=== PATIENT | male | born 1980 | race Caucasian/White ===

== ENCOUNTER 2021-05-25 01:24 | Emergency (ER) | payer OTHER, SELFPAY ==
--- OUTSIDE RECORDS SUMMARY | 2021-05-25 01:27 | XMS REPORT | Continuity of Care Document ---
:1980 Author Organization [facility] t Address [address] [place] [address] Care Team Providers Name Role Phone PCP, DOES NOT HAVE A Primary Care Physician Unavailable Prateek MEZA L Attending Clinician Mandy DIAZ S Attending Clinician Jewels ONTIVEROS Attending Clinician Unavailable Beni LOPEZ Attending Clinician Unavailable MOREIRA Attending Clinician Unavailable MOREIRA Admitting Clinician Unavailable Payers Payer Name Policy Type Policy Number Effective Date Expiration Date S kimi [facility] - [id number] 2019 00:00:00 OUT OF STATE Problems Condition Condition Condition Status Onset Resolution Last Treating Co mments Source Name Details Category Date Date Treatment Clinician Date No known No known Disease Unive rs active active ity of problems problems [facility] Allergies, Adverse Reactions, Alerts Allergy Allergy Status Severity Reaction(s) Onset Inactive Treating Comm ents Source Name Type Date Date Clinician KETOROLA DRUG Active Anxiety Univers C INGREDI 6-30 ity of TROMETHA 00:00: [place] MINE 00 Medical Branch Ketorola Propensi Active Anxiety 0 Unive rs c ty to 6-30 ity of Trometha adverse 00:00: [place] mine reaction Medical s Branch Social History Social Habit Start Date Stop Date Quantity Comments Source History of Chews Tobacco University of tobacco use [place] [facility] [place] History SDGA University o f Alcohol Frequency [place] [facility] History SDGA University o f Alcohol Std [place] [facility] Drinks Branch History SDGA University o f Alcohol Binge [place] [facility] [place] Exposure to Not sure University of SARS-CoV-2 [place] [facility] (event) Branch Tobacco use and 2021-01-09 2021-01-09 Current user Univers ity of exposure 00:00:00 00:00:00 [facility] Alcohol intake 2021-01-09 2021-01-09 Current drinker of Un iversity of 00:00:00 00:00:00 alcohol (finding) [facility] edical [place] Alcohol Comment 2021-01-09 2021-01-09 Occasionally Univers ity of 00:00:00 00:00:00 [facility] Sex Assigned At [birth year] Universit y of 00:00:00 00:00:00 [facility] Smoking Status Start Date Stop Date Source Current every day smoker 2021-01-09 00:00:00 Uni versity of [facility] Medications Ordered Filled Start Stop Current Ordering Indication Dosage Frequency Signature Comments Components Source Medication Medication Date Date Medication? Clinician (SIG) Name Name lisinopril Yes 5mg Take 5 mg Un wilver 2.5 mg 7-30 by mouth ity of tablet 10:23: daily. [place] [address] [facility] methylPREDN Yes [id number] 84mg Take 21 Univers ISolone 7-30 tablets by ity of (MEDROL, 00:00: mouth [place] ELLA,) 4 mg 00 SEE-INSTRU Med ical tablets CTIONS. Branch follow package directions omeprazole Yes 40mg Take 40 mg U nivers 40 mg 7-17 by mouth ity of capsule 00:00: daily. [place] [address] [facility] amLODIPine Yes 1{tbl} Take 1 Uni vers 5 mg tablet 7-17 tablet by ity of 00:00: mouth [place] 00 daily. Medical Branch ondansetron Yes [id number] 4mg Take 1 Univers (ZOFRAN 8-31 tablet by ity of ODT) 4 mg 00:00: mouth [place] disintegrat 00 every 8 Medic al ing tablet (eight) Branch hours as needed for Nausea and Vomiting (N/V). acetaminoph Yes [id number] 1{tbl} Take 1 Univers en-codeine 6-09 [id number] tablet by it y of (TYLENOL-CO 00:00: mouth [place] DEINE #3) 00 every 6 Medical 300-30 mg (six) Branch tablet hours as needed for Pain (scale 7-10). ibuprofen Yes [id number] 800mg Take 1 Univers 800 mg 11-19 [id number] tablet by ity of tablet 00:00: mouth 00 every 8 Medical (eight) Branch hours as needed for Pain (scale 4-6). traMADOL 50 Yes 50mg Take 1 Univ ers mg tablet 6-24 tablet by ity o f 00:00: mouth 00 every 6 Medical (six) Branch hours as needed (pain). Immunizations Ordered Filled Immunization Date Status Comments [facility] e Immunization Name Name TDAP (ADACEL) 2019-11-20 Completed University of VACCINE 00:00:00 [facility] Vital Signs Vital Name Observation Time Observation Value Comments Source Systolic blood 2021-01-09 15:20:00 113 mm[Hg] Univer sity [facility] Diastolic blood 2021-01-09 15:20:00 73 [facility]Hg[facility] 2021-01-09 15:20:00 78 /min [facility] Procedures This patient has no known procedures. Encounters Start End Encounter Admission Attending Care Care Encounter Source Date/Time Date/Time Type Type Clinicians Facility Department ID 2021-04-14 Emergency [facility] [id number] Univers 01:24:14 [facility] 2021-01-09 2021-01-[address] [facility] [id number] Univers 10:16:46 10:52:49 Visit Silvino Ontiveros [id number] [facility] [id number] Brad as SPECIALTI [id number] Hi dical ES 198 Branch [place] 2021-01-09 2021-01-09 Outpatient R MANDY [facility] [id number] Univers 10:15:00 10:52:49 SILVINO lee [facility] 2020-11-22 2020-11-[address] [facility] ERT [id number] Univers 22:49:00 22:49:00 SEDRICK [facility] 2020-11-04 2020-11-[address] [facility] ERT [id number] Univers 22:01:00 [facility]:47[facility] 2020-02-11 2020-02-11 [facility] [id number] Univers 00:51:00 00:51:00 SEGUNDO [facility] 2019-11-20 2019-11-20 Emergency X MOREIRA, [facility] ERT [id number] Univers 19:36:41 [facility]:05[facility] This patient has no known results.
[2021-05-25 01:44] LABS: Urine Blood Trace-intact (Negative); Urine Glucose Negative (Negative); Urine Protein Negative (Negative); Urine pH 5.5 (5.0-7.0)
[2021-05-25] MEDS ORDERED: ONDANSETRON 4 MG/2 ML VIAL ONE (01:48)
[2021-05-25] MEDS ORDERED: NA CHLORIDE 0.9% 1,000 ML ONE ×3 (01:48→04:53)
[2021-05-25] MEDS ORDERED: FAMOTIDINE 20 MG/2 ML VIAL IV ONE (01:48)
[2021-05-25 01:56] LABS: Absolute Lymphocytes (CBC) 4.2 K/uL (0.7-4.9); Basophils % 0.4 % (0-1.3); Hematocrit 44.3 % (39.6-49.0); Lymphocytes % 42.4 % (15.3-44.8); RBC Red Blood Cell Count 4.97 M/uL (4.33-5.43)
[2021-05-25 01:59] LABS: Protime INR 1.01
[2021-05-25 02:04] LABS: Barbiturates NEGATIVE (NEGATIVE); Benzodiazepines NEGATIVE (NEGATIVE); Cocaine NEGATIVE (NEGATIVE); METHAMPHETAM NEGATIVE (NEGATIVE); Methadone NEGATIVE (NEGATIVE); Opiates NEGATIVE (NEGATIVE); Phencyclidine NEGATIVE (NEGATIVE); THC Cannibis NEGATIVE (NEGATIVE)
[2021-05-25 02:11] LABS: ALT/SGPT 54 U/L (12-78); AST/SGOT 22 U/L (15-37); Albumin 4.1 g/dL (3.4-5.0); Alkaline Phosphatase 90 U/L (45-117); BUN Blood Urea Nitrogen 9 mg/dL (7-18); Bicarbonate 24 mmol/L (21-32); Bilirubin Direct < 0.1 mg/dL (0-0.2); Bilirubin Total 0.2 mg/dL (0.2-1.0); Glucose Level 110 mg/dL (74-106); Potassium 3.4 mmol/L (3.5-5.1); Protein, Total 7.8 g/dL (6.4-8.2); Sodium Level 147 mmol/L (136-145)
[2021-05-25] MEDS ORDERED: KCL 20 MEQ/100 mL IVPB 100 ML IV ONE (04:53)
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
--- NOTE | 2021-05-25 05:08 | EDPHYS ---
Physician Documentation [facility] Name: Sergo Bliss Sr Age: 40 yrs Sex: Male : 1980 Arrival Date: 05/25/2021 Time: 01:26 Bed 8 Private MD: ED Physician Jack Miranda HPI: 05/25 01:50 This 40 yrs old Male presents to ER via Unassigned with complaints of Alcohol cp Intoxication. 01:50 The patient presents to the emergency department alcohol intoxication. Context: EMS cp reports patient has been consuming alcohol all evening. Associated signs and symptoms: Pertinent positives: decreased level of consciousness, Pertinent negatives: auditory hallucinations, visual hallucinations, suicidal ideations. Historical: - Allergies: 01:56 Toradol; lp1 - Home Meds: 01:56 amlodipine 5 mg tab 1 tab once daily [Active]; omeprazole 40 mg Oral cpDR 1 cap 2 times lp1 per day [Active]; - PMHx: 01:56 Hypertension; GERD; lp1 - PSHx: 01:56 Unable to Obtain; lp1 - Immunization history:: Adult Immunizations up to date. - Social history:: Smoking status: Patient reports the use of cigarette tobacco products, smokes one-half pack cigarettes per day. ROS: 01:55 Constitutional: Negative for fever. cp 01:55 Eyes: Negative for injury, pain, redness, and discharge. cp 01:55 Cardiovascular: Negative for chest pain. 01:55 Respiratory: Negative for wheezing. 01:55 Abdomen/GI: Positive for nausea and vomiting, Negative for diarrhea, constipation. 01:55 Neuro: Positive for altered mental status, Negative for seizure activity. 01:55 All other systems are negative. Exam: 01:56 ECG was reviewed by the Attending Physician. cp 02:00 Head/Face: Normocephalic, atraumatic. cp 02:00 Constitutional: The patient appears non-diaphoretic, well developed, well nourished. 02:00 Eyes: Pupils: equal, round, and reactive to light and accomodation, Conjunctiva: normal, no exudate, no injection, Lids and lashes: appear normal, bilaterally. 02:00 ENT: External ear(s): are unremarkable, Nose: is normal, Mouth: Lips: moist, Oral mucosa: moist, Posterior pharynx: Airway: no evidence of obstruction, patent. 02:00 Neck: C-spine: vertebral tenderness, is not appreciated, crepitus, is not appreciated, ROM/movement: is normal, is supple, no meningismus, no nuchal rigidity. 02:00 Chest/axilla: Inspection: normal, Palpation: is normal, no crepitus, no tenderness. 02:00 Cardiovascular: Rate: tachycardic, Rhythm: regular. 02:00 Respiratory: the patient does not display signs of respiratory distress, Respirations: cp normal, no use of accessory muscles, no retractions, Breath sounds: are clear throughout, no decreased breath sounds, no stridor, no wheezing. 02:00 Abdomen/GI: Inspection: abdomen appears normal, Palpation: abdomen is soft and non-tender, in all quadrants. 02:00 Musculoskeletal/extremity: Exam is negative for decreased range of motion, deformity, injury. 02:00 Neuro: Mentation: somnolent, Motor: moves all fours, strength is normal. Vital Signs: 01:30 BP 138 / 95; Pulse 120; Resp 20; Temp 98.1(TE); Pulse Ox 98% on R/A; lp1 02:30 BP 128 / 97; Pulse 98; Resp 18; Pulse Ox 97% on R/A; lp1 03:49 BP 108 / 61; Pulse 87; Resp 16; Pulse Ox 97% on R/A; lp1 04:45 BP 95 / 50; Pulse 95; Resp 17; Pulse Ox 96% on R/A; lp1 05:43 BP 104 / 46; Pulse 82; Resp 16; Pulse Ox 97% on R/A; lp1 07:00 BP 107 / 78; Pulse 76; Resp 16; Pulse Ox 97% on R/A; Pain 0/10; ll3 MDM: 01:26 Patient medically screened. [facility] 02:00 Differential diagnosis: alcohol intoxication, intracranial bleed, drug overdose. 03:00 Data reviewed: vital signs, nurses notes, lab test result(s), EKG. 03:00 Test interpretation: by ED physician or midlevel provider: ECG. 05/25 01:27 Order name: Acetaminophen 05/25 01:27 Order name: Basic Metabolic Panel 05/25 01:27 Order name: CBC with Diff 05/25 01:27 Order name: ETOH Level 05/25 01:27 Order name: Hepatic Function cp 05/25 01:27 Order name: PT-INR; Complete Time: 02:19 cp 05/25 01:27 Order name: Ptt, Activated; Complete Time: 02:19 cp 05/25 01:27 Order name: Salicylate; Complete Time: 02:19 05/25 02:20 Interpretation: Reviewed. 05/25 01:27 Order name: Urine Drug Screen; Complete Time: 02:19 cp 05/25 01:27 Order name: Acetaminophen Level; Complete Time: 02:19 EDMS 05/25 02:19 Interpretation: Reviewed. 05/25 01:27 Order name: Basic Metabolic Panel; Complete Time: 02:19 EDMS 05/25 02:20 Interpretation: Normal except: NA 147; K 3.4; CL 113; GLUC 110; GFR 78. 05/25 01:27 Order name: CBC with Automated Diff; Complete Time: 02:19 EDMS 05/25 01:27 Order name: Alcohol Serum/Plasma; Complete Time: 02:19 EDMS 05/25 02:20 Interpretation: Abnormal: ETOH 291. cp 05/25 01:27 Order name: Liver (Hepatic) Function; Complete Time: 02:19 EDMS 05/25 02:20 Interpretation: Normal except: GLOB 3.7. 05/25 01:27 Order name: EKG; Complete Time: 01:27 cp 05/25 01:27 Order name: EKG - Nurse/Tech; Complete Time: 01:46 05/25 01:27 Order name: IV Saline Lock; Complete Time: 01:46 05/25 01:27 Order name: Labs collected and sent; Complete Time: 01:46 05/25 01:27 Order name: Suicide Screening ([place]); Complete Time: 01:46 05/25 01:27 Order name: Urine Dipstick-Ancillary (obtain specimen); Complete Time: 01:46 05/25 01:44 Order name: Urine Dipstick-Ancillary; Complete Time: 02:19 EDWA 05/25 03:11 Order name: CT Head C Spine cp EC:56 Rate is 108 beats/min. Rhythm is regular. MD interval is normal. QRS interval is cp prolonged at 110 msec. QT interval is normal. T waves are Inverted in lead aVR. Interpreted by me. Reviewed by me. Administered Medications: 01:50 Drug: NS 0.9% 1000 ml Route: IV; Rate: 1 bolus; Site: right antecubital; lp1 03:14 Follow up: IV Status: Completed infusion; IV Intake: 1000ml lp1 01:51 Drug: Zofran (Ondansetron) 4 mg Route: IVP; Site: right antecubital; lp1 03:14 Follow up: Response: Nausea is decreased lp1 01:51 Drug: Pepcid (famotidine) 20 mg Route: IVP; Site: right antecubital; lp1 03:14 Follow up: Response: No adverse reaction lp1 03:19 Drug: NS 0.9% 1000 ml Route: IV; Rate: 1 bolus; Site: right antecubital; lp1 04:59 Follow up: IV Status: Completed infusion; IV Intake: 1000ml lp1 03:53 Drug: Zofran (Ondansetron) 4 mg Route: IVP; Site: right antecubital; lp1 04:55 Drug: Potassium Chloride 20 mEq Route: IV; Rate: per protocol; Site: right antecubital; lp1 06:51 Follow up: IV Status: Completed infusion; IV Intake: 100ml lp1 04:55 Drug: NS 0.9% 1000 ml Route: IV; Rate: 1 bolus; Site: right antecubital; lp1 Disposition: 11:07 Co-signature as Attending Physician, Jack Miranda MD I agree with the assessment and vel plan of care. Disposition Summary: 05/25/21 05:08 Discharge Ordered Location: Home vel Problem: new vel Symptoms: have improved vel Condition: Stable vel Diagnosis - Alcohol use, unspecified with intoxication vel - Hypokalemia vel Followup: cp - With: Private Physician - When: 1 - 2 days - Reason: Recheck today's complaints Discharge Instructions: - Potassium Content of Foods vel - Hypokalemia vel - Discharge Summary Sheet cp - Alcohol Intoxication cp Forms: - Medication Reconciliation Form vel - Thank You Letter vel - Antibiotic Education vel - Prescription Opioid Use vel Prescriptions: - Pepcid 20 mg Oral Tablet - take 1 tablet by ORAL route every 12 hours for 10 days; 20 tablet; Refills: 0, vel Product Selection Permitted - Zofran 4 mg Oral Tablet - take 1 tablet by ORAL route every 12 hours As needed; 20 tablet; Refills: 0, vel Product Selection Permitted Signatures: Dispatcher [employer] Jack Nolan MD MD cha Pena, Laura, RN RN lp1 Misha Richardson, ATMOSPHERIC PHYSICIST-C ATMOSPHERIC PHYSICIST-Cla1 Jack Wong PA PA cp
[2021-05-25 08:48] VITALS: TEMP 98.1
[2021-05-25 08:55] VITALS: O2SAT 97
[2021-05-25 08:57] VITALS: BP 107/78
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
== END 2021-05-25 08:42 | disposition home or self-care (01) ==
LOC: ER 01:24
DX: F10.929 Alcohol use, unspecified with intoxication, unspecified (principal); E87.6 Hypokalemia; I10 Essential (primary) hypertension; F17.210 Nicotine dependence, cigarettes, uncomplicated; Z88.5 Allergy status to narcotic agent
CPT/HCPCS: 36415; 70450; 72125; 80048; 80076; 80307; 80320; 80329; 81003; 85025; 85610; 85730; 93005; 96361; 96365; 96366; 96375; 99284; J2405; J3480; J7030

== ENCOUNTER 2021-10-19 02:39 | Emergency (ER) | payer BC ==
--- OUTSIDE RECORDS SUMMARY | 2021-10-19 02:42 | XMS REPORT | Continuity of Care Document ---
:1980 Author Organization [facility] t Address [address] [place] [address] Care Team Providers Name Role Phone PCP, DOES NOT HAVE A Primary Care Physician Unavailable ROB Attending Clinician Unavailable Prateek MEZA, L Attending Clinician Mandy DIAZ S Attending Clinician Jewels ONTIVEROS Attending Clinician Unavailable Beni LOPEZ Attending Clinician Unavailable HARISH Attending Clinician Unavailable MOREIRA Admitting Clinician Unavailable Payers Payer Name Policy Type Policy Number Effective Date Expiration Date S kimi [id number] 2019 00:00:00 OUT OF STATE Problems Condition Condition Condition Status Onset Resolution Last Treating Co mments Source Name Details Category Date Date Treatment Clinician Date No known No known Disease NPI:1 83 active active [id number] problems problems Allergies, Adverse Reactions, Alerts Allergy Allergy Status Severity Reaction(s) Onset Inactive Treating Comm ents Source Name Type Date Date Clinician Ketorola Propensi Active Anxiety NPI:1 83 c ty to 12-10 [id number] Trometha adverse 00:00: mine reaction 00 s KETOROLA DRUG Active Anxiety NPI:183 C INGREDI 12-10 [id number] TROMETHA 00:00: MINE 00 Social History Social Habit Start Date Stop Date Quantity Comments Source History of Chews Tobacco NPI:[id number] tobacco use History SDOH NPI:[id number] Alcohol Frequency History SDOH NPI:[id number] 81 Alcohol Std Drinks History SDOH NPI:[id number] 81 Alcohol Binge Exposure to Not sure NPI:[id number] 1 SARS-CoV-2 (event) Tobacco use and 2021-01-09 2021-01-09 Current user NPI:959 [id number] exposure 00:00:00 00:00:00 Alcohol intake 2021-01-09 2021-01-09 Current drinker of [employer] I:[id number] 00:00:00 00:00:00 alcohol (finding) Alcohol Comment 2021-01-09 2021-01-09 Occasionally NPI:915 [id number] 00:00:00 00:00:00 Sex [birth year] At [birth year] NPI:[id number] 00:00:00 00:00:00 Smoking Status Start Date Stop Date Source Tobacco smoking consumption unknown Current every day smoker 2021-01-09 00:00:00 NPI :[id number] Medications Ordered Filled Start Stop Current Ordering Indication Dosage Frequency Signature Comments Components Source Medication Medication Date Date Medication? Clinician (SIG) Name Name lisinopril Yes 5mg Take 5 mg [employer] I:183 2.5 mg 7-30 by mouth [id number] tablet 10:23: daily. 21 methylPREDN Yes [id number] 84mg Take 21 NPI:183 ISolone 7-30 tablets by [id number] (MEDROL, 00:00: mouth ELLA,) 4 mg 00 SEE-INSTRU tablets CTIONS. follow package directions omeprazole Yes 40mg Take 40 mg N PI:183 40 mg 7-17 by mouth [id number] capsule 00:00: daily. 00 amLODIPine Yes 1{tbl} Take 1 NPI :183 5 mg tablet 7-17 tablet by [id number] 00:00: mouth 00 daily. ondansetron Yes [id number] 4mg Take 1 NPI:183 (ZOFRAN 8-31 tablet by [id number] ODT) 4 mg 00:00: mouth disintegrat 00 every 8 ing tablet (eight) hours as needed for Nausea and Vomiting (N/V). acetaminoph 2019-0 Yes [id number] 1{tbl} Take 1 NPI:183 en-codeine 6-09 [id number] tablet by [id number] (TYLENOL-CO 00:00: mouth DEINE #3) 00 every 6 300-30 mg (six) tablet hours as needed for Pain (scale 7-10). ibuprofen Yes [id number] 800mg Take 1 NPI:183 800 mg 11-19 [id number] tablet by [id number] 1 tablet 00:00: mouth 00 every 8 (eight) hours as needed for Pain (scale 4-6). traMADOL 50 Yes 50mg Take 1 NPI: 183 mg tablet 6-24 [place] [id number] 00:00: mouth 00 every 6 (six) hours as needed (pain). Immunizations Ordered Immunization Filled Immunization Date Status Commen ts Source Name Name TDAP (ADACEL) 2019-11-20 Completed NPI:[id number] VACCINE 00:00:00 Vital Signs Vital Name Observation Time Observation Value Comments Source Systolic blood pressure 2021-01-09 15:20:00 113 mm[Hg] Diastolic blood 2021-01-09 15:20:00 73 mm[Hg] NPI:1 [id number] pressure Heart rate 2021-01-09 15:20:00 78 /min NPI:[id number] Procedures This patient has no known procedures. Encounters Start End Encounter Admission Attending Care Care Encounter Source Date/Time Date/Time Type Type Clinicians Facility Department ID 2021-07-06 Outpatient ROB [facility] [id number] NPI:152 13:49:19 CARRIE [id number] 2021-04-14 Emergency [facility] [id number] NPI:183 01:24:14 [id number] 6832-02-11 2021-07-24 Telephone VARINDER Nuñez 6400 [id number] NPI:152 00:00:00 00:00:00 Carrie ARI [id number] 2021-01-09 2021-01-09 Office Rosas Chandra [facility] [id number] NPI:183 10:16:46 10:52:49 Visit Silvino Ontiveros [facility] [id number] SURGICAL [id number] [facility] [id number] ES [address] [place] 2021-01-09 2021-01-09 Outpatient R MANDY [facility] [id number] NPI:183 10:15:00 10:52:49 SILVINO [id number] 2020-11-22 2020-11-22 Emergency X JOHN [facility] ERT [id number] NPI:183 22:49:00 22:49:00 SEDRICK [id number] 1 2020-11-04 2020-11-04 Emergency X [facility] ERT [id number] NPI:183 22:01:00 23:47:00 [id number] 2020-02-11 2020-02-11 Emergency [facility] ERT [id number] NPI:183 00:51:00 00:51:00 SEGUNDO [id number] 1 2019-11-20 2019-11-20 Emergency X HARISH [facility] ERT [id number] NPI:183 19:36:41 22:05:00 SEGUNDO [id number] 1 Results This patient has no known results.
[2021-10-19 02:58] LABS: Urine Blood Negative (Negative); Urine Glucose Negative (Negative); Urine Protein Negative (Negative); Urine Specific Gravity <=1.005 (1.005-1.030)
[2021-10-19 03:17] LABS: Absolute Lymphocytes (CBC) 3.3 K/uL (0.7-4.9); Hematocrit 42.4 % (39.6-49.0); Lymphocytes % 46.7 % (15.3-44.8); MPV 8.3 fL (7.6-11.3); RBC Red Blood Cell Count 4.83 M/uL (4.33-5.43)
[2021-10-19 03:18] LABS: Protime INR 1.02
[2021-10-19 03:20] LABS: Barbiturates NEGATIVE (NEGATIVE); Benzodiazepines NEGATIVE (NEGATIVE); Cocaine NEGATIVE (NEGATIVE); METHAMPHETAM NEGATIVE (NEGATIVE); Methadone NEGATIVE (NEGATIVE); Opiates NEGATIVE (NEGATIVE); Phencyclidine NEGATIVE (NEGATIVE); THC Cannibis NEGATIVE (NEGATIVE)
[2021-10-19 03:42] LABS: ALT/SGPT 68 U/L (12-78); AST/SGOT 26 U/L (15-37); Albumin 3.9 g/dL (3.4-5.0); Alkaline Phosphatase 83 U/L (45-117); BUN Blood Urea Nitrogen 11 mg/dL (7-18); Bicarbonate 23 mmol/L (21-32); Bilirubin Total 0.3 mg/dL (0.2-1.0); Glucose Level 103 mg/dL (74-106); Potassium 3.2 mmol/L (3.5-5.1); Protein, Total 7.4 g/dL (6.4-8.2); Sodium Level 142 mmol/L (136-145)
[2021-10-19] MEDS ORDERED: NA CHLORIDE 0.9% 1,000 ML ONE ×2 (03:44→06:31)
[2021-10-19 03:45] LABS: Bilirubin Direct < 0.1 mg/dL (0-0.2)
[2021-10-19 04:04] LABS: Troponin High Sensitivity 7.9 pg/mL (<58.9)
[2021-10-19 04:44] LABS: Magnesium 2.1 mg/dL (1.8-2.4)
[2021-10-19] MEDS ORDERED: PROMETHAZINE INJ 25 MG/ML AMP ONE (05:19)
[2021-10-19] MEDS ORDERED: FAMOTIDINE 20 MG/2 ML VIAL IV ONE (05:19)
[2021-10-19] MEDS ORDERED: MULTIVITAMINS 10 ML VIAL (INJ) IV ONE (06:31)
[2021-10-19] MEDS ORDERED: THIAMINE 200 MG/2 ML INJ ONE (06:31)
[2021-10-19] MEDS ORDERED: FOLIC ACID 5 MG/ML VIAL ONE (06:32)
--- NOTE | 2021-10-19 06:57 | ER ---
Nurse's Notes [facility] Name: Sergo Bliss Sr Age: 41 yrs Sex: Male : 1980 Arrival Date: 10/19/2021 Time: 02:41 Bed 5 Private MD: Diagnosis: Palpitations;Alcohol use, unspecified with intoxication Presentation: 10/19 02:41 Chief complaint: EMS states: family called EMS for seizure like activity, on arrival pt as6 said he had been drinking and when he drinks she will shake, hx of afib. Chief complaint: Patient states: "I am having chest pain". Coronavirus screen: At this time, the client does not indicate any symptoms associated with coronavirus-19. Ebola Screen: No symptoms or risks identified at this time. Initial Sepsis Screen: Does the patient meet any 2 criteria? No. Patient's initial sepsis screen is negative. Does the patient have a suspected source of infection? No. Patient's initial sepsis screen is negative. Risk Assessment: Do you want to hurt yourself or someone else? Patient reports no desire to harm self or others. Onset of symptoms was October 19, 2021. 02:41 Method Of Arrival: EMS: [facility] as6 02:41 Acuity: LAMAR 2 as6 02:50 Care prior to arrival: Medication(s) given: ASA, 81 mg, x 4, Nitroglycerin, 0.4 mg SL as6 IV initiated. 20 GA, in the left forearm. Historical: - Allergies: 02:47 Toradol; as6 - Home Meds: 02:47 amlodipine 5 mg tab 1 tab once daily [Active]; lisinopril 5 mg Oral tab 1 tab once as6 daily [Active]; omeprazole 40 mg Oral cpDR 1 cap 2 times per day [Active]; - PMHx: 02:47 GERD; Hypertension; Atrial fibrillation; as6 - PSHx: 02:47 Cholecystectomy; right hand; as6 - Immunization history:: Adult Immunizations not up to date. - Social history:: Smoking status: Patient reports the use of cigarette tobacco products, smokes one pack cigarettes per day. Patient uses alcohol. Screenin:49 Abuse screen: Denies threats or abuse. Denies injuries from another. Nutritional as6 screening: No deficits noted. Tuberculosis screening: No symptoms or risk factors identified. Fall Risk None identified. Assessment: 03:04 General: Appears in no apparent distress. Behavior is calm, cooperative. General: as6 Smells of alcohol. Pain: Complains of pain in chest Quality of pain is described as pressure, sharp. Neuro: Level of Consciousness is awake, alert, obeys commands, Oriented to person, place, time, situation. Cardiovascular: Rhythm is sinus tachycardia. Respiratory: Respiratory effort is even, unlabored, Respiratory pattern is regular, symmetrical. 03:56 Reassessment: Patient appears in no apparent distress at this time. as6 05:20 General: pt vomited on CT table, upon arrival back to room pt vomiting, provider as6 notified . 06:34 Reassessment: Patient appears in no apparent distress at this time. Patient states as6 feeling better. 07:16 Reassessment: Received report from ZHANE Soto. Pt up for discharge and can be discharged jl7 once fluids are done infusing. Approximately 700 mL left to infuse. 09:00 Reassessment: PT AOx4, AMBULATING WITH STEADY GAIT. bp 09:38 Reassessment: PT D/C HOME AMBULATORY, DX WITH ETOH INTOXICATION. bp Vital Signs: 02:41 BP 131 / 64; Pulse 120 MON; Resp 13 S; Temp 97.9(O); Pulse Ox 98% on R/A; Weight 99.79 as6 kg (R); Height 5 ft. 10 in. (177.80 cm) (R); Pain 7/10; 03:55 BP 106 / 63; Pulse 103; Resp 17 S; Pulse Ox 94% on R/A; as6 05:00 BP 101 / 49; Pulse 91; Resp 15 S; Pulse Ox 94% on R/A; as6 05:41 BP 152 / 97; Pulse 86; Resp 16 S; Pulse Ox 99% on R/A; as6 06:33 BP 125 / 86; Pulse 82; Resp 14 S; Pulse Ox 96% on R/A; as6 07:30 BP 131 / 85; Pulse 79; Resp 17; Pulse Ox 99% ; bp 09:38 BP 120 / 82; Pulse 74; Resp 16; Temp 97.5; Pulse Ox 99% ; bp 02:41 Body Mass Index 31.57 (99.79 kg, 177.80 cm) as6 ED Course: 02:41 Patient arrived in ED. as6 02:47 Triage completed. as6 02:48 Arm band placed on. EKG completed in triage. Results shown to MD. as6 02:49 Charles Anglin, RN is Primary Nurse. as6 02:49 Placed in gown. Bed in low position. Call light in reach. Side rails up X2. Client as6 placed on continuous cardiac and pulse oximetry monitoring. NIBP monitoring applied. Warm blanket given. 02:56 Urine Drug Screen Sent. mw2 03:02 Chad Gutierrez MD is Attending Physician. 7 03:04 Maintain EMS IV. Dressing intact. Good blood return noted. Site clean \\T\\ dry. Gauge \\T\\ as 6 site: 20g LFA. 05:04 Chest Single View XRAY In Process Unspecified. EDMS 05:18 CT Chest For PE Angio In Process Unspecified. EDMS 07:30 No provider procedures requiring assistance completed. IV discontinued, intact, bp bleeding controlled, No redness/swelling at site. Pressure dressing applied. 07:44 Primary Nurse role handed off by Charles Anglin, ZHANE bd 09:38 Sal Sweeney, ZHANE is Primary Nurse. bp Administered Medications: 03:46 Drug: NS 0.9% 1000 ml Route: IV; Rate: 1000 ml; Site: left forearm; as6 06:33 Follow up: Response: No adverse reaction; IV Status: Completed infusion; IV Intake: as6 1000ml 05:22 Drug: Phenergan (promethazine) 12.5 mg Route: IVP; Site: left forearm; as6 06:33 Follow up: Response: No adverse reaction as6 05:22 Drug: Pepcid (famotidine) 20 mg Route: IVP; Site: left forearm; as6 06:33 Follow up: Response: No adverse reaction as6 06:32 Drug: Banana Bag - (NS 0.9% 1000 ml, foLIC Acid 1 mg, Thiamine 100 mg, Multivitamin 1 as6 amp) Route: IV; Rate: calculated rate; Site: left forearm; 09:40 Follow up: IV Status: Completed infusion; IV Intake: 1000ml bp Intake: 06:33 IV: 1000ml; Total: 1000ml. as6 09:40 IV: 1000ml; Total: 2000ml. bp Outcome: 06:57 Discharge ordered by MD. mh7 07:30 Discharged to home ambulatory. bp 07:30 Condition: stable 07:30 Discharge instructions given to patient, Instructed on discharge instructions, follow up and referral plans. Demonstrated understanding of instructions, follow-up care. 09:40 Patient left the ED. bp Signatures: Dispatcher [employer] EDMS Christelle Parker Jahala, RN RN jl7 Sal Sweeney RN RN bp Samuel Clarke 2 Chad Gutierrez MD MD mh7 Charles Anglin RN RN as6
--- NOTE | 2021-10-19 06:57 | EDPHYS ---
Physician Documentation [facility] Name: Sergo Bliss Sr Age: 41 yrs Sex: Male : 1980 Arrival Date: 10/19/2021 Time: 02:41 Bed 5 Private MD: ED Physician Chad Gutierrez HPI: 10/19 02:55 This 41 yrs old Male presents to ER via EMS with complaints of Alcohol Intoxication. 7 02:55 The patient presents to the emergency department Alcohol use. Context: Method: the 7 patient has a confirmed or suspected ingestion, of alcohol, Time: today, Extent: moderate ingestion, approximately 12 cups/bottles of beer, the OD/poisoning occurred at at home, and was witnessed by family, Psychiatric history: none, Previous OD/poisoning history: none. Associated signs and symptoms: Pertinent positives: palpitations, Pertinent negatives: anxiety, apnea, auditory hallucinations, burning of skin, decreased level of consciousness, depression, diaphoresis, diarrhea, dizziness, incontinence, loss of consciousness, nausea. Severity of symptoms: At their worst the symptoms were moderate today, in the emergency department the symptoms have improved moderately. Historical: - Allergies: 02:47 Toradol; as6 - Home Meds: 02:47 amlodipine 5 mg tab 1 tab once daily [Active]; lisinopril 5 mg Oral tab 1 tab once as6 daily [Active]; omeprazole 40 mg Oral cpDR 1 cap 2 times per day [Active]; - PMHx: 02:47 GERD; Hypertension; Atrial fibrillation; as6 - PSHx: 02:47 Cholecystectomy; right hand; as6 - Immunization history:: Adult Immunizations not up to date. - Social history:: Smoking status: Patient reports the use of cigarette tobacco products, smokes one pack cigarettes per day. Patient uses alcohol. ROS: 02:55 Constitutional: Negative for fever, chills, and weight loss, Eyes: Negative for injury, mh7 pain, redness, and discharge, ENT: Negative for injury, pain, and discharge, Neck: Negative for injury, pain, and swelling, Respiratory: Negative for shortness of breath, cough, wheezing, and pleuritic chest pain. 02:55 Abdomen/GI: Negative for abdominal pain, nausea, vomiting, diarrhea, and constipation, Back: Negative for injury and pain, : Negative for injury, bleeding, discharge, and swelling, MS/Extremity: Negative for injury and deformity, Skin: Negative for injury, rash, and discoloration, Neuro: Negative for headache, weakness, numbness, tingling, and seizure, Psych: Negative for depression, anxiety, suicide ideation, homicidal ideation, and hallucinations, Allergy/Immunology: Negative for hives, rash, and allergies, Endocrine: Negative for neck swelling, polydipsia, polyuria, polyphagia, and marked weight changes, Hematologic/Lymphatic: Negative for swollen nodes, abnormal bleeding, and unusual bruising. 02:55 Cardiovascular: Negative for chest pain, edema, orthopnea, paroxysmal nocturnal dyspnea. Exam: 02:55 Head/Face: Normocephalic, atraumatic. Eyes: Pupils equal round and reactive to light, mh7 extra-ocular motions intact. Lids and lashes normal. Conjunctiva and sclera are non-icteric and not injected. Cornea within normal limits. Periorbital areas with no swelling, redness, or edema. ENT: Nares patent. No nasal discharge, no septal abnormalities noted. Tympanic membranes are normal and external auditory canals are clear. Oropharynx with no redness, swelling, or masses, exudates, or evidence of obstruction, uvula midline. Mucous membranes moist. Neck: Trachea midline, no thyromegaly or masses palpated, and no cervical lymphadenopathy. Supple, full range of motion without nuchal rigidity, or vertebral point tenderness. No Meningismus. Chest/axilla: Normal chest wall appearance and motion. Nontender with no deformity. No lesions are appreciated. 02:55 Respiratory: Lungs have equal breath sounds bilaterally, clear to auscultation and percussion. No rales, rhonchi or wheezes noted. No increased work of breathing, no retractions or nasal flaring. Abdomen/GI: Soft, non-tender, with normal bowel sounds. No distension or tympany. No guarding or rebound. No evidence of tenderness throughout. Back: No spinal tenderness. No costovertebral tenderness. Full range of motion. Skin: Warm, dry with normal turgor. Normal color with no rashes, no lesions, and no evidence of cellulitis. MS/ Extremity: Pulses equal, no cyanosis. Neurovascular intact. Full, normal range of motion. 02:55 Psych: Awake, alert, with orientation to person, place and time. Behavior, mood, and affect are within normal limits. 02:55 Constitutional: The patient appears in no acute distress, alert, awake, smells of alcohol, ETOH. 02:55 Cardiovascular: Rate: tachycardic, Rhythm: regular, Pulses: no pulse deficits are appreciated, Heart sounds: normal, normal S1and S2, Edema: is not appreciated, JVD: is not appreciated. 02:55 Neuro: Orientation: is normal, Mentation: is normal, Memory: is normal, Cranial nerves: grossly normal, Cerebellar function: is grossly normal, Motor: is normal, Sensation: is normal, Gait: not tested. seizure activity, is not displayed by the patient, Abnormal movements: there are no abnormal movements. Vital Signs: 02:41 BP 131 / 64; Pulse 120 MON; Resp 13 S; Temp 97.9(O); Pulse Ox 98% on R/A; Weight 99.79 as6 kg (R); Height 5 ft. 10 in. (177.80 cm) (R); Pain 7/10; 03:55 BP 106 / 63; Pulse 103; Resp 17 S; Pulse Ox 94% on R/A; as6 05:00 BP 101 / 49; Pulse 91; Resp 15 S; Pulse Ox 94% on R/A; as6 05:41 BP 152 / 97; Pulse 86; Resp 16 S; Pulse Ox 99% on R/A; as6 06:33 BP 125 / 86; Pulse 82; Resp 14 S; Pulse Ox 96% on R/A; as6 07:30 BP 131 / 85; Pulse 79; Resp 17; Pulse Ox 99% ; bp 09:38 BP 120 / 82; Pulse 74; Resp 16; Temp 97.5; Pulse Ox 99% ; bp 02:41 Body Mass Index 31.57 (99.79 kg, 177.80 cm) as6 MDM: 06:55 Differential diagnosis: Ingestion/exposure to alcohol polypharmacy, over medication, mh7 hypoglycemia. Data reviewed: vital signs, nurses notes, lab test result(s), cardiac enzymes, CBC, drug level(s), alcohol, electrolytes, EKG, radiologic studies, CT scan. Data interpreted: Pulse oximetry: on room air is 96 %. Interpretation: normal. Counseling: I had a detailed discussion with the patient and/or guardian regarding: the historical points, exam findings, and any diagnostic results supporting the discharge/admit diagnosis, lab results, radiology results, the need for outpatient follow up, to return to the emergency department if symptoms worsen or persist or if there are any questions or concerns that arise at home. Response to treatment: the patient's symptoms have resolved after treatment, the patient's blood pressure is in an acceptable range, mental status has returned to baseline, the patient no longer shows bradycardia, the patient is not short of breath, the patient is not tachycardic, the patient's pain is gone, the patient's temperature has normalized. 06:57 Patient medically screened. 10/19 02:53 Order name: Acetaminophen; Complete Time: 04:54 10/19 02:53 Order name: Basic Metabolic Panel; Complete Time: 04:54 10/19 02:53 Order name: CBC with Diff; Complete Time: 03:22 10/19 02:53 Order name: ETOH Level; Complete Time: 04:10/19 02:53 Order name: Hepatic Function; Complete Time: 04:54 10/19 02:53 Order name: PT-INR; Complete Time: 04:10/19 02:53 Order name: Ptt, Activated; Complete Time: 04:10/19 02:53 Order name: Salicylate; Complete Time: 04:10/19 02:53 Order name: Urine Drug Screen; Complete Time: 03:20 10/19 02:59 Order name: Urine Dipstick-Ancillary; Complete Time: 03:20 EDAL 10/19 03:20 Order name: Troponin High Sensitivity; Complete Time: 04:10/19 03:20 Order name: PROBNP; Complete Time: 04:10/19 02:53 Order name: EKG; Complete Time: 02:54 10/19 02:53 Order name: EKG - Nurse/Tech; Complete Time: 02:53 10/19 02:53 Order name: IV Saline Lock; Complete Time: 02:53 10/19 02:53 Order name: Labs collected and sent; Complete Time: 03:04 10/19 02:53 Order name: Suicide Screening ([place]); Complete Time: 02:53 10/19 02:53 Order name: Urine Dipstick-Ancillary (obtain specimen); Complete Time: 02:56 as6 10/19 03:45 Order name: Thyroid Stimulating Hormone; Complete Time: 04:54 EDMS 10/19 03:45 Order name: D-Dimer; Complete Time: 04:31 EDMS 10/19 04:31 Order name: Chest Single View XRAY [facility] 10/19 04:33 Order name: CT Chest For PE Angio [facility] 10/19 04:41 Order name: Magnesium; Complete Time: 04:54 EDMS Administered Medications: 03:46 Drug: NS 0.9% 1000 ml Route: IV; Rate: 1000 ml; Site: left forearm; as6 06:33 Follow up: Response: No adverse reaction; IV Status: Completed infusion; IV Intake: as6 1000ml 05:22 Drug: Phenergan (promethazine) 12.5 mg Route: IVP; Site: left forearm; as6 06:33 Follow up: Response: No adverse reaction as6 05:22 Drug: Pepcid (famotidine) 20 mg Route: IVP; Site: left forearm; as6 06:33 Follow up: Response: No adverse reaction as6 06:32 Drug: Banana Bag - (NS 0.9% 1000 ml, foLIC Acid 1 mg, Thiamine 100 mg, Multivitamin 1 as6 amp) Route: IV; Rate: calculated rate; Site: left forearm; 09:40 Follow up: IV Status: Completed infusion; IV Intake: 1000ml bp Disposition Summary: 10/19/21 06:57 Discharge Ordered Location: Home [facility] Problem: an acute exacerbation [facility] Symptoms: have improved [facility] Condition: Stable [facility] Diagnosis - Palpitations 7 - Alcohol use, unspecified with intoxication [facility] Followup: 7 - With: Private Physician - When: 1 - 2 days - Reason: Worsening of condition, Recheck today's complaints, Continuance of care, Re-evaluation by your physician Discharge Instructions: - Discharge Summary Sheet [facility] - Alcohol Intoxication, Xakg-[id number]-[id number] 7 - Palpitations, Oszc-zw-Bdci [facility] Forms: - Medication Reconciliation Form [facility] - Thank You Letter 7 - Antibiotic Education 7 - Prescription Opioid Use [facility] Signatures: Dispatcher [employer] Chad Aldrich MD MD mh7 Charles Anglin RN RN as6 Sal Sweeney RN bp Corrections: (The following items were deleted from the chart) 03:44 03:23 THYROID STIMULAT HORMONE+C.LAB.BRZ ordered. EDMS EDMS 03:45 03:23 D-DIMER+COAG.LAB.BRZ ordered. EDMS EDMS 04:41 04:33 MAGNESIUM+C.LAB.BRZ ordered. EDMS EDMS
--- NOTE | 2021-10-19 08:55 | EKG ---
Test Date: 2021-10-19 Test Time: 02:42:17 Pipe Coremaker: LEYDI MEASUREMENT RESULTS: Intervals: Rate: 126 RI: 156 QRSD: 108 QT: 312 QTc: 451 [place]: P: 61 RI: 156 QRS: 78 T: 43 INTERPRETIVE STATEMENTS: Sinus tachycardia Possible Lateral infarct, age undetermined Abnormal ECG Compared to ECG 05/25/2021 01:46:21 Myocardial infarct finding now present Incomplete right bundle-branch block no longer present Electronically Signed On 10-19-21 08:54:21 CDT by Viktor Zamora
[2021-10-19 10:06] VITALS: O2SAT 99
[2021-10-19 10:07] VITALS: BP 120/82; TEMP 97.5
--- NOTE | 2021-10-19 14:16 | RAD REPORT ---
EXAM DESCRIPTION: RAD - Chest Single View - 10/19/2021 5:02 am CLINICAL HISTORY: 1 years Male, PALPITATIONS COMPARISON: None FINDINGS: No focal lung consolidation. No pleural effusion. No pneumothorax. Cardiac and mediastinal silhouette is unremarkable. No acute osseous abnormality. Soft tissues are unremarkable. IMPRESSION: No acute findings. No focal lung consolidation. Electronically signed by: Francisco Abad DO 10/19/2021 5:12 AM CDT Due to temporary technical issues with the PACS/Fluency reporting system, reports are being signed by the in house radiologist without review as a courtesy to ensure prompt reporting. The interpreting r adiologist is fully responsible for the content of the report.
--- NOTE | 2021-10-19 14:18 | RAD REPORT ---
EXAM DESCRIPTION: CT - Chest For Pe Angio - 10/19/2021 6:45 am CLINICAL HISTORY: 41 years, Male, palpitations COMPARISON: None. TECHNIQUE: Axial images through the chest were performed after the administration of intravenous con trast using a pulmonary embolus protocol. MIPS were performed. This exam was performed according to our departmental dose-optimization program which includes use of Automated Exposure Control, adjustm ent of the mA and/or kV according to patient size and/or use of iterative reconstruction technique. FINDINGS: No pulmonary embolus is identified. Thoracic aorta is unremarkable. Cardiac chambers are mildly increased in size.. No coronary calcifications. No pericardial effusion. No pleural effusion. Diffuse groundglass appearance throughout the lungs. No focal areas of consolidation. No pneumothorax. Patent central airway. Soft tissues are unremarkable. No acute osseous findings. No acute abnormality within the visualized upper abdomen. Liver is only partially visualized but appe ars enlarged with diffuse fatty infiltration. IMPRESSION: Negative for pulmonary embolism. Electronically signed by: Francisco Abad DO 10/19/2021 6:06 AM CDT Due to temporary technical issues with the PACS/Fluency reporting system, reports are being signed by the in house radiologist without review as a courtesy to ensure prompt reporting. The interpreting r adiologist is fully responsible for the content of the report.
== END 2021-10-19 09:40 | disposition home or self-care (01) ==
LOC: ER 02:39
DX: R00.2 Palpitations (principal); F10.929 Alcohol use, unspecified with intoxication, unspecified; I10 Essential (primary) hypertension; I48.91 Unspecified atrial fibrillation; F17.210 Nicotine dependence, cigarettes, uncomplicated; Z88.5 Allergy status to narcotic agent
CPT/HCPCS: 93005; 85025; 80048; 36415; 80320; 83735; 80329 ×2; 85610; 85379; 80076; 85730; 84443; 81003; 84484; 83880; 80307; 71275; 71045; Q9967; J2550; J3411; J7030 ×2; J3490; 96361; 96365; 96366; 96375; 99284

== ENCOUNTER 2023-01-08 03:20 | Emergency (ER) | payer SELFPAY ==
--- OUTSIDE RECORDS SUMMARY | 2023-01-08 03:25 | XMS REPORT | Continuity of Care Document ---
:1980 Author Organization [facility] t Address [address] [facility] [address] [facility] [address] [place] [address] Care Team Providers Name Role Phone RICKY STILES JR Primary Care Physician Unavailable Gopal Lopes Attending Clinician Unavailable CARRIE RIVAS Attending Clinician Unavailable HOLA GOODSON Attending Clinician Unavailable Hola Goodsno NP Attending Clinician OSEAS MICHELLE Attending Clinician Unavailable Oseas Michelle MD Attending Clinician Doctor Unassigned, [place] Attending Clinician Unavailable Rosas Chandra MD Attending Clinician Silvino Zuluaga Attending Clinician SILVINO GALVAN Attending Clinician Unavailable Dyan Lopez DO Attending Clinician DYAN LOPEZ Attending Clinician Unavailable Chelo Schmitz Attending Clinician Segundo Shaffer Attending Clinician SEGUNDO MOREIRA Attending Clinician Unavailable Gopal Lopes Admitting Clinician Unavailable HOLA GOODSON Admitting Clinician Unavailable OSEAS MICHELLE Admitting Clinician Unavailable SEGUNDO MOREIRA Admitting Clinician Unavailable Payers Payer Name Policy Type Policy Number Effective Date Expiration Date S kimi [employer] [place] - [id number] 2019 00:00:00 OUT OF STATE Problems Condition Condition Condition Status Onset Resolution Last Treating Co mments Source Name Details Category Date Date Treatment Clinician Date No known No known Disease Unive rs active active ity of problems problems [facility] Allergies, Adverse Reactions, Alerts Allergy Allergy Status Severity Reaction(s) Onset Inactive Treating Comm ents Source Name Type Date Date Clinician ketorola DA Active U UNKNOWN [facility] [place] 00:00: Health 00 are [place] Ketorola Propensi Active Anxiety Unive rs c ty to 6-30 ity of Trometha adverse 00:00: [place] mine reaction 00 Medical s Branch KETOROLA DRUG Active Anxiety Univers C INGREDI 6-30 ity of TROMETHA 00:00: [place] MINE 00 Medical Branch Social History Social Habit Start Date Stop Date Quantity Comments Source History of Chews Tobacco University of tobacco use [place] [facility] [place] History SDOH University o f [facility] [place] History SDOH University o f Alcohol Std [place] [facility] Drinks Branch History SDLA University o f Alcohol Binge [place] [facility] al Branch Exposure to 2022-10-04 2022-10-14 Not sure University of SARS-CoV-2 00:00:00 20:10:00 [facility] (event) Branch Alcohol intake 2022-03-27 2022-03-27 Current drinker of Un iversity of 00:00:00 00:00:00 alcohol (finding) [facility] [place] Tobacco use and 2021-01-09 2021-01-09 User of smokeless Un iversity of exposure 00:00:00 00:00:00 tobacco [facility] Alcohol Comment 2021-01-09 2021-01-09 Occasionally Univers ity of 00:00:00 00:00:00 [facility] Sex Assigned At [birth year] [facility] 00:00:00 00:00:00 Smoking Status Start Date Stop Date Source Tobacco [facility] Smokes tobacco daily 2021-01-09 00:00:00 Univers ity of [facility] Medications Ordered Filled Start Stop Current Ordering Indication Dosage Frequency Signature Comments Components Source Medication Medication Date Date Medication? Clinician (SIG) Name Name dexamethaso No 10mg 10 mg, Uni vers ne 10-15 Intramuscu ity of (DECADRON 02:45: 03:25 lar, ONCE, [place] PHOSPHATE) 00 :00 1 dose, On Med ical injection [facility] 10/14/22 Bran ch 10 mg at 2145, Routine HYDROcodone 2022- No 1{tbl} 1 tablet, Univers -acetaminop 10-15 Oral, ity of hen (NORCO) 02:30: 03:19 ONCE, 1 [place] 10-325 mg 00 :00 dose, On Medica l tablet 1 [facility] 10/14/22 Branc h tablet at 2130, Routine naproxen No 500mg 500 mg, Univ ers (NAPROSYN) 10-15 Oral, ity of tablet 500 02:30: 03:20 ONCE, 1 [place] mg 00 :00 dose, On Medical [facility] 10/14/22 Branch at 2130, Routine lisinopril No 5mg Take 5 mg U nivers 2.5 mg 10-14-04 by mouth ity of tablet 21:57: 00:00 daily. [place] 27 :00 Medical Branch aspirin 2021-06 Yes 324mg 324 mg, Univer s chewable 0-15 Oral, ity of tablet 324 14:00: DAILY, [place] mg 00 First dose Medical on Sat Branch 03/27/22 at 0900, Until Discontinu ed, Routine FENTanyl PF 2021-06 No 50ug 50 mcg, Un wilver (SUBLIMAZE 0-15 10-15 Slow IV ity o f (PF)) 09:30: 08:39 Push, [place] injection 00 :00 ONCE, 1 Medical 50 mcg dose, On Branch 03/27/22 at 0430, Routine ondansetron 2021-06 No 4mg 4 mg, Slow Univers (ZOFRAN 0-15 10-15 IV Push, ity of (PF)) 08:30: 08:37 ONCE, 1 [place] injection 4 00 :00 dose, On Medi seb mg Sat Branch 03/27/22 at 0330, ISMAEL traMADoL Yes 4647 50mg Take 1 Univers (ULTRAM) 50 9-26 tablet by ity of mg tablet 00:00: mouth [place] 00 every 6 Medical (six) Branch hours as needed for Pain (scale 7-10). Indication s: acute pain traMADoL 2020-0 Yes 4647 50mg Take 1 Univers (ULTRAM) 50 9-26 tablet by ity of mg tablet 00:00: mouth [place] 00 every 6 Medical (six) Branch hours as needed for Pain (scale 7-10). Indication s: acute pain traMADoL 2022- No 4647 50mg Take 1 Univer s (ULTRAM) 50 9-26 05-04 tablet by it y of mg tablet 00:00: 00:00 mouth [place] 00 :00 every 6 Medical (six) Branch hours as needed for Pain (scale 7-10). Indication s: acute pain lisinopril 0 Yes 5mg Take 5 mg Un wilver 2.5 mg 7-30 by mouth ity of tablet 10:23: daily. [address] lisinopril 2020-0 Yes 5mg Take 5 mg Un wilver 2.5 mg 7-30 by mouth ity of tablet 10:23: daily. [address] lisinopril 2020-0 Yes 5mg Take 5 mg Un wilver 2.5 mg 7-30 by mouth ity of tablet 10:23: daily. [address] methylPREDN 2020-0 Yes [id number] 84mg Take 21 Univers ISolone 7-30 tablets by ity of (MEDROL, 00:00: mouth [place] ELLA,) 4 mg 00 SEE-INSTRU Med ical tablets CTIONS. Branch follow package directions methylPREDN 1-0 Yes [id number] 84mg Take 21 Univers ISolone 7-30 tablets by ity of (MEDROL, 00:00: mouth [place] ELLA,) 4 mg 00 SEE-INSTRU Med ical tablets CTIONS. Branch follow package directions methylPREDN 2021-0 Yes [id number] 84mg Take 21 Univers ISolone 7-30 tablets by ity of (MEDROL, 00:00: mouth [place] ELLA,) 4 mg 00 SEE-INSTRU Med ical tablets CTIONS. Branch follow package directions methylPREDN 1-0 3- No [id number] 84mg Take 21 Univers ISolone 7-30 05-04 tablets by ity o f (MEDROL, 00:00: 00:00 mouth [place] ELLA,) 4 mg 00 :00 SEE-INSTRU Med ical tablets CTIONS. Branch follow package directions omeprazole 0 Yes 40mg Take 40 mg U nivers 40 mg 7-17 by mouth ity of capsule 00:00: daily. Medical Branch amLODIPine 2020-0 Yes 1{tbl} Take 1 Uni vers 5 mg tablet 7-17 tablet by ity of 00:00: mouth [place] 00 daily. Medical Branch omeprazole 2020-0 Yes 40mg Take 40 mg U nivers 40 mg 7-17 by mouth ity of capsule 00:00: daily. Medical Branch amLODIPine 0 Yes 1{tbl} Take 1 Uni vers 5 mg tablet 7-17 tablet by ity of 00:00: mouth [place] 00 daily. Medical Branch omeprazole 0 Yes 40mg Take 40 mg U nivers 40 mg 7-17 by mouth ity of capsule 00:00: daily. Medical Branch amLODIPine 0 Yes 1{tbl} Take 1 Uni vers 5 mg tablet 7-17 tablet by ity of 00:00: mouth [place] 00 daily. Medical Branch omeprazole 0 2022- No 40mg Take 40 mg Univers 40 mg 7-17 05-04 by mouth ity of capsule 00:00: 00:00 daily. [place] 00 :00 Medical Branch amLODIPine 2020-0 3- No 1{tbl} Take 1 Un wilver 5 mg tablet 7-17 05-04 tablet by it y of 00:00: 00:00 mouth [place] 00 :00 daily. Medical Branch ondansetron 2019-0 Yes [id number] 4mg Take 1 Univers (ZOFRAN 8-31 tablet by ity of ODT) 4 mg 00:00: mouth [place] disintegrat 00 every 8 Medic al ing tablet (eight) Branch hours as needed for Nausea and Vomiting (N/V). ondansetron 2020-0 Yes [id number] 4mg Take 1 Univers (ZOFRAN 8-31 tablet by ity of ODT) 4 mg 00:00: mouth [place] disintegrat 00 every 8 Medic al ing tablet (eight) Branch hours as needed for Nausea and Vomiting (N/V). ondansetron 2020-0 Yes [id number] 4mg Take 1 Univers (ZOFRAN 8-31 tablet by ity of ODT) 4 mg 00:00: mouth [place] disintegrat 00 every 8 Medic al ing tablet (eight) Branch hours as needed for Nausea and Vomiting (N/V). ondansetron 2019-0 3- No [id number] 4mg Take 1 Univers (ZOFRAN 8-31 05-04 tablet by ity of ODT) 4 mg 00:00: 00:00 mouth [place] disintegrat 00 :00 every 8 Medic al ing tablet (eight) Branch hours as needed for Nausea and Vomiting (N/V). acetaminoph 2020-0 Yes [id number] 1{tbl} Take 1 Univers en-codeine 6- [id number] tablet by it y of (TYLENOL-CO 00:00: mouth [place] DEINE #3) 00 every 6 Medical 300-30 mg (six) Branch tablet hours as needed for Pain (scale 7-10). ibuprofen 2020-0 Yes [id number] 800mg Take 1 Univers 800 mg 6- 927979 tablet by ity of tablet 00:00: mouth [place] 00 every 8 Medical (eight) Branch hours as needed for Pain (scale 4-6). acetaminoph 2020-0 Yes [id number] 1{tbl} Take 1 Univers en-codeine 6- [id number] tablet by it y of (TYLENOL-CO 00:00: mouth [place] DEINE #3) 00 every 6 Medical 300-30 mg (six) Branch tablet hours as needed for Pain (scale 7-10). ibuprofen 2020-0 Yes [id number] 800mg Take 1 Univers 800 mg 6- 224920 tablet by ity of tablet 00:00: mouth [place] 00 every 8 Medical (eight) Branch hours as needed for Pain (scale 4-6). acetaminoph 2020-0 Yes [id number] 1{tbl} Take 1 Univers en-codeine 6-09 [id number] tablet by it y of (TYLENOL-CO 00:00: mouth [place] DEINE #3) 00 every 6 Medical 300-30 mg (six) Branch tablet hours as needed for Pain (scale 7-10). ibuprofen 2020-0 Yes [id number] 800mg Take 1 Univers 800 mg 6-09 [id number] tablet by ity of tablet 00:00: mouth [place] 00 every 8 Medical (eight) Branch hours as needed for Pain (scale 4-6). acetaminoph 2022- No [id number] 1{tbl} Take 1 Univers en-codeine 11-19 [id number] tablet by i ty of (TYLENOL-CO 00:00: 00:00 [place] DEINE #3) 00 :00 every 6 Medical 300-30 mg (six) Branch tablet hours as needed for Pain (scale 7-10). ibuprofen 2022- No [id number] 800mg Take 1 Univers 800 mg 11-19 [id number] tablet by ity o f tablet 00:00: 00:00 mouth [place] 00 :00 every 8 Medical (eight) Branch hours as needed for Pain (scale 4-6). traMADOL 50 Yes 50mg Take 1 Univ ers mg tablet 6-24 tablet by ity o f 00:00: mouth [place] 00 every 6 Medical (six) Branch hours as needed (pain). traMADOL 50 Yes 50mg Take 1 Univ ers mg tablet 6-24 tablet by ity o f 00:00: mouth [place] 00 every 6 Medical (six) Branch hours as needed (pain). traMADOL 50 Yes 50mg Take 1 Univ ers mg tablet 6-24 tablet by ity o f 00:00: mouth [place] 00 every 6 Medical (six) Branch hours as needed (pain). traMADOL 50 2022- No 50mg Take 1 Uni vers mg tablet 12-04 tablet by ity of 00:00: 00:00 mouth [place] 00 :00 every 6 Medical (six) Branch hours as needed (pain). Immunizations Ordered Filled Immunization Date Status Comments [facility] e Immunization Name Name TDAP (ADACEL) 2019-11-20 Completed University of VACCINE 00:00:00 [facility] TDAP (ADACEL) 2019-11-20 Completed University of VACCINE 00:00:00 [facility] TDAP (ADACEL) 2019-11-20 Completed University of VACCINE 00:00:00 [facility] TDAP (ADACEL) 2019-11-20 Completed [place] of VACCINE 00:00:00 [facility] Vital Signs Vital Name Observation Time Observation Value Comments Source Systolic blood 2022-10-15 03:49:57 144 mm[Hg] Univer sity of pressure [place] [facility] Diastolic blood 2022-10-15 03:49:57 78 mm[Hg] Unive rsity of pressure [place] [facility] Heart rate 2022-10-15 01:05:00 71 /min Universi ty of [place] [facility] Body temperature 2022-10-15 01:05:00 37.28 Digna Univ ersity of [place] [facility] Respiratory rate 2022-10-15 01:05:00 15 /min Univ ersity of [place] [facility] Body height 2022-10-15 01:05:00 177.8 cm Universi ty of [place] [facility] Body weight 2022-10-15 01:05:00 93.895 kg Universi ty of [place] [facility] BMI 2022-10-15 01:05:00 29.70 kg/m2 Universi ty of [place] [facility] Oxygen saturation in 2022-10-15 01:05:00 95 /min University of Arterial blood by [facility] Pulse oximetry Branch Heart rate 2022-03-27 11:30:00 69 /min Universi ty of [place] [facility] Respiratory rate 2022-03-27 11:30:00 13 /min Univ ersity of [place] [facility] Oxygen saturation in 2022-03-27 11:30:00 94 /min University of Arterial blood by [facility] Pulse oximetry Branch Systolic blood 2022-03-27 11:00:00 95 mm[Hg] Univer sity of pressure [place] [facility] Diastolic blood 2022-03-27 11:00:00 57 mm[Hg] Unive rsity of pressure [place] [facility] Body temperature 2022-03-27 08:17:00 35.83 Digna Univ ersity of [place] [facility] Body height 2022-03-27 08:17:00 177.8 cm Universi ty of [place] [facility] Body weight 2022-03-27 08:17:00 93.895 kg Universi ty [facility] [place] [facility] BMI 2022-03-27 08:17:00 29.70 kg/m2 Universi ty [facility] [place] [facility] Systolic blood 2021-01-09 15:20:00 113 mm[Hg] Univer sity of pressure [place] [facility] Diastolic blood 2021-01-09 15:20:00 73 mm[Hg] Unive rsity of pressure [place] [facility] Heart rate 2021-01-09 15:20:00 78 /min Universi ty of [place] [facility] Procedures Procedure Date / Time Performed Performing Clinician [facility] e XR HEEL 2+ VW RIGHT 2022-10-15 02:05:44 Hola Goodson [facility] CONSENT/REFUSAL FOR 2022-10-15 01:05:31 [facility] Name [facility] TREATMENT EKG-12 LEAD 2022-03-27 11:35:36 Oseas Michelle [facility] LIPASE 2022-03-27 09:57:00 Oseas Michelle [facility] TROPONIN I 2022-03-27 09:57:00 Oseas Micehlle [facility] XR CHEST 1 VW 2022-03-27 08:58:00 Oseas Michelle [facility] TROPONIN I 2022-03-27 08:25:00 Oseas Michelle [facility] COMP. METABOLIC PANEL 2022-03-27 08:25:00 Oseas Michelle [facility] ([id number]) [facility] CBC WITH DIFF 2022-03-27 08:25:00 Oseas Michelle [facility] URINALYSIS 2022-03-27 08:25:00 Oseas Michelle [facility] CONSENT/REFUSAL FOR 2022-03-27 07:58:19 Doctor Unassigned, [facility] AND Name [facility] TREATMENT Encounters Start End Encounter Admission Attending Care Care Encounter Source Date/Time Date/Time Type Type Clinicians Facility Department ID 2022-10-18 Outpatient [facility] [id number] [place] 15:54:41 [id number] [facility] 2022-01-09 Inpatient EM Marianne, [facility] [id number] [facility] 05:53:00 [id number] [facility] 2021-07-06 Outpatient ROB [facility] [id number] [place] 13:49:19 [facility] 2021-04-14 Emergency [facility] [id number] Univers [facility] 2022-10-14 2022-10-14 Emergency X HAMZAH NJGARCÍA ERT [id number] Univers 20:15:00 22:51:00 HOLA ity of [facility] 2022-10-14 2022-10-14 Emergency [facility] [id number] Univers 20:15:00 22:51:00 Hola CARD 350.1.13.10 ity of [facility] 4.2.7.2.686 [facility] [id number] [place] [address] Branch 2022-03-27 2022-03-27 Emergency X [facility] ERT [id number] Univers 03:04:00 06:50:00 OSEAS ity [facility] 2022-03-27 2022-03-27 Emergency [facility] [id number] Univers 03:04:00 06:50:00 [facility] KYAW 350.1.13.10 ity of HORTENSE 4.2.7.2.686 [facility] [id number] [place] [address] [place] 2022-03-27 2022-03-27 Orders Doctor EVANGELISTA [id number] Univers 00:00:00 00:00:00 Only Unassigned, THERESA 350.1.13.10 ity of [place] [facility] 4.2.7.2.686 [facility] [id number] [place] [address] Branch 2022-01-10 2022-01-11 Inpatient EM Gopal Lopes [facility] [id number] [facility] 11:39:00 14:41:00 [id number] [facility] 2022-01-10 2022-01-11 Inpatient EM Gopal Lopes [facility] [id number] [facility] 11:39:00 14:41:00 89 [facility] 2021-07-24 2021-07-24 Telephone VARINDER Rivas 6400 [id number] [place] 00:00:00 00:00:[address] 350.1.13.58 [facility] 9.2.7.2.686 [id number] 1 2021-03-08 2021-03-08 Emergency [facility] [id number] Univers 01:09:00 03:04:00 Oseas [place] 350.1.13.10 ity of [place] 4.2.7.2.686 [facility] [id number] [address] 2021-01-09 2021-01-09 [facility] [id number] Univers 10:29:25 23:59:00 Encounter Rosas [place] [facility] 350.1.13.10 ity of Surgical 4.2.7.2.686 [place] as Specialti [id number] Nh dical es 809 [facility] 2021-01-09 2021-01-09 Office Rosas Chandra [facility] 1.2.840. [id number] Univers 10:16:46 10:52:49 Visit Silvino Galvan [facility] 350.1.13.10 ity of SURGICAL 4.2.7.2.686 [place] as SPECIALTI [id number] Nh dical ES 198 [facility] 2021-01-09 2021-01-09 Outpatient [facility] [id number] Univers 10:15:00 10:52:49 SILVINO ity [facility] 2020-11-22 2020-11-23 Emergency [facility] [id number] Univers 22:49:00 06:18:00 Dyan Card 350.1.13.10 ity of [place] 4.2.7.2.686 [facility] [id number] [address] 2020-11-22 2020-11-22 [facility] [id number] Univers 22:49:00 22:49:00 DYAN ity [facility] 2020-11-18 2020-11-18 Emergency [facility] [id number] Univers 18:09:00 18:21:00 Chelo Card 350.1.13.10 i ty of [place] 4.2.7.2.686 [facility] [id number] [address] 2020-11-04 2020-11-04 Emergency X [facility] ERT [id number] Univers 22:01:00 23:47:00 [facility] 2020-11-04 2020-11-04 Emergency [facility] [id number] Univers 22:01:00 23:47:00 [place] 350.1.13.10 i ty of [place] 4.2.7.2.686 [facility] [id number] [address] 2020-02-11 2020-02-11 Emergency [facility], [facility] [id number] Univers 00:51:00 02:35:00 Segundo [place] 350.1.13.10 i ty of [place] 4.2.7.2.686 [facility] [id number] [address] 2020-02-11 2020-02-11 Emergency X [facility] ERT [id number] Univers 00:51:00 00:51:00 [facility] 2019-11-20 2019-11-20 Emergency X [facility], [facility] ERT [id number] Univers 19:36:41 22:05:00 [facility] Results Test Description Test Time Test Comments Results Result Comments Source LIPASE 2022-03-27 11:27:19 Test Item Value Reference Range Interpretation Comme nts LIPASE (test code = 5711400011) 36 U/L 0-220 Lab Interpretation (test code = 48611-4) [id number] 11:06:12 Test Item Value Reference Interpretation Comments Range TROPONIN I (test 0.003 ng/mL See_Comment [Automated code = 0534981096) message] The system which generated this result transmitted reference range : <=0.034. The reference range was not used to interpret this result as normal/abnormal . GUY (test code = Reference (Normal) GUY) Range (defined by the 99th percentile reference limit): <= 0.034 ng/mL Note: Cardiac troponin begins to rise 3-4 hours after the onset of ischemia. Repeat in 4-6 hours if the sample was drawn within 3-4 hours of the onset of the symptom and found normal. Diagnosis of myocardial injury is made with acute changes in cTn concentrations with at least one serial sample above the 99th percentile upper reference limit (URL), taken together with the patient's clinical presentation. Biotin has been reported to cause a negative bias, interpret results relative to patient's use of biotin. Lab Interpretation Normal (test code = 09087-2) [facility] [id number] 09:12:39 Test Item Value Reference Interpretation Comments Range TROPONIN I (test 0.005 ng/mL See_Comment [Automated code = 1113745564) message] The system which generated this result transmitted reference range : <=0.034. The reference range was not used to interpret this result as normal/abnormal . GUY (test code = Reference (Normal) GUY) Range (defined by the 99th percentile reference limit): <= 0.034 ng/mL Note: Cardiac troponin begins to rise 3-4 hours after the onset of ischemia. Repeat in 4-6 hours if the sample was drawn within 3-4 hours of the onset of the symptom and found normal. Diagnosis of myocardial injury is made with acute changes in cTn concentrations with at least one serial sample above the 99th percentile upper reference limit (URL), taken together with the patient's clinical presentation. Biotin has been reported to cause a negative bias, interpret results relative to patient's use of biotin. Lab Interpretation Normal (test code = 65513-4) [facility] METABOLIC PANEL ([id number])2022-03-27 09:01:17 Test Item Value Reference Range Interpretation Comments NA (test code = 147 mmol/L 135-145 H 7960218025) K (test code = 3.9 mmol/L 3.5-5 8002886269) CL (test code = 107 mmol/L 98-108 2087382316) CO2 TOTAL (test code = 24 mmol/L 23-31 8144085586) AGAP (test code = 2-16 3185952381) BUN (test code = 7 mg/dL 7-23 7077896357) GLUCOSE (test code = 105 mg/dL 70-110 1956582197) CREATININE (test code = 0.92 mg/dL 0.6-1.25 7189461158) TOTAL BILI (test code = 0.6 mg/dL 0.1-1.4 8340369620) CALCIUM (test code = 10.4 mg/dL 8.6-10.6 1945088100) T PROTEIN (test code = 8.1 g/dL 6.3-8.2 0922946508) ALBUMIN (test code = 5.1 g/dL 3.5-5 H 1651439600) ALK PHOS (test code = 74 U/L 34-122 0889910906) ALTv (test code = 50 U/L 5-50 1742-6) AST(SGOT) (test code = 33 U/L 13-40 0214755002) eGFR (test code = mL/min/1.73m2 7052017983) GUY (test code = GUY) Association of Glomerular Filtration Rate (GFR) and Staging of Kidney Disease* + --+ --+ ------+| GFR (mL/min/1.73 m2) ?| With Kidney Damage ?| ?Without Kidney Damage+ --------+ --------+ +| ?>90 ?| ?Stage one ?| ? Normal ?+ ---+ ---+ -------+| ?60-89 ?| ?Stage two ?| ? Decreased GFR ? + --+ --+ ------+| ?30-59 ?| ?Stage three ?| ? Stage three ? + --+ --+ ------+| ?15-29 ?| ?Stage four ? | ? Stage four ?+ ---+ ---+ -------+| ?<15 (or dialysis) ? ?| ?Stage five ? | ? Stage five ?+ ---+ ---+ -------+ *Each stage assumes the associated GFR level has been in effect for at least three months. ?Stages 1 to 5, with or without kidney disease, indicate chronic kidney disease. Notes: Determination of stages one and two (with eGFR >59mL/min/1.73 m2) requires estimation of kidney damage for at least three months as defined by structural or functional abnormalities of the kidney, manifested by either:Pathological abnormalities or Markers of kidney damage (including abnormalities in the composition of the blood or urine or abnormalities in imaging tests). Lab Interpretation Abnormal (test code = 29231-1) [facility] WITH [id number] 08:50:16 Test Item Value Reference Range Interpretation Comments WBC (test code = See_Comment [Automated 6690-2) message] The sy stem which generated this result transmitted reference range : 4.20 - 10.70 10*3/?L. The reference range was not used to interpret this result as normal/abnormal . RBC (test code = See_Comment [Automated 789-8) message] The sy stem which generated this result transmitted reference range : 4.26 - 5.52 10*6/?L. The reference range was not used to interpret this result as normal/abnormal . HGB (test code = 16.2 g/dL 12.2-16.4 718-7) HCT (test code = 45.8 % 38.4-49.3 4544-3) MCV (test code = 86.9 fL 81.7-95.6 787-2) MCH (test code = 30.7 pg 26.1-32.7 785-6) MCHC (test code = 35.4 g/dL 31.2-35 H 786-4) RDW-SD (test code = 39.8 fL 38.5-51.6 05385-9) RDW-CV (test code = 12.6 % 12.1-15.4 788-0) PLT (test code = See_Comment [Automated 777-3) message] The sy stem which generated this result transmitted reference range : 150 - 328 10*3/ ?L. The reference r shaheed was not used to interpret this result as normal/abnormal . MPV (test code = 10.0 fL 9.8-13 58963-9) NRBC/100 WBC (test See_Comment [Automat ed code = 1007448389) message] The system which generated this result transmitted reference range : 0.0 - 10.0 /100 WBCs. The refer ence range was not u sed to interpret th is result as normal/abnormal . NRBC x10^3 (test code See_Comment [Auto mated = 1488700961) message] The s ystem which generated this result transmitted reference range : 10*3/?L. The reference range was not used to interpret this result as normal/abnormal . GRAN MAT (NEUT) % 53.1 % (test code = 770-8) IMM GRAN % (test code 0.40 % = 6201907341) LYMPH % (test code = 40.0 % 736-9) MONO % (test code = 5.0 % 5905-5) EOS % (test code = 1.0 % 713-8) BASO % (test code = 0.5 % 706-2) GRAN MAT x10^3(ANC) 4.06 10*3/uL 1.99-6.95 (test code = 7826534493) IMM GRAN x10^3 (test 0.03 10*3/uL 0-0.06 code = 5758700615) LYMPH x10^3 (test code 3.06 10*3/uL 1.09-3.23 = 731-0) MONO x10^3 (test code 0.38 10*3/uL 0.36-1.02 = 742-7) EOS x10^3 (test code = 0.08 10*3/uL 0.06-0.53 711-2) BASO x10^3 (test code 0.04 10*3/uL 0.01-0.09 = 704-7) Lab Interpretation Abnormal (test code = 52462-3) [facility] METABOLIC [id number] 09:02:00 Test Item Value Reference Range Interpretation Comments SODIUM (test code 144 mmol/L 135-145 N = NA) POTASSIUM (test 4.0 mmol/L 3.5-5.1 N code = K) CHLORIDE (test 110 mmol/L 98-107 H code = CL) CARBON DIOXIDE 30 mmol/L 21-32 N (test code = CO2) ANION GAP (test 8.0 2.0-16.0 N code = GAP) GLUCOSE (test code 123 mg/dL 65-99 H = GLU) BLOOD UREA 11 mg/dL 4-23 N NITROGEN (test code = BUN) GLOMERULAR >=60 max The estimated FILTRATION RATE estimate ml/min glomerula r (test code = GFR) filtration rate is computed usingpatient ra ce, age (>18), sex, and serum creatinin e. If anyof the neede d data elements a re missing the Laboratory urbano ot compute an estimation of t he glomerular filtration rate . CREATININE (test 1.1 mg/dL 0.6-1.5 N code = CREAT) BUN/CREATININE 10.0 12.0-20.0 L RATIO (test code = BUN/CREA) CALCIUM (test code 8.5 mg/dL 8.5-10.1 N = CA) CBC W/AUTO [id number] 08:37:00 Test Item Value Reference Range Interpretation Comments WHITE BLOOD CELL (test code = 4.3 10 3/uL 4.5-11.0 L WBC) RED BLOOD CELL (test code = 4.00 10 6/uL 4.30-5.90 L RBC) HEMOGLOBIN (test code = HGB) 12.1 g/dL 14.0-18.0 L HEMATOCRIT (test code = HCT) 36.1 % 40.0-55.0 L MEAN CELL VOLUME (test code = 90 fL 81-102 N MCV) MEAN CELL HGB (test code = 30.3 pg 26.0-34.0 N MCH) MEAN CELL HGB CONCENTRATION 33.5 g/dL 31.0-37.0 N (test code = MCHC) RED CELL DISTRIBUTION WIDTH 12.4 % 11.6-14.4 N (test code = RDW) PLATELET COUNT (test code = 191 10 3/uL 150-400 N PLT) MEAN PLATELET VOLUME (test 10.1 fL 9.0-12.6 N code = MPV) NEUTROPHIL % (test code = NT%) 53.6 % 33.0-76.0 N IMMATURE GRANULOCYTE % (test 0.2 % 0.0-1.0 N code = IG%) LYMPHOCYTE % (test code = LY%) 33.0 % 14.0-56.4 N MONOCYTE % (test code = MO%) 10.7 % 0.0-12.9 N EOSINOPHIL % (test code = EO%) 2.3 % 0.0-7.0 N BASOPHIL % (test code = BA%) 0.2 % 0-2.0 N NUCLEATED RBC % (test code = 0.0 % 0-0.2 N NRBC%) NEUTROPHIL # (test code = NT#) 2.30 10 3/uL 1.5-7.0 N IMMATURE GRANULOCYTE # (test 0.010 x10 3/uL 0.000-0.100 N code = IG#) LYMPHOCYTE # (test code = LY#) 1.42 10 3/uL 1.50-4.00 L MONOCYTE # (test code = MO#) 0.46 10 3/uL 0.20-0.80 N EOSINOPHIL # (test code = EO#) 0.10 10 3/uL 0.0-0.5 N BASOPHIL # (test code = BA#) 0.01 10 3/uL 0.0-0.1 N NUCLEATED RBC # (test code = 0.000 10 3/uL 0.000-0.012 N NRBC#) BASIC METABOLIC [id number] 07:29:00 Test Item Value Reference Range Interpretation Comments SODIUM (test code 139 mmol/L 135-145 N = NA) POTASSIUM (test 3.7 mmol/L 3.5-5.1 N code = K) CHLORIDE (test 106 mmol/L 98-107 N code = CL) CARBON DIOXIDE 27 mmol/L 21-32 N (test code = CO2) ANION GAP (test 9.7 2.0-16.0 N code = GAP) GLUCOSE (test code 81 mg/dL 65-99 N = GLU) BLOOD UREA 10 mg/dL 4-23 N NITROGEN (test code = BUN) GLOMERULAR >=60 max The estimated FILTRATION RATE estimate ml/min glomerula r (test code = GFR) filtration rate is computed usingpatient ra ce, age (>18), sex, and serum creatinin e. If anyof the neede d data elements a re missing the Laboratory urbano ot compute an estimation of t he glomerular filtration rate . CREATININE (test 1.0 mg/dL 0.6-1.5 N code = CREAT) BUN/CREATININE 10.0 12.0-20.0 L RATIO (test code = BUN/CREA) CALCIUM (test code 8.7 mg/dL 8.5-10.1 N = CA) [id number] 07:29:00 Test Item Value Reference Range Interpretation Comments PHOSPHOROUS (test code = PHOS) 3.5 mg/dL 2.5-4.9 N [id number] 07:29:00 Test Item Value Reference Range Interpretation Comments MAGNESIUM (test code = MAG) 2.1 mg/dL 1.8-2.4 N CBC W/AUTO [id number] 07:10:00 Test Item Value Reference Range Interpretation Comments WHITE BLOOD CELL (test code = 4.3 10 3/uL 4.5-11.0 L WBC) RED BLOOD CELL (test code = 4.19 10 6/uL 4.30-5.90 L RBC) HEMOGLOBIN (test code = HGB) 12.7 g/dL 14.0-18.0 L HEMATOCRIT (test code = HCT) 37.6 % 40.0-55.0 L MEAN CELL VOLUME (test code = 90 fL 81-102 N MCV) MEAN CELL HGB (test code = 30.3 pg 26.0-34.0 N MCH) MEAN CELL HGB CONCENTRATION 33.8 g/dL 31.0-37.0 N (test code = MCHC) RED CELL DISTRIBUTION WIDTH 12.6 % 11.6-14.4 N (test code = RDW) PLATELET COUNT (test code = 163 10 3/uL 150-400 N PLT) MEAN PLATELET VOLUME (test 9.9 fL 9.0-12.6 N code = MPV) NEUTROPHIL % (test code = NT%) 55.7 % 33.0-76.0 N IMMATURE GRANULOCYTE % (test 0.2 % 0.0-1.0 N code = IG%) LYMPHOCYTE % (test code = LY%) 29.3 % 14.0-56.4 N MONOCYTE % (test code = MO%) 11.7 % 0.0-12.9 N EOSINOPHIL % (test code = EO%) 2.6 % 0.0-7.0 N BASOPHIL % (test code = BA%) 0.5 % 0-2.0 N NUCLEATED RBC % (test code = 0.0 % 0-0.2 N NRBC%) NEUTROPHIL # (test code = NT#) 2.38 10 3/uL 1.5-7.0 N IMMATURE GRANULOCYTE # (test 0.010 x10 3/uL 0.000-0.100 N code = IG#) LYMPHOCYTE # (test code = LY#) 1.25 10 3/uL 1.50-4.00 L MONOCYTE # (test code = MO#) 0.50 10 3/uL 0.20-0.80 N EOSINOPHIL # (test code = EO#) 0.11 10 3/uL 0.0-0.5 N BASOPHIL # (test code = BA#) 0.02 10 3/uL 0.0-0.1 N NUCLEATED RBC # (test code = 0.000 10 3/uL 0.000-0.012 N NRBC#) - CT ABD PELVIS [id number] 20:21:00 [facility] : 1980 Sex: MPatient Name: MAURICIO FALL Unit No: [id number] EXAMS: CPT CODE: [id number] CT ABD PELVIS W/CONT 87875 EXAM: - CT ABD PELVIS W/CONT HISTORY: Abdominal pain. TECHNIQUE: Axial tomograms through the abdomen andpelvis were obtained after intravenous contrast. Coronal and sagittal reformatted images are provided. This exam was performed according to our departmental dose-optimization program, which includes automated exposure control, adjustment of the mA and/or kV according to patient size and/or use of iterative reconstruction technique. COMPARISON: None available time of interpretation. FINDINGS: The visualized lung bases are clear. There is fatty infiltration of the liver. Status post cholecystectomy. The spleen, pancreas, adrenal glands and kidneys demonstrate no significant abnormalities. The bowel is not distended. The appendix is not identified. There is thickening of the wall and inflammation of the proximal colon extending from the cecum to the mid transverse colon. There is no pneumatosis in the wall. There is no adenopathy or free fluid. There is no free air or fluid collection. Degenerative changes are present in spine. IMPRESSION: Proximal colitis. at 2020 Reported and signed by: Eduardo Candelaria MD CC: Self Referred; Gopal Lopes MD; Deborah HERMAN Technologist: Gerber Mon CTDI: DLP: 799.3 Trscr Dt/Tm: 01/09/2022 (20 21) by:[email or web address] Electronic Signature Date/Time: 01/09/2022 (2020)Orig Print D/T: S: 01/09/2022 (2023) [facility] TIFFANIAlma Delia Deboarh Jimenez [address] : 1980 Age: 41 Sex: [place] [address] Loc: NC.5201 1 Exam Date: 01/09/2022 Status: ADM IN PH: FAX: PAGE 1 Signed Report- US ABDOMEN [id number] 12:26:00 [facility] 1980 Sex: MPatient Name: MAURICIO FALL Unit No: [id number] EXAMS: CPT CODE: [id number] ABDOMEN LTD 78912 GALLBLADDER/LIVER ULTRASOUND TECHNIQUE: Ultrasound of the right upper quadrant was performed. Location code: B2 CLINICAL HISTORY: Right upper quadrant pain. COMPARISON: Not currently available. FINDINGS: Liver is normal in size.Liver echotexture is moderately increased. No discrete liver mass found. Portal vein diameter normal. Normal hepatopetal flow. Gallbladder is surgically absent. Visualized portions of the intra- and extrahepatic biliary tree are of normal caliber with common duct measuring 0.7 cm. No definite choledocholithiasis. Pancreas is partially obscured by bowel gas. Right kidney appears normal in size and echotexture without masses or hydronephrosis. It measures 12.3 x 5.9 x 6.3 cm. IMPRESSION: 1. No acute findings. 2. Moderate hepatic steatosis 3. Surgically absent gallbladder. at 1226 Reported and signed by: Jerod Olguin MD CC: Self Referred; Gopal Lopes MD; Deborah HERMAN Technologist: Kandice Tran Probe: Trscr Dt/Tm:01/09/2022 (1226) by:[email or web address] Electronic Signature Date/Time: 01/09/2022 (1226)Orig Print D/T: S: 01/09/2022 (1229) Name: MAURICIO FALL [facility] [place] Phys: Deborah Brothers [address] : 1980 Age: 41 Sex: [place] [address] Loc: NC.5201 1 Exam Date: 01/09/2022 Status: ADM IN PH: FAX: PAGE 1 Signed ReportLIPID PROFILE (CORONARY RISK)2022-01-09 10:55:00 Test Item Value Reference Range Interpretation Comments TRIGLYCERIDES (test code = TRIG) 110 mg/dL 0-149 N CHOLESTEROL (test code = CHOL) 128 mg/dL 0-200 N CHOLESTEROL/HDL RATIO (test code = 4 1-6 N CHOLHDL) HDL CHOLESTEROL (test code = HDL) 30 mg/dL 40-60 L LIPOPROTEIN LDL (test code = LDLC) 82 mg/dL 0-100 N LIVER FUNCTION [id number] 10:55:00 Test Item Value Reference Range Interpretation Comments TOTAL PROTEIN 6.4 g/dL 6.4-8.2 N (test code = PROT) ALBUMIN (test code 3.1 g/dL 3.4-5.0 L = ALB) GLOBULIN (test 3.3 g/dL 2.3-3.5 N code = GLOB) BILIRUBIN TOTAL 0.4 mg/dL 0.2-1.2 N Use of this assay is not (test code = BILT) recommend ed for patients undergoingtreat ment with Eltrombopag due to the potential for falselyelevated results. BILIRUBIN DIRECT 0.1 mg/dL 0.0-0.3 N (test code = BILD) BILIRUBIN INDIRECT 0.3 mg/dL 0.0-0.8 N (test code = BILIND) SGOT/AST (test 22 U/L 15-37 N code = AST) SGPT/ALT (test 43 U/L 6-50 N code = ALT) ALKALINE 65 U/L 45-117 N PHOSPHATASE (test code = ALKP) [id number] 10:55:00 Test Item Value Reference Range Interpretation Comments PHOSPHOROUS (test code = PHOS) 3.0 mg/dL 2.5-4.9 N [id number] 10:55:00 Test Item Value Reference Range Interpretation Comments LIPASE (test code = LIP) 28 U/L 73-393 L [id number] 10:55:00 Test Item Value Reference Range Interpretation Comments MAGNESIUM (test code = MAG) 1.9 mg/dL 1.8-2.4 N HGBA1C - GLYCOSYLATED [id number] 10:55:00 Test Item Value Reference Range Interpretation Comments GLYCOSYLATED HEMOGLOBIN (HA1C) (test 5.4 % 4.5-5.9 N code = GLYHGB) BASIC METABOLIC [id number] 10:55:00 Test Item Value Reference Range Interpretation Comments SODIUM (test code 139 mmol/L 135-145 N = NA) POTASSIUM (test 3.5 mmol/L 3.5-5.1 N code = K) CHLORIDE (test 106 mmol/L 98-107 N code = CL) CARBON DIOXIDE 26 mmol/L 21-32 N (test code = CO2) ANION GAP (test 10.5 2.0-16.0 N code = GAP) GLUCOSE (test code 90 mg/dL 65-99 N = GLU) BLOOD UREA 11 mg/dL 4-23 N NITROGEN (test code = BUN) GLOMERULAR >=60 max The estimated FILTRATION RATE estimate ml/min glomerula r (test code = GFR) filtration rate is computed usingpatient ra ce, age (>18), sex, and serum creatinin e. If anyof the neede d data elements a re missing the Laboratory urbano ot compute an estimation of t he glomerular filtration rate . CREATININE (test 1.0 mg/dL 0.6-1.5 N code = CREAT) BUN/CREATININE 11.0 12.0-20.0 L RATIO (test code = BUN/CREA) CALCIUM (test code 8.6 mg/dL 8.5-10.1 N = CA) LACTIC [id number] 10:20:00 Test Item Value Reference Range Interpretation Comments LACTIC ACID (test code = LACT) 0.6 mmol/L 0.4-2.0 N CBC W/AUTO [id number] 09:44:00 Test Item Value Reference Range Interpretation Comments WHITE BLOOD CELL (test code = 5.4 10 3/uL 4.5-11.0 N WBC) RED BLOOD CELL (test code = 4.10 10 6/uL 4.30-5.90 L RBC) HEMOGLOBIN (test code = HGB) 12.5 g/dL 14.0-18.0 L HEMATOCRIT (test code = HCT) 37.0 % 40.0-55.0 L MEAN CELL VOLUME (test code = 90 fL 81-102 N MCV) MEAN CELL HGB (test code = 30.5 pg 26.0-34.0 N MCH) MEAN CELL HGB CONCENTRATION 33.8 g/dL 31.0-37.0 N (test code = MCHC) RED CELL DISTRIBUTION WIDTH 12.5 % 11.6-14.4 N (test code = RDW) PLATELET COUNT (test code = 154 10 3/uL 150-400 N PLT) MEAN PLATELET VOLUME (test 9.9 fL 9.0-12.6 N code = MPV) NEUTROPHIL % (test code = NT%) 61.0 % 33.0-76.0 N IMMATURE GRANULOCYTE % (test 0.6 % 0.0-1.0 N code = IG%) LYMPHOCYTE % (test code = LY%) 27.1 % 14.0-56.4 N MONOCYTE % (test code = MO%) 10.0 % 0.0-12.9 N EOSINOPHIL % (test code = EO%) 1.1 % 0.0-7.0 N BASOPHIL % (test code = BA%) 0.2 % 0-2.0 N NUCLEATED RBC % (test code = 0.0 % 0-0.2 N NRBC%) NEUTROPHIL # (test code = NT#) 3.28 10 3/uL 1.5-7.0 N IMMATURE GRANULOCYTE # (test 0.030 x10 3/uL 0.000-0.100 N code = IG#) LYMPHOCYTE # (test code = LY#) 1.46 10 3/uL 1.50-4.00 L MONOCYTE # (test code = MO#) 0.54 10 3/uL 0.20-0.80 N EOSINOPHIL # (test code = EO#) 0.06 10 3/uL 0.0-0.5 N BASOPHIL # (test code = BA#) 0.01 10 3/uL 0.0-0.1 N NUCLEATED RBC # (test code = 0.000 10 3/uL 0.000-0.012 N NRBC#) COVID 19 INHOUSE [id number] 07:18:00 Test Item Value Reference Range Interpretation Comments COVID 19 INHOUSE NEGATIVE Negative Negative re sults do not AG (test code = preclude 201 9-nCoV infection [id number]) andshould not b e used as the sole basis for treatment or otherpatient ma nagement decisions. Nega tive results must becombined with clinical observ ations, patient history , andepidemiologi seb information. Notes Date/Time Note Provider Source 2022-01-11 09:48:00-00:00 [facility] ([facility]) Med Order Sheet REPORT #: [id number] REPORT STATUS: Signed DATE: 01/11/22 TIME: 947 PATIENT: MAURICIO FALL UNIT #: [id number] ROOM #: NC.5201 BED: 1 : 80 AGE: 41 SEX: M ATTEND: Gopal Lopes MD ADM AUTHOR: Deborah Retana ATTENTION *EDITS and/or ADDENDA must be made in Patient Ke eper for this note. * * Edits and ammendments created in [facility] are not visible * * in Patient Keeper or the legal medical record ([facility]). * Discharge Medication Reconciliation DISCHARGE MEDICATION LIST amLODIPine Tab (Norvasc Tab) Dose: 5 MG PO DAILY - TAKE 1 TABLET BY MOUTH EVERY DAY; #30 - SIG O btained From DrFirst TAKE 1 TABLET BY MOUTH EVERY DAY; #30 - SIG Obta ined From DrFirst TAKE 1 TABLET BY MOUTH EVERY DAY; #30 - SIG Obta ined From DrFirst omeprazole capsule,delayed release Dose: 40 MG PO BID Dicyclomine Cap (Bentyl Cap) Dose: 10MG PO TID PRN abdominal cramps/pain, Di sp: 20 capsule, Refills: 0 New: Ondansetron ODT Tab (Zofran ODT Tab) Dose: 4 MG PO Q6H PRN nausea/vomiting, Disp: 20 tablet, Refills: 0 Hosp: Ciprofloxacin Tab (Cipro Tab) Dose: 500 MG PO Q12H for colitis, Disp: 16 tabl et, Refills: 0 Hosp: metroNIDAZOLE Tab (Flagyl Tab) Dose: 500 MG PO Q8H for colitis, Disp: 24 table t, Refills: 0 STOPPED HOSPITAL MEDICATIONS Dc'd: Acetaminophen Tab (Tylenol Tab) 650MG PO Q 4H PRN pain 1-3/temp > 100.5/headacheDc'd: Acetaminophen/Codeine #3 Tab (Tylenol #3 Tab) 1TAB PO Q4H PRN pain scale 4-6Dc'd: guaiFENesin Oral Liq uid (Robitussin Sugar-Free Oral Liq) 200MG PO Q4H PRN coughDc'd: hydrALAZIN E Inj (Apresoline Inj) 10MG IV Q6H PRN sbp>160Dc'd: Melatonin Tab 3MG PO BED TIME PRN insomniaDc'd: morphine Inj (morphine Inj) 2MG IV Q4H PRN pain scale 7-10Dc'd: Piperacillin/Tazo Inj (Zosyn Inj) 3.375GM IV Q8H in NS (Sodium Chloride 0.9%) 100ML Dc'd: Polyethylene Glycol Powder (Miralax Powder ) 1PKT PO DAILY PRN constipation at 0948 ATTENTION *EDITS and/or ADDENDA must be made in [facility] for this note. * * Edits and ammendments created in [employer] are not visible * * in Patient Keeper or the legal medical record ([facility]). * [facility] #: [id number] END OF REPORT 2022-01-11 09:48:00-00:00 [facility] ([facility]) Hospitalist D/C Summary REPORT #: [id number] REPORT STATUS: Signed DATE: 01/11/22 TIME: 947 PATIENT: MAURICIO FALL UNIT #: [id number] ROOM #: NC.5201 BED: 1 : 80 AGE: 41 SEX: M ATTEND: Gopal Lopes MD [facility] AUTHOR: Deborah Retana ATTENTION *EDITS and/or ADDENDA must be made in Patient [facility] for this note. * * Edits and ammendments created in [facility] are not visible * * in Patient Keeper or the legal medical record ([facility]). * -- PROBLEMS/PROCEDURES -- ADMISSION DATE: 01/10/22 ADMITTING DIAGNOSES: - Abdominal pain - Colitis - Colon polyps - Diarrhea - Typhlitis DISCHARGE DATE: 01/11/22 DISCHARGE DIAGNOSES: - Abdominal pain - Colitis - Colon polyps - Diarrhea - Typhlitis -- HOSPITAL COURSE -- HOSPITAL COURSE: HISTORY OF PRESENT ILLNESS: 41 y/o M with PMHx of HTN, GERD, SVT, COVID-19, and precancerous colon polyps presented as a direct transfer from [facility] ER with c/o diffuse abd pain (greatest in RUQ) x 4 days. Josh cribes the pain as crampy, burning, and sharp with no aggravating factors a nd temporarily mildly alleviated by IV Morphine. Reports associated na usea, vomiting x 6 episodes (last emesis last night), and diarrhea (last epi sode yesterday AM). Denies fever, chills, CP, palpitations, SOB, hematochez ia, melena, hematemesis, urinary symptoms, or any other complaints. At [facility] ER, CT Abd/Pelvis w/o contrast showed "Loops of bowel w/o wall thickening or obstruction. Thickening of wall of cecum w/ inflamma tory and edematous changes adjacent to cecum. Small lymph nodes also identified. Findings c/w typhli tis. No free air, free fluid, or fluid collection." Labs essentially u nremarkable. Admitted for further eval and mgmt with GI and General Surgery consultatio ns placed by ER. HOSPITAL COURSE: Pt was admitted for reasons below. Abdominal pain 2/2 colitis - improving Nausea, vomiting, diarrhea - resolved - CT A/P w/o contrast at OSH showed findings c/w typhlitis - CT A/P w/ contrast showed findings c/w colitis involving proximal colon extending from cecum to mid transverse colon. - US RUQ neg for acute findings - Tolerating soft diet - DC MIVF - Continue Zosyn --> Transition to Cipro + Flagy l upon DC to complete 10-day course of abx total - Continue Bentyl, PRN analgesics/antiemetics - No acute intervention per General Surgery - Advised outpt f/u with his GI in 1-2 w ks to schedule colonoscopy as he lives in [facility] GERD - Continue PPI HTN - Continue home Amlodipine DVT PPx: SCD GI PPx: PPI CODE STATUS: Full Dispo: Home There were no acute events overnight. Pt was see n and examined on day of discharge. States he's feeli ng better. Abd pain significantly improved compared to initial presentation and currently ra ankit it as 2/10 in severity. Denies any further N/V/D or other complaints. Tolerating so ft diet. AFVSS. Pt stable for discharge home today. Cleare d by GI and General Surgery. Advised outpt f/u with PCP and his primary GI as noted above. eRx sent for PO abx, Bentyl PRN, and Zofran PRN. Pt expressed understanding and agree d to treatment plan. Answered all questions. Strict ED return precautions give n. -- DISCHARGE MEDICATIONS -- ALLERGIES: ketorolac (Unknown - Allergy) DISCHARGE MEDICATIONS: Please refer to Discharge Medication list for a complete list of discharge medications amLODIPine Tab (Norvasc Tab) 5 MG PO DAILY (TAKE 1 TABLET BY MOUTH EVERY DAY; #30 - SIG Obtained From...) Ciprofloxacin Tab (Cipro Tab) 500 MG PO Q12H for colitis, Disp: 16 tablet, Refills: 0 Dicyclomine Cap (Bentyl Cap) 10MG PO TID PRN abd ominal cramps/pain, Disp: 20 capsule, Refills: 0 metroNIDAZOLE Tab (Flagyl Tab) 500 MG PO Q8H for colitis, Disp: 24 tablet, Refills: 0 omeprazole capsule,delayed release 40 MG PO BID Ondansetron ODT Tab (Zofran ODT Tab) 4 MG PO Q6H PRN nausea/vomiting, Disp: 20 tablet, Refills: 0 -- DISCHARGE INSTRUCTIONS -- PK DISCHARGE ORDERS: DC Order - No eCQM 2019. Details: Details: Order number: [id number] Category: PKDC - PK Discharge Orders Order status: Transmitted Details: Discharge order: Yes Discharge to: Home/Self Care Diet: Cardiac Activity: As Tolerated PCP: Your PCP PCP follow up timeframe: In 1-2 weeks Additional instructions: 1. Complete antibiotics until finished. 2. Follow-up outpatient with your gastroenterol ogist in 1 to 2 weeks to schedule a colonoscopy. Additional Discharge Routines: PCP Follow-Up Ordered by: Deborah Retana Jan 11, 2022 9:48a m Entered by: Deborah Retana Service date: Jan 11, 2022 9:46am Discharge w/Instructions:PKD - PK Discharge Ord ers In 1-2 weeks; Your PCP; PCP Follow-Up ADDTIONAL DISCHARGE INSTRUCTIONS: Emergency Instructions: The patient was instruct ed to present to the nearest Emergency Department or call 911 should their sy mptoms return or worsen.; -- OBJECTIVE -- VITALS (01/10 20:23 - 01/11 20:23): Temperature C: 36.7 (36.7 - 37.0) Temperature source: Oral Pulse Rate 59 (55 - 65) Respiratory rate: 18 (18 - 21) BP: 134/74 (103/65 - 134/74) I/Os (01/10 07:00 - 01/11 07:00): Net -300 Intake 300 Output 600 -EXAM- OTHER: General: Well developed, well nourished, in no apparent distress. Head: Normocephalic, atraumatic. Eyes: PERRL, EOM intact, conjunctiva and sclera clear. Ears: grossly normal hearing. Nose: No deformity, no discharge, no inflammation, no lesions. Mouth: Oropharynx without deformities or lesions, normal mucosa.. Neck: Supple. Chest: Grossly normal appearance. Lungs: Clear bilaterally with normal respiratory effort. Heart: Regular rate and rhythm. Abdomen: Soft, non-tender. Musculoskeletal: No deformity, joint ROM grossly normal. Extremities: No clubbing, no cyanosis, no edema. Neurological: No focal deficits, cranial nerves II-XII grossly intact, normal sensation. Pulses: Pulses normal in all extremities. Skin: Warm, dry. Psychiatric: Alert and oriented to time, person, place. Normal mood and affect, intact j udgment and insight. -- DATA -- LABS BASIC METABOLIC PANEL (01/11/22 07:38) SODIUM 144 POTASSIUM 4.0 CHLORIDE 110H H CARBON DIOXIDE 30 ANION GAP 8.0 GLUCOSE 123H H BLOOD UREA NITROGEN 11 GLOMERULAR FILTRATION RATE >=60 max estimate CREATININE 1.1 BUN/CREATININE RATIO 10.0 L CALCIUM 8.5 CBC W/AUTO DIFF (01/11/22 07:38) WHITE BLOOD CELL 4.3L L RED BLOOD CELL 4.00 L HEMOGLOBIN 12.1L L HEMATOCRIT 36.1L L MEAN CELL VOLUME 90 MEAN CELL HGB 30.3 MEAN CELL HGB CONCENTRATION 33.5 RED CELL DISTRIBUTION WIDTH 12.4 PLATELET COUNT 191 MEAN PLATELET VOLUME 10.1 NEUTROPHIL % 53.6 IMMATURE GRANULOCYTE % 0.2 LYMPHOCYTE % 33.0 MONOCYTE % 10.7 EOSINOPHIL % 2.3 BASOPHIL % 0.2 NUCLEATED RBC % 0.0 NEUTROPHIL # 2.30 IMMATURE GRANULOCYTE # 0.010 LYMPHOCYTE # 1.42 L MONOCYTE # 0.46 EOSINOPHIL # 0.10 BASOPHIL # 0.01 NUCLEATED RBC # 0.000 -- QUALITY -- -MEDICATIONS- - Unable to obtain an accurate home med ication list at this time. [facility] where [facility] is of [facility] essence. To delay treatment would jeopardize the pat ient's health status on the day of the encounter. -VTE PROPHYLAXIS -GENERAL- Yes TYPE OF VTE mechanical compression device -- ATTESTATION -- TIME SPENT ON PATIENT CARE: - Discharge planning 45 minutes - > 50% of time spent on Counseling/Care Coordi [place] CARE ACTIVITIES / CARE COORDINATION: - I have reviewed the history and repeated the [place] elements - I have seen and examined this patient - I have reviewed the progress in the clinical course since the last examination - I have discussed the thomas ent's condition with other members of the care team Signed in PatientKeeper by Deborah Retana on 07/04 at 20:31 Cosigned by TRAVIS RAMACHANDRAN MD on 01/12/22 at 07:10 at 0710 Electronically Signed by Travis Ramachandran MD on 01/12 at 0710 ATTENTION *EDITS and/or ADDENDA must be made in Patient Ke eper for this note. * * Edits and ammendments created in [employer] are not visible * * in Patient Keeper or the legal medical record (HPF). * [facility] #: [id number] END OF REPORT 2022-01-11 09:06:00-00:00 [facility] ([facility]) Gastroenterology Prog. Note REPORT #: [id number] REPORT STATUS: Signed DATE: 01/11/22 TIME: 905 PATIENT: MAURICIO FALL UNIT #: [id number] ROOM #: [id number] BED: 1 : 80 AGE: 41 SEX: M ATTEND: Gopal Lopes MD ADM AUTHOR: Mateo Martin MD ATTENTION *EDITS and/or ADDENDA must be made in Patient Ke eper for this note. * * Edits and ammendments created in [employer] are not visible * * in Patient Keeper or the legal medical record (HPF). * -- ASSESSMENT AND PLAN -- PROBLEMS: 1: Abdominal pain A/P: Better. He can be discharged home with a to michelle of 10days on antibiotics. 2: Colon polyps A/P: Will need out patient colonoscopy to [facility]. [place] He says that he has a GI doctor that he follows regularly. Upon discharge, he will see him in a week or 2 for scheduling a colonoscopy. 3: Diarrhea A/P: Some diarrhea today. Stool testing pending. 4: Colitis A/P: On IV contrast CT shows colitis in the right colon. With a short duration of illness, this is most likely infectious etiol ogy., -- SUBJECTIVE -- HPI: patient is doing better. No abdominal pain. -- OBJECTIVE -- VITALS (01/10 09:07 - 01/11 09:07): Temperature C: 36.7 (36.7 - 37.1) Temperature source: Oral Pulse Rate 55 (55 - 75) Respiratory rate: 18 (17 - 21) BP: 117/66 (103/65 - 128/70) I/Os (01/10 07:00 - 01/11 07:00): Net -300 Intake 300 Output 600 -EXAM- OTHER: General: Well developed, well nourished, in no apparent distress. Head: Normocephalic, atraumatic. Eyes: PERRL, EOM intact, conjunctiva and sclera clear. Ears: grossly normal hearing. Nose: No deformity, no discharge, no inflammation, no lesions. Mouth: Oropharynx without deformities or lesions, normal mucosa.. Neck: Supple. Chest: Grossly normal appearance. Lungs: Clear bilaterally with normal respiratory effort. Heart: Regular rate and rhythm. Abdomen: Soft, diffuse abd TTP (greatest in RLQ). Carnett`s sign. Musculoskeletal: No deformity, joint ROM grossly normal. Extremities: No clubbing, no cyanosis, no edema. Neurological: No focal deficits, cranial nerves II-XII grossly intact, normal sensation. Pulses: Pulses normal in all extremities. Skin: Warm, dry. Psychiatric: Alert and oriented to time, person, place. Normal mood and affect, intact j udgment and insight. -- DATA -- MEDICATIONS MELATONIN 3 MG PO BEDTIME PRN CODEINE PHOSPHATE/APAP 1 TAB PO Q4H PRN morphine SULFATE 2 MG IV Q4H PRN guaiFENesin 200 MG PO Q4H PRN ONDANSETRON HCL/PF 4 MG IV Q4H PRN amLODIPine BESYLATE 5 MG PO DAILY ACETAMINOPHEN 650 MG PO Q4H PRN PANTOPRAZOLE 40 MG PO DAILY DICYCLOMINE HCL 10 MG PO TID SODIUM CHLORIDE 0.9% 1000 ML IV .Q10H PIPERAC/TAZOBACTAM with/in SODIUM CHLORIDE 100 m L BAG 3.375 GM IV Q8H hydrALAZINE HCL 10 MG IV Q6H PRN polyethylene glycoL 3350 1 PKT PO DAILY PRN LABS BASIC METABOLIC PANEL (01/11/22 07:38) SODIUM 144 POTASSIUM 4.0 CHLORIDE 110H H CARBON DIOXIDE 30 ANION GAP 8.0 GLUCOSE 123H H BLOOD UREA NITROGEN 11 GLOMERULAR FILTRATION RATE >=60 max estimate CREATININE 1.1 BUN/CREATININE RATIO 10.0 L CALCIUM 8.5 CBC W/AUTO DIFF (01/11/22 07:38) WHITE BLOOD CELL 4.3L L RED BLOOD CELL 4.00 L HEMOGLOBIN 12.1L L HEMATOCRIT 36.1L L MEAN CELL VOLUME 90 MEAN CELL HGB 30.3 MEAN CELL HGB CONCENTRATION 33.5 RED CELL DISTRIBUTION WIDTH 12.4 PLATELET COUNT 191 MEAN PLATELET VOLUME 10.1 NEUTROPHIL % 53.6 IMMATURE GRANULOCYTE % 0.2 LYMPHOCYTE % 33.0 MONOCYTE % 10.7 EOSINOPHIL % 2.3 BASOPHIL % 0.2 NUCLEATED RBC % 0.0 NEUTROPHIL # 2.30 IMMATURE GRANULOCYTE # 0.010 LYMPHOCYTE # 1.42 L MONOCYTE # 0.46 EOSINOPHIL # 0.10 BASOPHIL # 0.01 NUCLEATED RBC # 0.000 Signed in PatientKeeper by Mateo Martin MD on at 09:11 Electronically Signed by Mateo Martin MD on 07/04 at 0911 ATTENTION *EDITS and/or ADDENDA must be made in Patient Ke eper for this note. * * Edits and ammendments created in [facility] are not visible * * in Patient Keeper or the legal medical record ([facility]). * RPT #: [id number] END OF REPORT 2022-01-10 13:00:00-00:00 [facility] ([facility]) Hospitalist Progress Note REPORT #: [id number] REPORT STATUS: Signed DATE: 01/10/22 TIME: 1300 PATIENT: MAURICIO FALL UNIT #: [id number] ROOM #: [id number] BED: 1 : 80 AGE: 41 SEX: M ATTEND: Gopal Lopes MD ADM AUTHOR: Deborah Retana ATTENTION *EDITS and/or ADDENDA must be made in Patient Ke eper for this note. * * Edits and ammendments created in [employer] are not visible * * in Patient Keeper or the legal medical record (HPF). * -- CO-SIGNATURE -- COMMENTS: Reviewed the note ,agreed with the plan Signed in PatientKeeper by KATIE PERDUE MD on 01/11/22 at 06:54 -- ASSESSMENT AND PLAN -- GENERAL ASSESSMENT: Abdominal pain 2/2 colitis - improving Nausea and vomiting - resolved - CT A/P w/o contrast at OSH showed findings c/w typhlitis - CT A/P w/ contrast showed findings c/w colitis involving proximal colon extending from cecum to mid transverse colon. - US RUQ neg for acute findings - Advance to FLD and ADAT - Continue MIVF: NS at 100 cc/h - Continue Zosyn - Continue Bentyl, PRN analgesics/antiemetics - No acute intervention per General Surgery - Advised outpt f/u with his GI for colo noscopy as he lives in [facility] Diarrhea - resolved - f/u stool studies if able - Monitor for improvement GERD - Continue PPI HTN - Continue home Amlodipine - PRN IV Hydralazine CONSULTANTS: GI General Surgery ADDITIONAL COMMENTS: DVT PPx: SCD GI PPx: PPI CODE STATUS: Full Plan: d/w pt, RN Dispo: Home pending tolerating advanced diet, cl inical improvement and clearance by consultants. Possible DC tmrw. -- SUBJECTIVE -- PATIENT NARRATIVE: No acute events overnight. Pt seen and examined resting in bed this AM. In NAD. States he's feeling better. Abd pain improving w/o need for PRN analgesics. Denies any further N/V/D or other complaints. Tolerating CLD. AFVSS, on room air. -- OBJECTIVE -- VITALS (01/09 15:01 - 01/10 15:01): Temperature C: 37.0 (36.7 - 37.1) Temperature source: Oral Pulse Rate 62 (59 - 73) Respiratory rate: 18 (18 - 20) BP: 128/70 (113/57 - 133/72) -EXAM- OTHER: General: Well developed, well nourished, in no apparent distress. Head: Normocephalic, atraumatic. Eyes: PERRL, EOM intact, conjunctiva and sclera clear. Ears: grossly normal hearing. Nose: No deformity, no discharge, no inflammation, no lesions. Mouth: Oropharynx without deformities or lesions, normal mucosa.. Neck: Supple. Chest: Grossly normal appearance. Lungs: Clear bilaterally with normal respiratory effort. Heart: Regular rate and rhythm. Abdomen: Soft, diffuse abd TTP (greatest in RUQ). Musculoskeletal: No deformity, joint ROM grossly normal. Extremities: No clubbing, no cyanosis, no edema. Neurological: No focal deficits, cranial nerves II-XII grossly intact, normal sensation. Pulses: Pulses normal in all extremities. Skin: Warm, dry. Psychiatric: Alert and oriented to time, person, place. Normal mood and affect, intact j udgment and insight. -- DATA -- MEDICATIONS MELATONIN 3 MG PO BEDTIME PRN CODEINE PHOSPHATE/APAP 1 TAB PO Q4H PRN morphine SULFATE 2 MG IV Q4H PRN guaiFENesin 200 MG PO Q4H PRN ONDANSETRON HCL/PF 4 MG IV Q4H PRN amLODIPine BESYLATE 5 MG PO DAILY ACETAMINOPHEN 650 MG PO Q4H PRN PANTOPRAZOLE 40 MG PO DAILY DICYCLOMINE HCL 10 MG PO TID SODIUM CHLORIDE 0.9% 1000 ML IV .Q10H PIPERAC/TAZOBACTAM with/in SODIUM CHLORIDE 100 m L BAG 3.375 GM IV Q8H hydrALAZINE HCL 10 MG IV Q6H PRN polyethylene glycoL 3350 1 PKT PO DAILY PRN LABS CBC W/AUTO DIFF (01/10/22 05:55) WHITE BLOOD CELL 4.3L L RED BLOOD CELL 4.19 L HEMOGLOBIN 12.7L L HEMATOCRIT 37.6L L MEAN CELL VOLUME 90 MEAN CELL HGB 30.3 MEAN CELL HGB CONCENTRATION 33.8 RED CELL DISTRIBUTION WIDTH 12.6 PLATELET COUNT 163 MEAN PLATELET VOLUME 9.9 NEUTROPHIL % 55.7 IMMATURE GRANULOCYTE % 0.2 LYMPHOCYTE % 29.3 MONOCYTE % 11.7 EOSINOPHIL % 2.6 BASOPHIL % 0.5 NUCLEATED RBC % 0.0 NEUTROPHIL # 2.38 IMMATURE GRANULOCYTE # 0.010 LYMPHOCYTE # 1.25 L MONOCYTE # 0.50 EOSINOPHIL # 0.11 BASOPHIL # 0.02 NUCLEATED RBC # 0.000 BASIC METABOLIC PANEL (01/10/22 05:55) SODIUM 139 POTASSIUM 3.7 CHLORIDE 106 CARBON DIOXIDE 27 ANION GAP 9.7 GLUCOSE 81 BLOOD UREA NITROGEN 10 GLOMERULAR FILTRATION RATE >=60 max estimate CREATININE 1.0 BUN/CREATININE RATIO 10.0 L CALCIUM 8.7 MAG (01/10/22 05:55) MAGNESIUM 2.1 PHOS (01/10/22 05:55) PHOSPHOROUS 3.5 -- QUALITY -- -MEDICATIONS- - Unable to obtain an accurate home med ication list at this time. The patient is in an urgent or emergent medical situ ation where time is of the essence. To delay treatment would jeopardize the pat ient's health status on the day of the encounter. -VTE PROPHYLAXIS -GENERAL- Yes TYPE OF VTE mechanical compression device -- ATTESTATION -- TIME SPENT ON PATIENT CARE: - Direct 35 minutes - > 50% of time spent on Counseling/Care Coordi [facility] CARE ACTIVITIES / CARE COORDINATION: - I have reviewed the history and repeated the moncada elements - I have seen and examined this patient - I have reviewed the progress in the clinical course since the last examination - I have discussed the thomas ent's condition with other members of the care team Signed in PatientKeeper by Deborah Retana on at 15:14 Cosigned by KATIE PERDUE MD on 01/11/22 at 06 :54 at 0654 Electronically Signed by Katie Perdue MD on 0 01/11/22 at 0654 ATTENTION *EDITS and/or ADDENDA must be made in Patient [facility] for this note. * * Edits and ammendments created in [employer] are not visible * * in Patient Keeper or the legal medical record ([facility]). * RPT #: [id number] END OF REPORT 2022-01-10 12:39:00-00:00 [facility] ([facility]) Gastroenterology Prog. Note REPORT #: [id number] REPORT STATUS: Signed DATE: 01/10/22 TIME: 1239 PATIENT: MAURICIO FALL UNIT #: [id number] ROOM #: [id number] BED: 1 : 80 AGE: 41 SEX: M ATTEND: Gopal Lopes MD ADM AUTHOR: Mateo Martin MD ATTENTION *EDITS and/or ADDENDA must be made in Patient [facility] for this note. * * Edits and ammendments created in [employer] are not visible * * in Patient Keeper or the legal medical record (HPF). * -- ASSESSMENT AND PLAN -- PROBLEMS: 1: Abdominal pain A/P: Better. 2: Colon polyps A/P: Will need out patient colonoscopy to [facility]. [place] He says that he has a GI doctor that he follows regularly. Upon discharge, he will see him in a week or 2 for scheduling a colonoscopy. 3: Diarrhea A/P: Some diarrhea today. Stool testing pending. 4: Colitis A/P: On IV contrast CT shows colitis in the right colon. With a short duration of illness, this is most likely infectious etiol ogjeff., -- SUBJECTIVE -- HPI: Patient`s pain is better. No other GI issues. Im proving in diarrhea also. -REVIEW OF SYSTEMS- GENERAL: Negative for fever, malaise, fatigue. EYES: Negative for blurry vision. No diplopia. EARS/NOSE/THROAT: Negative for sore throat. No o talgia. No rhinorrhea. BREAST: Negative for change in shape, swelling, masses, nipple discharge, pain, skin changes. RESPIRATORY: Negative for dyspnea or wheeze. No cough. CARDIOVASCULAR: Negative for chest pain or palpi tations. No extremity swelling. GASTROINTESTINAL: Positive for abdominal pain an d N/V/D. GENITOURINARY: Negative for dysuria, frequency, or urgency. No gross hematuria. MUSCULOSKELETAL: Negative for joint stiffness, p ain, or arthralgias. SKIN: Negative for rashes. No pruritus. NEUROLOGICAL: Negative for headache. No vertigo. Denies paresthesias. PSYCHIATRIC: Negative for specific complaints. -- OBJECTIVE -- VITALS (01/09 12:39 - 01/10 12:39): Temperature C: 37.0 (36.7 - 37.1) Temperature source: Oral Pulse Rate 62 (59 - 73) Respiratory rate: 18 (18 - 20) BP: 128/70 (113/57 - 133/72) -EXAM- OTHER: General: Well developed, well nourished, in no apparent distress. Head: Normocephalic, atraumatic. Eyes: PERRL, EOM intact, conjunctiva and sclera clear. Ears: grossly normal hearing. Nose: No deformity, no discharge, no inflammation, no lesions. Mouth: Oropharynx without deformities or lesions, normal mucosa.. Neck: Supple. Chest: Grossly normal appearance. Lungs: Clear bilaterally with normal respiratory effort. Heart: Regular rate and rhythm. Abdomen: Soft, diffuse abd TTP (greatest in RLQ). Carnett`s sign. Musculoskeletal: No deformity, joint ROM grossly normal. Extremities: No clubbing, no cyanosis, no edema. Neurological: No focal deficits, cranial nerves II-XII grossly intact, normal sensation. Pulses: Pulses normal in all extremities. Skin: Warm, dry. Psychiatric: Alert and oriented to time, person, place. Normal mood and affect, intact j udgment and insight. -- DATA -- MEDICATIONS MELATONIN 3 MG PO BEDTIME PRN CODEINE PHOSPHATE/APAP 1 TAB PO Q4H PRN morphine SULFATE 2 MG IV Q4H PRN guaiFENesin 200 MG PO Q4H PRN ONDANSETRON HCL/PF 4 MG IV Q4H PRN amLODIPine BESYLATE 5 MG PO DAILY ACETAMINOPHEN 650 MG PO Q4H PRN PANTOPRAZOLE 40 MG PO DAILY DICYCLOMINE HCL 10 MG PO TID SODIUM CHLORIDE 0.9% 1000 ML IV .Q10H PIPERAC/TAZOBACTAM with/in SODIUM CHLORIDE 100 m L BAG 3.375 GM IV Q8H hydrALAZINE HCL 10 MG IV Q6H PRN polyethylene glycoL 3350 1 PKT PO DAILY PRN LABS CBC W/AUTO DIFF (01/10/22 05:55) WHITE BLOOD CELL 4.3L L RED BLOOD CELL 4.19 L HEMOGLOBIN 12.7L L HEMATOCRIT 37.6L L MEAN CELL VOLUME 90 MEAN CELL HGB 30.3 MEAN CELL HGB CONCENTRATION 33.8 RED CELL DISTRIBUTION WIDTH 12.6 PLATELET COUNT 163 MEAN PLATELET VOLUME 9.9 NEUTROPHIL % 55.7 IMMATURE GRANULOCYTE % 0.2 LYMPHOCYTE % 29.3 MONOCYTE % 11.7 EOSINOPHIL % 2.6 BASOPHIL % 0.5 NUCLEATED RBC % 0.0 NEUTROPHIL # 2.38 IMMATURE GRANULOCYTE # 0.010 LYMPHOCYTE # 1.25 L MONOCYTE # 0.50 EOSINOPHIL # 0.11 BASOPHIL # 0.02 NUCLEATED RBC # 0.000 BASIC METABOLIC PANEL (01/10/22 05:55) SODIUM 139 POTASSIUM 3.7 CHLORIDE 106 CARBON DIOXIDE 27 ANION GAP 9.7 GLUCOSE 81 BLOOD UREA NITROGEN 10 GLOMERULAR FILTRATION RATE >=60 max estimate CREATININE 1.0 BUN/CREATININE RATIO 10.0 L CALCIUM 8.7 MAG (01/10/22 05:55) MAGNESIUM 2.1 PHOS (01/10/22 05:55) PHOSPHOROUS 3.5 Signed in PatientKeeper by Mateo Martin MD on at 12:42 Electronically Signed by Mateo Martin MD on 12/13 07/04 at 1242 ATTENTION *EDITS and/or ADDENDA must be made in Patient Ke eper for this note. * * Edits and ammendments created in [employer] are not visible * * in Patient Keeper or the legal medical record (HPF). * RPT #: [id number] END OF REPORT 2022-01-10 11:31:00-00:00 [facility] ([facility]) Progress Note REPORT #: [id number] REPORT STATUS: Signed DATE: 01/10/22 TIME: 1131 PATIENT: MAURICIO FALL UNIT #: [id number] ROOM #: [id number].[id number] BED: 1 : 80 AGE: 41 SEX: M ATTEND: Gopal Lopes MD ADM AUTHOR: Vishal De La Garza MD ATTENTION *EDITS and/or ADDENDA must be made in Patient Cayden wallace for this note. * * Edits and ammendments created in [employer] are not visible * * in Patient Keeper or the legal medical record ([facility]). * -- ASSESSMENT AND PLAN -- PROBLEMS: 1: Colitis A/P: Reviewed contrasted CT scan from yesterday that shows right colon up to transverse colon colitis. No perforation or absc ess- Per outside CT scan that was noncontrasted -Diet as per GI -No immediate surgical intervention -We will continue to follow -- SUBJECTIVE -- CHIEF COMPLAINT: Abdominal pain HPI: Patient complains of moderate, sharp right upper quadrant abdominal pain that has improved since yesterday. Pain improves with rest. Pain worsens with movement. No nausea or vomiting. -REVIEW OF SYSTEMS- GENERAL: Negative for fever, malaise, fatigue. EYES: Negative for blurry vision. No diplopia. RESPIRATORY: Negative for dyspnea or wheeze. No cough. CARDIOVASCULAR: Negative for chest pain or palpi tations. No extremity swelling. GASTROINTESTINAL: Refer to HPI GENITOURINARY: Negative for dysuria, frequency, or urgency. No gross hematuria. MUSCULOSKELETAL: Negative for joint stiffness, p ain, or arthralgias. SKIN: Negative for rashes. No pruritus. NEUROLOGICAL: Negative for headache. No vertigo. Denies paresthesias. PSYCHIATRIC: Negative for specific complaints. -- OBJECTIVE -- VITALS (01/09 11:31 - 01/10 11:31): Temperature C: 37.0 (36.7 - 37.1) Temperature source: Oral Pulse Rate 62 (59 - 73) Respiratory rate: 18 (18 - 20) BP: 128/70 (113/57 - 133/72) -EXAM- GENERAL: Well developed, well nourished, in no a pparent distress. HEAD: Normocephalic, atraumatic. EYES: conjunctiva and sclera clear, lids normal. NOSE: No deformity, no discharge CHEST: Grossly normal appearance. LUNGS: No audible wheezing, nonlabored breathing HEART: Regular rate and rhythm ABDOMEN: Soft, right upper quadrant tenderness, Without guarding, soft and rest of the abdomen, not diffusely per itoneal MUSCULOSKELETAL: No deformity EXTREMITIES: No clubbing, no cyanosis, no edema. SKIN: Intact without significant lesions, or khushbu hes. PSYCHIATRIC: Alert and oriented to time, person, place. Normal mood and affect, intact judgment and insight. -- DATA -- MEDICATIONS MELATONIN 3 MG PO BEDTIME PRN CODEINE PHOSPHATE/APAP 1 TAB PO Q4H PRN morphine SULFATE 2 MG IV Q4H PRN guaiFENesin 200 MG PO Q4H PRN ONDANSETRON HCL/PF 4 MG IV Q4H PRN amLODIPine BESYLATE 5 MG PO DAILY ACETAMINOPHEN 650 MG PO Q4H PRN PANTOPRAZOLE 40 MG PO DAILY DICYCLOMINE HCL 10 MG PO TID SODIUM CHLORIDE 0.9% 1000 ML IV .Q10H PIPERAC/TAZOBACTAM with/in SODIUM CHLORIDE 100 m L BAG 3.375 GM IV Q8H hydrALAZINE HCL 10 MG IV Q6H PRN polyethylene glycoL 3350 1 PKT PO DAILY PRN LABS CBC W/AUTO DIFF (01/10/22 05:55) WHITE BLOOD CELL 4.3L L RED BLOOD CELL 4.19 L HEMOGLOBIN 12.7L L HEMATOCRIT 37.6L L MEAN CELL VOLUME 90 MEAN CELL HGB 30.3 MEAN CELL HGB CONCENTRATION 33.8 RED CELL DISTRIBUTION WIDTH 12.6 PLATELET COUNT 163 MEAN PLATELET VOLUME 9.9 NEUTROPHIL % 55.7 IMMATURE GRANULOCYTE % 0.2 LYMPHOCYTE % 29.3 MONOCYTE % 11.7 EOSINOPHIL % 2.6 BASOPHIL % 0.5 NUCLEATED RBC % 0.0 NEUTROPHIL # 2.38 IMMATURE GRANULOCYTE # 0.010 LYMPHOCYTE # 1.25 L MONOCYTE # 0.50 EOSINOPHIL # 0.11 BASOPHIL # 0.02 NUCLEATED RBC # 0.000 BASIC METABOLIC PANEL (01/10/22 05:55) SODIUM 139 POTASSIUM 3.7 CHLORIDE 106 CARBON DIOXIDE 27 ANION GAP 9.7 GLUCOSE 81 BLOOD UREA NITROGEN 10 GLOMERULAR FILTRATION RATE >=60 max estimate CREATININE 1.0 BUN/CREATININE RATIO 10.0 L CALCIUM 8.7 MAG (01/10/22 05:55) MAGNESIUM 2.1 PHOS (01/10/22 05:55) PHOSPHOROUS 3.5 Signed in PatientKeeper by Vishal De La Garza MD on 01/10/22 at 11:46 at 1146 ATTENTION *EDITS and/or ADDENDA must be made in Patient Ke ep for this note. * * Edits and ammendments created in [employer] are not visible * * in Patient Keeper or the legal medical record ([facility]). * RPT #: [id number] END OF REPORT 2022-01-10 09:27:00-00:00 [facility] ([facility]) Med Order Sheet REPORT #: [id number] REPORT STATUS: Signed DATE: 01/10/22 TIME: 926 PATIENT: MAURICIO FALL UNIT #: [id number] ROOM #: NC.[id number] BED: 1 : 80 AGE: 41 SEX: M ATTEND: Gopal Lopes MD ADM AUTHOR: Deborah Retana ATTENTION *EDITS and/or ADDENDA must be made in Patient Ke ep for this note. * * Edits and ammendments created in [employer] are not visible * * in Patient Keeper or the legal medical record ([facility]). * Admission Medication Reconciliation -- CONTINUED / CHANGED HOME MEDICATIONS -- Home: amLODIPine Tab (Norvasc Tab) 5 MG PO DAILY (TAKE 1 TABLET BY MOUTH EVERY DAY; #30 - SIG Obtained From...) Hosp: Existing: amLODIPine Tab (Norvasc Tab) 5MG PO DAILY Home: omeprazole capsule,delayed release 40 MG P O BID Hosp: Existing: Pantoprazole DR Tab (Protonix Ta b) 40MG PO DAILY at 0927 ATTENTION *EDITS and/or ADDENDA must be made in Patient Ke eper for this note. * * Edits and ammendments created in [facility] are not visible * * in Patient Keeper or the legal medical record ([facility]). * [facility] #: [id number] END OF REPORT 2022-01-09 21:30:00-00:00 [facility] ([facility]) Gastroenterology Consult REPORT #: [id number] REPORT STATUS: Signed DATE: 01/09/22 TIME: 2129 PATIENT: MAURICIO FALL UNIT #: [id number] ROOM #: NC.[id number] BED: 1 : 80 AGE: 41 SEX: M ATTEND: Gopal Lopes MD ADM AUTHOR: Mateo Martin MD ATTENTION *EDITS and/or ADDENDA must be made in Patient Ke eper for this note. * * Edits and ammendments created in [employer] are not visible * * in Patient Keeper or the legal medical record ([facility]). * -- ASSESSMENT AND PLAN -- PROBLEMS: 1: Abdominal pain A/P: I do not think this typhlitis. Cecal inflam mation positive. Patient has had a bout of infectious GI condition which has resolved. But the the pain in the abdomine is due to ACNES which got aggrevated with the infectious etiology. After the CT with contrast is done if negative a ny organic pathology, will attempt abdominal nerve block. Request to order CT abdomine and pelvis with IV constrast. 2: Colon polyps A/P: Will need out patient c olonoscopy to further evaluate. I have given him my Business card to make an appointment in my offic e in 2 weeks. Also if the discharge team can make the same for him to see me in my office in 2 weeks would be appreciated. 3: Diarrhea A/P: resolved. -- HISTORY -- REASON FOR CONSULT: Abnormal imaging. HPI: 41 y/o M with PMHx of HTN, GERD, SVT, COVID-19, and history of precancerous colon polyps 3yrs ago and strong family history fo same presented as a direct transfer from [facility] ER with c/o diffuse abd pain (greatest in RUQ) x 4 days. Describes the pain as crampy, burning, and sharp with aggrevation of sitting up posture and bending fo rward. Reports associated nausea, vomiting x 6 episodes (last emesis last night), and diarrhea (last episode yesterday AM). Denies fever, chills, CP, palpitations, SOB, hematochezia, melena, hematemesis, urinary sympt oms, or any other complaints. At outside ER, CT Abd/Pelvis w/o contrast showed "Loops of bowel w/o wall thickening or obstruction. Thickening of wall of cecum w/ inflammatory and edematous changes adjacent to cecum. Small lymph nodes also identified. Findings c/w typhlitis. No free air, free fluid, or fluid collection." Labs essentially unremarkable. -- ALLERGIES/HOME MEDS -- ALLERGIES: ketorolac (Unknown - Allergy) ALLERGIES COMMENTS: noted NO HOME MEDICATIONS -- SUBJECTIVE -- -REVIEW OF SYSTEMS- GENERAL: Negative for fever, malaise, fatigue. EYES: Negative for blurry vision. No diplopia. EARS/NOSE/THROAT: Negative for sore throat. No o talgia. No rhinorrhea. BREAST: Negative for change in shape, swelling, masses, nipple discharge, pain, skin changes. RESPIRATORY: Negative for dyspnea or wheeze. No cough. CARDIOVASCULAR: Negative for chest pain or palpi tations. No extremity swelling. GASTROINTESTINAL: Positive for abdominal pain an d N/V/D. GENITOURINARY: Negative for dysuria, frequency, or urgency. No gross hematuria. MUSCULOSKELETAL: Negative for joint stiffness, p ain, or arthralgias. SKIN: Negative for rashes. No pruritus. NEUROLOGICAL: Negative for headache. No vertigo. Denies paresthesias. PSYCHIATRIC: Negative for specific complaints. -- OBJECTIVE -- VITALS (01/08 21:30 - 01/09 21:30): Temperature F: 98.9 Temperature C: 37.0 (36.8 - 37.0) Temperature source: Oral Pulse Rate 73 (69 - 76) Respiratory rate: 18 (18 - 20) BP: 133/69 (111/64 - 133/78) Blood pressure source: Monitor -EXAM- OTHER: General: Well developed, well nourished, in no apparent distress. Head: Normocephalic, atraumatic. Eyes: PERRL, EOM intact, conjunctiva and sclera clear. Ears: grossly normal hearing. Nose: No deformity, no discharge, no inflammation, no lesions. Mouth: Oropharynx without deformities or lesions, normal mucosa.. Neck: Supple. Chest: Grossly normal appearance. Lungs: Clear bilaterally with normal respiratory effort. Heart: Regular rate and rhythm. Abdomen: Soft, diffuse abd TTP (greatest in RLQ). Carnett`s sign. Musculoskeletal: No deformity, joint ROM grossly normal. Extremities: No clubbing, no cyanosis, no edema. Neurological: No focal deficits, cranial nerves II-XII grossly intact, normal sensation. Pulses: Pulses normal in all extremities. Skin: Warm, dry. Psychiatric: Alert and oriented to time, person, place. Normal mood and affect, intact j udgment and insight. -- DATA -- MEDICATIONS MELATONIN 3 MG PO BEDTIME PRN CODEINE PHOSPHATE/APAP 1 TAB PO Q4H PRN morphine SULFATE 2 MG IV Q4H PRN guaiFENesin 200 MG PO Q4H PRN ONDANSETRON HCL/PF 4 MG IV Q4H PRN ACETAMINOPHEN 650 MG PO Q4H PRN DICYCLOMINE HCL 10 MG PO TID FAMOTIDINE 20 MG IV Q12HR SODIUM CHLORIDE 0.9% 1000 ML IV .Q10H PIPERAC/TAZOBACTAM with/in SODIUM CHLORIDE 100 m L BAG 3.375 GM IV Q8H hydrALAZINE HCL 10 MG IV Q6H PRN polyethylene glycoL 3350 1 PKT PO DAILY PRN LABS LIP (01/09/22 09:11) LIPASE 28 L HGBA1C - GLYCOSYLATED HGB (01/09/22 09:11) GLYCOSYLATED HEMOGLOBIN (HA1C) 5.4 MAG (01/09/22 09:11) MAGNESIUM 1.9 BASIC METABOLIC PANEL (01/09/22 09:11) SODIUM 139 POTASSIUM 3.5 CHLORIDE 106 CARBON DIOXIDE 26 ANION GAP 10.5 GLUCOSE 90 BLOOD UREA NITROGEN 11 GLOMERULAR FILTRATION RATE >=60 max estimate CREATININE 1.0 BUN/CREATININE RATIO 11.0 L CALCIUM 8.6 LIVER FUNCTION PANEL (01/09/22 09:11) TOTAL PROTEIN 6.4 ALBUMIN 3.1 L GLOBULIN 3.3 BILIRUBIN TOTAL 0.4 BILIRUBIN DIRECT 0.1 BILIRUBIN INDIRECT 0.3 SGOT/AST 22 SGPT/ALT 43 ALKALINE PHOSPHATASE 65 LACTIC ACID (01/09/22 09:11) LACTIC ACID 0.6 PHOS (01/09/22 09:11) PHOSPHOROUS 3.0 LIPID PROFILE (CORONARY RISK) (01/09/22 09:11) TRIGLYCERIDES 110 CHOLESTEROL 128 CHOLESTEROL/HDL RATIO 4 HDL CHOLESTEROL 30 L LIPOPROTEIN LDL 82 CBC W/AUTO DIFF (01/09/22 09:11) WHITE BLOOD CELL 5.4 RED BLOOD CELL 4.10 L HEMOGLOBIN 12.5L L HEMATOCRIT 37.0L L MEAN CELL VOLUME 90 MEAN CELL HGB 30.5 MEAN CELL HGB CONCENTRATION 33.8 RED CELL DISTRIBUTION WIDTH 12.5 PLATELET COUNT 154 MEAN PLATELET VOLUME 9.9 NEUTROPHIL % 61.0 IMMATURE GRANULOCYTE % 0.6 LYMPHOCYTE % 27.1 MONOCYTE % 10.0 EOSINOPHIL % 1.1 BASOPHIL % 0.2 NUCLEATED RBC % 0.0 NEUTROPHIL # 3.28 IMMATURE GRANULOCYTE # 0.030 LYMPHOCYTE # 1.46 L MONOCYTE # 0.54 EOSINOPHIL # 0.06 BASOPHIL # 0.01 NUCLEATED RBC # 0.000 COVID 19 INH AG (01/09/22 06:47) COVID 19 INHOUSE AG NEGATIVE Signed in PatientKeeper by Mateo Martin MD on at 21:38 Electronically Signed by Mateo Martin MD on 12/13 at 2138 ATTENTION *EDITS and/or ADDENDA must be made in Patient Ke eper for this note. * * Edits and ammendments created in [facility] are not visible * * in Patient Keeper or the legal medical record (HPF). * [facility] #: [id number] END OF REPORT 2022-01-09 12:53:00-00:00 [facility] ([facility]) General Surg. Consultation REPORT #: [id number] REPORT STATUS: Signed DATE: 01/09/22 TIME: 1253 PATIENT: MAURICIO FALL UNIT #: [id number] ROOM #: NC.5201 BED: 1 : 80 AGE: 41 SEX: M ATTEND: Gopal Lopes MD ADM AUTHOR: Vishal De La Garza MD ATTENTION *EDITS and/or ADDENDA must be made in Patient Ke eper for this note. * * Edits and ammendments created in [employer] are not visible * * in Patient Keeper or the legal medical record (HPF). * -- ASSESSMENT AND PLAN -- PROBLEMS: 1: Typhlitis A/P: - Per outside CT scan that was noncontraste d -Recommend repeat contrasted CT scan -Diet as per GI -GI consulted, they ordered an ultrasound -Abdominal pain does not match with typhlitis -No immediate surgical intervention -We will continue to follow -- HISTORY -- CONSULT REQUESTED BY: Gopal Lopes MD DATE/TIME AT BEDSIDE: 2022-01-09 12:30 REASON FOR CONSULT: Typhlitis CHIEF COMPLAINT: Abdominal pain HPI: Patient complains of severe, sharp, right upper quadrant abdominal pain that radiates to his back. Pain improves with pain me dication and worsens with movement. Patient has had prior cholecys tectomy and appendectomy. He presented to an outside facility where he is CT scan showi ng colitis. Patient denies nausea or vomiting. 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 EYES: Negative for blurry vision. No diplopia. RESPIRATORY: Negative for dyspnea or wheeze. No cough. CARDIOVASCULAR: Negative for chest pain or palpi tations. No extremity swelling. GASTROINTESTINAL: Refer to HPI GENITOURINARY: Negative for dysuria, frequency, or urgency. No gross hematuria. MUSCULOSKELETAL: Negative for joint stiffness, p ain, or arthralgias. SKIN: Negative for rashes. No pruritus. NEUROLOGICAL: Negative for headache. No vertigo. Denies paresthesias. PSYCHIATRIC: Negative for specific complaints. -- OBJECTIVE -- VITALS (01/08 12:53 - 01/09 12:53): Temperature F: 98.9 Temperature C: 36.9 Temperature source: Oral Pulse Rate 69 (69 - 76) Respiratory rate: 20 (18 - 20) BP: 111/64 (111/64 - 119/78) Blood pressure source: Monitor -EXAM- GENERAL: Well developed, well nourished, in no apparent distress. HEAD: Normocephalic, atraumatic. EYES: conjunctiva and sclera clear, lids normal. NOSE: No deformity, no discharge CHEST: Grossly normal appearance. LUNGS: No audible wheezing, nonlabored breathing HEART: Regular rate and rhythm ABDOMEN: Soft, right upper quadrant tenderness, focal guarding, soft and rest of the abdomen, not diffusely peritone al MUSCULOSKELETAL: No deformity EXTREMITIES: No clubbing, no cyanosis, no edema. SKIN: Intact without significant lesions, or khushbu hes. PSYCHIATRIC: Alert and oriented to time, person, place. Normal mood and affect, intact judgment and insight. -- DATA -- MEDICATIONS MELATONIN 3 MG PO BEDTIME PRN CODEINE PHOSPHATE/APAP 1 TAB PO Q4H PRN morphine SULFATE 2 MG IV Q4H PRN guaiFENesin 200 MG PO Q4H PRN ONDANSETRON HCL/PF 4 MG IV Q4H PRN ACETAMINOPHEN 650 MG PO Q4H PRN SODIUM CHLORIDE 0.9% 1000 ML IV .Q10H PIPERAC/TAZOBACTAM with/in SODIUM CHLORIDE 100 m L BAG 3.375 GM IV Q8H hydrALAZINE HCL 10 MG IV Q6H PRN polyethylene glycoL 3350 1 PKT PO DAILY PRN LABS LIP (01/09/22 09:11) LIPASE 28 L HGBA1C - GLYCOSYLATED HGB (01/09/22 09:11) GLYCOSYLATED HEMOGLOBIN (HA1C) 5.4 MAG (01/09/22 09:11) MAGNESIUM 1.9 BASIC METABOLIC PANEL (01/09/22 09:11) SODIUM 139 POTASSIUM 3.5 CHLORIDE 106 CARBON DIOXIDE 26 ANION GAP 10.5 GLUCOSE 90 BLOOD UREA NITROGEN 11 GLOMERULAR FILTRATION RATE >=60 max estimate CREATININE 1.0 BUN/CREATININE RATIO 11.0 L CALCIUM 8.6 LIVER FUNCTION PANEL (01/09/22 09:11) TOTAL PROTEIN 6.4 ALBUMIN 3.1 L GLOBULIN 3.3 BILIRUBIN TOTAL 0.4 BILIRUBIN DIRECT 0.1 BILIRUBIN INDIRECT 0.3 SGOT/AST 22 SGPT/ALT 43 ALKALINE PHOSPHATASE 65 LACTIC ACID (01/09/22 09:11) LACTIC ACID 0.6 PHOS (01/09/22 09:11) PHOSPHOROUS 3.0 LIPID PROFILE (CORONARY RISK) (01/09/22 09:11) TRIGLYCERIDES 110 CHOLESTEROL 128 CHOLESTEROL/HDL RATIO 4 HDL CHOLESTEROL 30 L LIPOPROTEIN LDL 82 CBC W/AUTO DIFF (01/09/22 09:11) WHITE BLOOD CELL 5.4 RED BLOOD CELL 4.10 L HEMOGLOBIN 12.5L L HEMATOCRIT 37.0L L MEAN CELL VOLUME 90 MEAN CELL HGB 30.5 MEAN CELL HGB CONCENTRATION 33.8 RED CELL DISTRIBUTION WIDTH 12.5 PLATELET COUNT 154 MEAN PLATELET VOLUME 9.9 NEUTROPHIL % 61.0 IMMATURE GRANULOCYTE % 0.6 LYMPHOCYTE % 27.1 MONOCYTE % 10.0 EOSINOPHIL % 1.1 BASOPHIL % 0.2 NUCLEATED RBC % 0.0 NEUTROPHIL # 3.28 IMMATURE GRANULOCYTE # 0.030 LYMPHOCYTE # 1.46 L MONOCYTE # 0.54 EOSINOPHIL # 0.06 BASOPHIL # 0.01 NUCLEATED RBC # 0.000 COVID 19 INH AG (01/09/22 06:47) COVID 19 INHOUSE AG NEGATIVE Signed in PatientKeeper by Vishal De La Garza MD on 01/09/22 at 15:31 at 1531 ATTENTION *EDITS and/or ADDENDA must be made in Patient [facility] for this note. * * Edits and ammendments created in [employer] are not visible * * in Patient Keeper or the legal medical record ([facility]). * RPT #: [id number] END OF REPORT 2022-01-09 09:00:00-00:00 [facility] ([facility]) Hospitalist Tres Knutson REPORT #: [id number] REPORT STATUS: Signed DATE: 01/09/22 TIME: 09 PATIENT: MAURICIO FALL UNIT #: [id number] ROOM #: NC.5201 BED: 1 : 80 AGE: 41 SEX: M ATTEND: Gopal Lopes MD ADM AUTHOR: Deborah Retana ATTENTION *EDITS and/or ADDENDA must be made in Patient [facility] for this note. * * Edits and ammendments created in [employer] are not visible * * in Patient Keeper or the legal medical record ([facility]). * -- CO-SIGNATURE -- COMMENTS: Agree with plan and findings of SHAWN Signed in PatientKeeper by JAMIN YBARRA MD on 01/11/22 at 15:22 -- HISTORY -- ADMISSION DATE: 2022-01-09 PRIMARY CARE PROVIDER: Primary or Family Physician, No CHIEF COMPLAINT: Abdominal pain and N/V/D HPI: 41 y/o M with PMHx of HTN, GERD, SVT, COVID-19, and precancerous colon polyps presented as a direct transfer from [facility] ER with c/o diffuse abd pain (greatest in RUQ) x 4 days. Josh cribes the pain as crampy, burning, and sharp with no aggravating factors a nd temporarily mildly alleviated by IV Morphine. Reports associated na usea, vomiting x 6 episodes (last emesis last night), and diarrhea (last epi sode yesterday AM). Denies fever, chills, CP, palpitations, SOB, hematochez ia, melena, hematemesis, urinary symptoms, or any other complaints. At ou tside ER, CT Abd/Pelvis w/o contrast showed "Loops of bowel w/o wall thickening or obstruction. Thickening of wall of cecum w/ inflamma tory and edematous changes adjacent to cecum. Small lymph nodes also identified. Findings c/w typhli tis. No free air, free fluid, or fluid collection." Labs essentially u nremarkable. Admitted for further eval and mgmt with GI and General Surgery consultatio ns placed by ER. PAST MEDICAL HISTORY: HTN GERD SVT COVID-19 Precancerous colon polyps PAST SURGICAL HISTORY: Cholecystectomy (19 yrs ago) Appendectomy (19 yrs ago) Colonoscopy with 18 precancerous polyps removed (last CSP was 2 yrs ago) Right hand repair FAMILY HISTORY: Father: Colon [place] with APC gene mutation Sister: APC gene mutation (pt has not been teste d himself) -SOCIAL HISTORY- -TOBACCO USE- DETAILS/COMMENTS: Former smoker of 1/2-1 PPD (quit 1 month ago) -ALCOHOL USE- DETAILS/COMMENTS: Occasionally -DRUG USE- DETAILS/COMMENTS: Denies MARITAL STATUS: LIVING SITUATION: Lives at home with ADDITIONAL SOCIAL HISTORY: Independent with all ADLs -- ALLERGIES/HOME MEDS -- ALLERGIES: ketorolac (Unknown - Allergy) -- SUBJECTIVE -- -REVIEW OF SYSTEMS- GENERAL: Negative for fever, malaise, fatigue. EYES: Negative for blurry vision. No diplopia. EARS/NOSE/THROAT: Negative for sore throat. No o talgia. No rhinorrhea. BREAST: Negative for change in shape, swelling, masses, nipple discharge, pain, skin changes. RESPIRATORY: Negative for dyspnea or wheeze. No cough. CARDIOVASCULAR: Negative for chest pain or palpi tations. No extremity swelling. GASTROINTESTINAL: Positive for abdominal pain an d N/V/D. GENITOURINARY: Negative for dysuria, frequency, or urgency. No gross hematuria. MUSCULOSKELETAL: Negative for joint stiffness, p ain, or arthralgias. SKIN: Negative for rashes. No pruritus. NEUROLOGICAL: Negative for headache. No vertigo. Denies paresthesias. PSYCHIATRIC: Negative for specific complaints. -- OBJECTIVE -- VITALS (01/08 17:24 - 01/09 17:24): Temperature F: 98.9 Temperature C: 36.8 (36.8 - 36.9) Temperature source: Oral Pulse Rate 73 (69 - 76) Respiratory rate: 20 (18 - 20) BP: 114/70 (111/64 - 119/78) Blood pressure source: Monitor -EXAM- OTHER: General: Well developed, well nourished, in no apparent distress. Head: Normocephalic, atraumatic. Eyes: PERRL, EOM intact, conjunctiva and sclera clear. Ears: grossly normal hearing. Nose: No deformity, no discharge, no inflammation, no lesions. Mouth: Oropharynx without deformities or lesions, normal mucosa.. Neck: Supple. Chest: Grossly normal appearance. Lungs: Clear bilaterally with normal respiratory effort. Heart: Regular rate and rhythm. Abdomen: Soft, diffuse abd TTP (greatest in RUQ). Musculoskeletal: No deformity, joint ROM grossly normal. Extremities: No clubbing, no cyanosis, no edema. Neurological: No focal deficits, cranial nerves II-XII grossly intact, normal sensation. Pulses: Pulses normal in all extremities. Skin: Warm, dry. Psychiatric: Alert and oriented to time, person, place. Normal mood and affect, intact j udgment and insight. -- DATA -- LABS LIP (01/09/22 09:11) LIPASE 28 L HGBA1C - GLYCOSYLATED HGB (01/09/22 09:11) GLYCOSYLATED HEMOGLOBIN (HA1C) 5.4 MAG (01/09/22 09:11) MAGNESIUM 1.9 BASIC METABOLIC PANEL (01/09/22 09:11) SODIUM 139 POTASSIUM 3.5 CHLORIDE 106 CARBON DIOXIDE 26 ANION GAP 10.5 GLUCOSE 90 BLOOD UREA NITROGEN 11 GLOMERULAR FILTRATION RATE >=60 max estimate CREATININE 1.0 BUN/CREATININE RATIO 11.0 L CALCIUM 8.6 LIVER FUNCTION PANEL (01/09/22 09:11) TOTAL PROTEIN 6.4 ALBUMIN 3.1 L GLOBULIN 3.3 BILIRUBIN TOTAL 0.4 BILIRUBIN DIRECT 0.1 BILIRUBIN INDIRECT 0.3 SGOT/AST 22 SGPT/ALT 43 ALKALINE PHOSPHATASE 65 LACTIC ACID (01/09/22 09:11) LACTIC ACID 0.6 PHOS (01/09/22 09:11) PHOSPHOROUS 3.0 LIPID PROFILE (CORONARY RISK) (01/09/22 09:11) TRIGLYCERIDES 110 CHOLESTEROL 128 CHOLESTEROL/HDL RATIO 4 HDL CHOLESTEROL 30 L LIPOPROTEIN LDL 82 CBC W/AUTO DIFF (01/09/22 09:11) WHITE BLOOD CELL 5.4 RED BLOOD CELL 4.10 L HEMOGLOBIN 12.5L L HEMATOCRIT 37.0L L MEAN CELL VOLUME 90 MEAN CELL HGB 30.5 MEAN CELL HGB CONCENTRATION 33.8 RED CELL DISTRIBUTION WIDTH 12.5 PLATELET COUNT 154 MEAN PLATELET VOLUME 9.9 NEUTROPHIL % 61.0 IMMATURE GRANULOCYTE % 0.6 LYMPHOCYTE % 27.1 MONOCYTE % 10.0 EOSINOPHIL % 1.1 BASOPHIL % 0.2 NUCLEATED RBC % 0.0 NEUTROPHIL # 3.28 IMMATURE GRANULOCYTE # 0.030 LYMPHOCYTE # 1.46 L MONOCYTE # 0.54 EOSINOPHIL # 0.06 BASOPHIL # 0.01 NUCLEATED RBC # 0.000 COVID 19 INH AG (01/09/22 06:47) COVID 19 INHOUSE AG NEGATIVE TEST RESULTS US ABDOMEN LTD (01/09/22 12:15) IMPRESSION: 1. No acute findings. 2. Moderate hepatic steatosis 3. Surgically absent gallbladder. -- ASSESSMENT AND PLAN -- GENERAL ASSESSMENT: Abdominal pain Nausea and vomiting - CT A/P w/o contrast at OSH showed findings c/w typhlitis - US RUQ neg for acute findings - f/u repeat CT A/P w/ contrast as abd pain not c/w typhlitis - NPO until GI eval - Start MIVF: NS at 100 cc/h - Start Zosyn - Bentyl, PRN analgesics/antiemetics - GI and General Surgery consulted Diarrhea - f/u stool studies - Monitor for improvement GERD - Pepcid BID HTN - Resume home meds when reconciled - PRN IV Hydralazine CONSULTANTS: GI General Surgery ADDITIONAL COMMENTS: DVT PPx: SCD GI PPx: Pepcid CODE STATUS: Full Plan: d/w pt, RN, Dr. De La Garza Dispo: Pending hospital course -- QUALITY -- -MEDICATIONS- - Unable to obtain an accurate home med ication list at this time. The patient is in an urgent or emergent medical situ ation where time is of the essence. To delay treatment would jeopardize the pat ient's health status on the day of the encounter. -VTE PROPHYLAXIS -GENERAL- Yes TYPE OF VTE mechanical compression device -- ATTESTATION -- TIME SPENT ON PATIENT CARE: - Direct 60 minutes - > 50% of time spent on Counseling/Care Coordi nation CARE ACTIVITIES / CARE COORDINATION: - I have reviewed the history and repeated the moncada elements - I have seen and examined this patient - I have discussed the thomas ent's condition with other members of the care team Signed in PatientKeeper by Deborah Retana 01/09/22 at 18:06 Cosigned by JAMIN YBARRA MD on 01/11/22 at 15:22 ATTENTION *EDITS and/or ADDENDA must be made in Patient Ke eper for this note. * * Edits and ammendments created in [employer] are not visible * * in Patient Keeper or the legal medical record ([facility]PF). * [facility] #: [id number] END OF REPORT 2022-01-09 06:27:00-00:00 [facility] ([facility]) EMERGENCY PROVIDER REPORT REPORT#:[id number] REPORT STATUS: Signed DATE:01/09/22 TIME: 626 PATIENT: MAURICIO FALL UNIT #: [id number] [address] AGE: 41 SEX: M PCP PHYS: No Primary or Family Ph ysician SERVICE AUTHOR: Rell Rousseau MD * ALL edits or amendments must be made on the [employer]/computer document * HPI-General Illness General Initial Greet Date/Time 01/09/22 0555 Presentation Chief Complaint Abdominal pain Hx Obtained From Patient Sudden in Onset? No Onset Occurred Days ago (3) Symptom Duration Since onset Progression since Onset Gradually worsening Caused by No trauma by history Location Abdomen Quality Painful Radiation Does not radiate. Severity: Onset Mild Severity: Current Moderate Associated with Denies: Cough, Fever. Associated Other Pt denies other symptoms Exacerbated by Nothing Relieved by Nothing Free Text HPI Notes Free Text HPI Notes The patient is a 41-year-old male who presents complaints of abdominal pain for 3 days. He reports pain in t he right side of his abdomen which has been getting worse. He also reports diarrhea, no blood in it. No fever or chills. He denies sick contacts. Denies any history of similar symptoms. He does report a history of colon polyps and says his last colono scopy was a few years ago. He was seen at an outside ER wh ere lab work was essentially normal, CT scan showed typhlitis, and he was transf erred here for higher level of care/GI consultation. Review of Systems ROS Statements All systems rev neg except as marked. Past Medical History - Adult Stated Complaint COLITIS CONS ACCEPTED DR Edi WAYNE Allergies Coded Allergies: ketorolac (From TORADOL) (UNKNOWN 01/09/22) Home Medications Reported Medications Amlodipine (Norvasc) 5 MG PO DAILY Omeprazole Er 40 MG PO BID Smoking status for patients 13 years old or olde r: Never Smoker Physical Exam Vital Signs Vital Signs First Documented: Result Date Time Pulse Ox 97 01/09 0552 B/P 112/78 01/09 0552 B/P Mean 89 01/09 0552 O2 Delivery Room air 01/09 0552 Temp 37.2 01/09 0552 Pulse 73 01/09 0552 Resp 18 01/09 0552 Last Documented: Result Date Time Pulse Ox 100 01/09 0651 B/P 119/70 01/09 0651 B/P Mean 86 01/09 0651 O2 Delivery Room air 01/09 0651 Pulse 76 01/09 0651 Resp 18 01/09 0651 Temp 37.2 01/09 0552 Review of Vital Signs Reviewed, Vital signs norm al Basic Physical Exam Basic PE GEN: Well appearing /NAD, HEAD: Atraumatic/NC, EYES: PERRL, conj clear, ENT: Membranes moist, NECK: Supple, RESP: No res p distress, CV: Reg rate rhythm, EXT: No gross abnormality, SKIN: No rash es, warm/dry, NEURO: alert oriented, NEURO: gross movement NL, PSYCH: NL th ought content Physical Exam Abdomen/GI Abdomen/GI Atraumatic, Soft, No rebound, R side d abd ttp with guarding Interpretation Diagnostics Lab Results Interpretation Results Laboratory Tests: 01/09 647 Serology SARS-CoV-2 Ag (Rapid) (Negative) NEGATIVE Re-Evaluation MDM Free Text MDM Notes Free Text MDM Notes GI consultation accepted by . Admission a ccepted by the overnight [facility] SENIOR OPERATIONS ANALYST. ED Course Medication(s) Ordered Medication(s) Ordered: Central Nervous System Agents Sig/Scar Start time Last Medication Dose Route Stop Time Status Admin Morphine Sulfate 4 MG X1ED STA 01/10 620 DC IV 01/09 0621 0630 Gastrointestinal Drugs Sig/Scar Start time Last Medication Dose Route Stop Time Status Admin Ondansetron HCl 4 MG X1ED STA 01/09 06 DC IV 01/09 0621 0629 Patient Discharge Departure Vital Signs/Condition Vital Signs First Documented: Result Date Time Pulse Ox 97 01/09 0552 B/P 112/78 01/09 0552 B/P Mean 89 01/09 0552 O2 Delivery Room air 01/09 0552 Temp 37.2 01/09 0552 Pulse 73 01/09 0552 Resp 18 07/30 0552 Last Documented: Result Date Time Pulse Ox 100 01/09 651 B/P 119/70 01/09 651 B/P Mean 86 01/09 651 O2 Delivery Room air 01/09 651 Pulse 76 01/09 651 Resp 18 01/09 0651 Temp 37.2 01/09 05 All vital signs available at the time of this en try have been reviewed. Clinical Impression Clinical Impression Primary Impression: Typhlitis Disposition Decision Admit Admit Physician Name Gopal Lopes MD )( Admission Accepts Yes )( Accepted Time 06 )( Accepted Date 01/09/22 Electronically Signed by Rell Rousseau MD on at 1411 RPT #:[id number] END OF REPORT
[2023-01-08 03:53] LABS: Absolute Lymphocytes (CBC) 2.3 K/uL (0.7-4.9); Hematocrit 39.2 % (39.6-49.0); Lymphocytes % 40.6 % (15.3-44.8); MCV 89.2 fL (80-100); MPV 7.7 fL (7.6-11.3); RBC Red Blood Cell Count 4.39 M/uL (4.33-5.43)
[2023-01-08] MEDS ORDERED: NITROGLYCERIN 0.4 MG/TAB SL ONE (03:54)
[2023-01-08 04:13] LABS: ALT/SGPT 63 U/L (16-61); AST/SGOT 21 U/L (15-37); Albumin 3.6 g/dL (3.4-5.0); Alkaline Phosphatase 72 U/L (45-117); BUN Blood Urea Nitrogen 11 mg/dL (7-18); Bicarbonate 25 mEq/L (21-32); Bilirubin Total 0.3 mg/dL (0.2-1.0); Glomerular Filtration Rate 107 ml/min (=/>90); Glucose Level 105 mg/dL (74-106); Lipase 14 U/L (13-75); NT PRO-BNP 7 pg/mL (<125); Potassium 3.2 mEq/L (3.5-5.1); Protein, Total 6.9 g/dL (6.4-8.2); Sodium Level 142 mEq/L (136-145); Troponin High Sensitivity 6.4 pg/mL (<58.9)
[2023-01-08 04:23] LABS: Bilirubin Direct < 0.1 mg/dL (0-0.2); Bilirubin Indirect, Calculated ND mg/dL (0.2-0.8)
--- NOTE | 2023-01-08 06:41 | ER ---
Nurse's Notes [facility] Name: Sergo Bliss Sr Age: 42 yrs Sex: Male : 1980 Arrival Date: 01/08/2023 Time: 03:20 Bed 7 Private MD: Diagnosis: Chest pain, unspecified Presentation: 01/08 03:25 Chief complaint: EMS states: He stated that he started having intense left sided chest kd3 pain that radiates to the arm and come and goes in waves. Family stated that he looked like he had a syncopal episode and maybe had a seizure. When EMS arrived he seemed confused but seems more alert and oriented on arrival. Pt does have a history of AFib and has drank 6 beers last night. The chest pain has happened before when he drank beers. Pt was given a total of 100 mcg of fentanyl and 324 of aspirin in route. Coronavirus screen: Vaccine status: Patient reports receiving the 2nd dose of the covid vaccine. Ebola Screen: No symptoms or risks identified at this time. Initial Sepsis Screen: Does the patient meet any 2 criteria? No. Patient's initial sepsis screen is negative. Does the patient have a suspected source of infection? No. Patient's initial sepsis screen is negative. Risk Assessment: Do you want to hurt yourself or someone else? Patient reports no desire to harm self or others. Onset of symptoms was January 08, 2023. 03:25 Method Of Arrival: EMS: [facility] kd3 03:25 Acuity: LAMAR 3 kd3 Triage Assessment: 03:29 General: Appears uncomfortable, Behavior is calm, cooperative. Pain: Complains of pain kd3 in anterior aspect of left upper chest. Cardiovascular: Patient's skin is warm and dry. Historical: - Allergies: 03:29 Toradol; kd3 - Home Meds: 03:29 amlodipine 5 mg tab 1 tab once daily [Active]; omeprazole 40 mg Oral cpDR 1 cap 2 times kd3 per day [Active]; - PMHx: 03:29 Atrial fibrillation; GERD; Hypertension; kd3 - PSHx: 03:29 Cholecystectomy; right hand; kd3 - Immunization history:: Adult Immunizations up to date. - Social history:: Smoking status: Patient reports the use of cigarette tobacco products, smokes one-half pack cigarettes per day. - Family history:: not pertinent. Screenin:04 [facility] ED Fall Risk Assessment (Adult) History of falling in the last 3 months, kd3 including since admission No falls in past 3 months (0 pts) Confusion or Disorientation No (0 pts) Intoxicated or Sedated No (0 pts) Impaired Gait No (0 pts) Mobility Assist Device Used No (0 pt) Altered Elimination No (0 pt) Score/Fall Risk Level 0 - 2 = Low Risk Maintained a safe environment. Abuse screen: Denies threats or abuse. Denies injuries from another. Nutritional screening: No deficits noted. Tuberculosis screening: No symptoms or risk factors identified. Assessment: 06:03 General: Appears in no apparent distress. comfortable, Behavior is calm, cooperative, kd3 PT seen resting in bed, eyes closed. . Pain: Denies pain. Pain: Pain radiates to chest and left arm. Neuro: Level of Consciousness is awake, alert, obeys commands, Oriented to person, place, time, situation. Cardiovascular: Patient's skin is warm and dry. 06:05 Pain: Pain began gradually. kd3 Vital Signs: 03:25 Weight 93.89 kg; Height 5 ft. 10 in. ; kd3 03:47 BP 111 / 67; Pulse 92; Resp 19; Temp 98.2(TE); Pulse Ox 95% on R/A; kd3 05:40 BP 96 / 62; Pulse 97; Resp 16; Pulse Ox 98% on R/A; kd3 07:17 BP 102 / 53; Pulse 82; Resp 19; Pulse Ox 99% on R/A; kd3 03:25 Body Mass Index 29.70 (93.89 kg, 177.8 cm) kd3 ED Course: 03:25 Patient arrived in ED. kd3 03:29 Triage completed. kd3 03:29 Arm band placed on right wrist. kd3 03:30 Dennis Martinez MD is Attending Physician. rt 03:33 Kathia Vasquez RN is Primary Nurse. kd3 03:43 XRAY Chest (1 view) In Process Unspecified. EDMS 03:48 No provider procedures requiring assistance completed. Maintain EMS IV. Dressing kd3 intact. Good blood return noted. Site clean \T\ dry. Gauge \T\ site: 20 G left A/C. Patient maintains SpO2 saturation greater than 95% on room air. 03:49 Basic Metabolic Panel Sent. kd3 03:49 CBC with Diff Sent. kd3 03:49 LFT's Sent. kd3 03:49 Magnesium Sent. kd3 03:49 NT PRO-BNP Sent. kd3 03:49 Troponin HS Sent. kd3 03:49 ETOH Level Sent. kd3 03:49 Lipase Sent. kd3 06:05 Patient has correct armband on for positive identification. Provided Education on: . kd3 Client placed on continuous cardiac and pulse oximetry monitoring. NIBP monitoring applied. library monitor on. 07:16 IV discontinued, intact, bleeding controlled, No redness/swelling at site. Pressure kd3 dressing applied. Administered Medications: 03:47 Drug: Nitroglycerin Sublingual 0.4 mg Route: Sublingual; kd3 03:55 Drug: Nitroglycerin Sublingual 0.4 mg Route: Sublingual; kd3 07:17 Follow up: Response: No adverse reaction; Pain is decreased kd3 Medication: 06:03 VIS not applicable for this client. kd3 Outcome: 06:41 Discharge ordered by . rt 07:16 Discharged to home ambulatory. kd3 07:16 Condition: stable 07:16 Discharge instructions given to patient, family, Instructed on discharge instructions, follow up and referral plans. Demonstrated understanding of instructions, follow-up care. 07:17 Patient left the ED. kd3 Signatures: Dispatcher [employer] Kathia Brown RN RN kd3 Dennis Martinez MD MD rt
--- NOTE | 2023-01-08 06:41 | EDPHYS ---
Physician Documentation [facility] Name: Sergo Bliss Sr Age: 42 yrs Sex: Male : 1980 Arrival Date: 01/08/2023 Time: 03:20 Bed 7 Private MD: ED Physician Dennis Martinez HPI: 01/08 05:39 This 42 yrs old Male presents to ER via EMS with complaints of Chest Pain. rt 05:39 Patient presents to the ED with chest pain. The chest pain has been present off and on rt for about a week now. It worsened tonight after he drank a large amount of beers. Patient does have a history of A-fib, reportedly had attempted ablation procedure. Denies any history of coronary disease. Denies other acute complaints at this time. Symptoms are moderate severity, no other aggravating or alleviating factors.. Historical: - Allergies: 03:29 Toradol; kd3 - Home Meds: 03:29 amlodipine 5 mg tab 1 tab once daily [Active]; omeprazole 40 mg Oral cpDR 1 cap 2 times kd3 per day [Active]; - PMHx: 03:29 Atrial fibrillation; GERD; Hypertension; kd3 - PSHx: 03:29 Cholecystectomy; right hand; kd3 - Immunization history:: Adult Immunizations up to date. - Social history:: Smoking status: Patient reports the use of cigarette tobacco products, smokes one-half pack cigarettes per day. - Family history:: not pertinent. ROS: 05:39 Constitutional: Negative for fever, chills, and weight loss, Eyes: Negative for injury, rt pain, redness, and discharge, Respiratory: Negative for shortness of breath, cough, wheezing, and pleuritic chest pain, Abdomen/GI: Negative for abdominal pain, nausea, vomiting, diarrhea, and constipation, MS/Extremity: Negative for injury and deformity, Skin: Negative for injury, rash, and discoloration, Neuro: Negative for headache, weakness, numbness, tingling, and seizure, Psych: Negative for depression, anxiety, suicide ideation, homicidal ideation, and hallucinations. 05:39 Cardiovascular: Positive for chest pain, palpitations. Exam: 05:39 Constitutional: This is a well developed, well nourished patient who is awake, alert, rt and in no acute distress. Head/Face: Normocephalic, atraumatic. Chest/axilla: Normal chest wall appearance and motion. Nontender with no deformity. No lesions are appreciated. Cardiovascular: Regular rate and rhythm with a normal S1 and S2. No gallops, murmurs, or rubs. Normal PMI, no JVD. No pulse deficits. Respiratory: Lungs have equal breath sounds bilaterally, clear to auscultation and percussion. No rales, rhonchi or wheezes noted. No increased work of breathing, no retractions or nasal flaring. Abdomen/GI: Soft, non-tender, with normal bowel sounds. No distension or tympany. No guarding or rebound. No evidence of tenderness throughout. Skin: Warm, dry with normal turgor. Normal color with no rashes, no lesions, and no evidence of cellulitis. MS/ Extremity: Pulses equal, no cyanosis. Neurovascular intact. Full, normal range of motion. Neuro: Awake and alert, GCS 15, oriented to person, place, time, and situation. Cranial nerves II-XII grossly intact. Motor strength 5/5 in all extremities. Sensory grossly intact. Cerebellar exam normal. Normal gait. Psych: Awake, alert, with orientation to person, place and time. Behavior, mood, and affect are within normal limits. 05:39 ECG was reviewed by the Attending Physician. Vital Signs: 03:25 Weight 93.89 kg; Height 5 ft. 10 in. ; kd3 03:47 BP 111 / 67; Pulse 92; Resp 19; Temp 98.2(TE); Pulse Ox 95% on R/A; kd3 05:40 BP 96 / 62; Pulse 97; Resp 16; Pulse Ox 98% on R/A; kd3 07:17 BP 102 / 53; Pulse 82; Resp 19; Pulse Ox 99% on R/A; kd3 03:25 Body Mass Index 29.70 (93.89 kg, 177.8 cm) kd3 MDM: 03:30 Patient medically screened. rt 07:00 Differential diagnosis: Chest wall pain, dysrhythmia, acute coronary syndrome, rt pneumonia, pneumothorax. 07:04 HEART Score: History: Moderately Suspicious (1), ECG: Non specific repolarization rt disturbance / LBTB / PM (1), Age: < or = 45 years (0), Risk Factors: 1 or 2 risk factors (1), Troponin: < or = 1 x Normal Limit (0), Total Score = 3. The patient was not given aspirin in the Emergency Department. Patient reports taking aspirin within the past 24 hours. Data reviewed: vital signs, nurses notes, lab test result(s), EKG, radiologic studies. Consideration of Admission/Observation Escalation of care including admission/observation considered. 2 negative troponins, low heart score, symptoms are not consistent with an acute coronary syndrome. He has had an ablation in the past, however, he has no stents or history of coronary disease.. I considered the following discharge prescriptions or medication management in the emergency department Medications were administered in the Emergency Department. See MAR. Test considered but Not performed: CT: Low suspicion for PE, CT angiogram not indicated. Care significantly affected by the following chronic conditions: Atrial fibrillation, hypertension. Response to treatment: the patient's symptoms have resolved after treatment. 01/08 03:30 Order name: Basic Metabolic Panel; Complete Time: 04:25 rt 01/08 03:30 Order name: CBC with Diff; Complete Time: 04:11 rt 01/08 03:30 Order name: LFT's; Complete Time: 04:25 rt 01/08 03:30 Order name: Magnesium; Complete Time: 04:25 01/08 03:30 Order name: NT PRO-BNP; Complete Time: 04:25 01/08 03:30 Order name: Troponin HS; Complete Time: 04:25 rt 01/08 03:30 Order name: Lipase; Complete Time: 04:25 rt 01/08 03:37 Order name: ETOH Level; Complete Time: 04:25 01/08 05:18 Order name: Troponin High Sensitivity; Complete Time: 06:26 01/08 03:30 Order name: XRAY Chest (1 view) rt 01/08 03:30 Order name: EKG; Complete Time: 03:31 01/08 03:30 Order name: Cardiac monitoring; Complete Time: 03:48 01/08 03:30 Order name: EKG - Nurse/Tech; Complete Time: 03:48 01/08 03:30 Order name: IV Saline Lock; Complete Time: 03:48 rt 01/08 03:30 Order name: Labs collected and sent; Complete Time: 03:48 rt 01/08 03:30 Order name: O2 Per Protocol; Complete Time: 03:49 rt 01/08 03:30 Order name: O2 Sat Monitoring; Complete Time: 03:49 rt EC:39 Rate is 93 beats/min. Rhythm is regular, Sinus Rhythm with Occasional PVCs, Right rt bundle branch block. QRS [place] is Normal. NV interval is normal. QRS interval is normal. QT interval is normal. Administered Medications: 03:47 Drug: Nitroglycerin Sublingual 0.4 mg Route: Sublingual; kd3 03:55 Drug: Nitroglycerin Sublingual 0.4 mg Route: Sublingual; kd3 07:17 Follow up: Response: No adverse reaction; Pain is decreased kd3 Disposition Summary: 01/08/23 06:41 Discharge Ordered Location: Home rt Problem: new rt Symptoms: are resolved rt Condition: Stable rt Diagnosis - Chest pain, unspecified rt Followup: rt - With: Private Physician - When: 2 - 3 days - Reason: Discharge Instructions: - Discharge Summary Sheet rt - Nonspecific Chest Pain, Adult rt Forms: - Medication Reconciliation Form rt - Thank You Letter rt - Antibiotic Education rt - Prescription Opioid Use rt - Patient Portal Instructions rt Signatures: Dispatcher [employer] Kathia Brown RN RN kd3 Dennis Martinez MD MD rt
[2023-01-08 07:22] VITALS: TEMP 98.2
[2023-01-08 07:26] VITALS: BP 102/53; O2SAT 99
--- NOTE | 2023-01-09 13:13 | EKG ---
Test Date: 2023-01-08 Test Time: 03:36:43 Airplane Technician: YARELIS MEASUREMENT RESULTS: Intervals: Rate: 93 MT: 170 QRSD: 120 QT: 368 QTc: 457 [place]: P: 68 MT: 170 QRS: 69 T: 27 INTERPRETIVE STATEMENTS: Sinus rhythm with premature supraventricular complexes Right bundle branch block Abnormal ECG Compared to ECG 10/19/2021 02:42:17 Atrial premature complex(es) now present Right bundle-branch block now present Sinus tachycardia no longer present Myocardial infarct finding no longer present Electronically Signed On 01-09-23 13:11:02 CDT by Alcon Rubi
--- NOTE | 2023-01-09 16:31 | RAD REPORT ---
EXAM DESCRIPTION: XR Chest, 1 View CLINICAL HISTORY: The patient is 42 years old and is Male; CHEST PAIN TECHNIQUE: Frontal view of the chest. COMPARISON: No relevant prior studies available. FINDINGS: Lungs: Unremarkable. No consolidation. Pleural space: Unremarkable. No pneumothorax. Heart: Unremarkable. Mediastinum: Unremarkable. Bones/joints: Unremarkable. IMPRESSION: No acute findings in the chest. Electronically signed by: Vishal Hall MD 01/08/2023 3:55 AM CDT Due to temporary technical issues with the PACS/Fluency reporting system, reports are being signed by the in house radiologists without review as a courtesy to insure prompt reporting. The interpreting radiologist is fully responsible for the content of the report.
== END 2023-01-08 07:17 | disposition home or self-care (01) ==
LOC: ER 03:20
DX: R07.9 Chest pain, unspecified (principal)
CPT/HCPCS: 36415; 71045; 80048; 80076; 82077; 83690; 83735; 83880; 84484; 85025; 93005; 99285

== ENCOUNTER 2024-08-25 22:39 | Emergency (ER) | payer SELFPAY ==
--- OUTSIDE RECORDS SUMMARY | 2024-08-25 22:44 | XMS REPORT | Continuity of Care Document ---
Author Name Unknown Address [address] [facility] [address] [place] [address] [facility] Address [address] [facility]. 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 Role Phone BRANDON MORRIS JR Primary Care Physician Gopal Ponce Attending Clinician Unavailable CARRIE RIVAS Attending Clinician Unavailable LEXY GALLOWAY Attending Clinician Unavailable Lexy Galloway NP Attending Clinician [phone] RAYA CONNORS Attending Clinician Unavailable RAYA CONNORS Attending Clinician Unavailable DYAN LOPEZ Attending Clinician Unavailab Dyan Wolf DO Attending Clinician [phone] SRIDEVI SEGAL Attending Clinician Unavailab Héctor Mejia Attending Clinician [phone] Sridevi Segal MD Attending Clinician [phone] FELIX MEYERS Attending Clinician Unavailable Edward Yung Attending Clinician [phone] Felix Meyers MD Attending Clinician +28 HOLA GOODSON Attending Clinician Unavailable Hola Goodson NP Attending Clinician + 03 OSEAS MICHELLE Attending Clinician Unavailable Oseas Michelle MD Attending Clinician + 04 Doctor Unassigned, [place] Attending Clinician U guanaco Chandra MD, Rosas [place] Attending Clinician [phone] Silvino Zuluaga Attending Clinician + SILVINO GALVAN Attending Clinician Unavailable Chelo Schmitz Attending Clinician + [phone] Segundo Shaffer Attending Clinician +11 SEGUNDO MARIN Attending Clinician Unavailable Gopal Lopes Admitting Clinician Unavailable RAYA CONNORS Admitting Clinician Unavailable DYAN LOPEZ Admitting Clinician Unavailab HÉCTOR Sarkar Admitting Clinician Unavailable EDWARD HANKINS Admitting Clinician Unavailable SRIDEVI SEGAL Admitting Clinician Unavailab HOLA Krsihnan Admitting Clinician Unavailable OSEAS MICHELLE Admitting Clinician Unavailable SEGUNDO MARIN Admitting Clinician Unavailable Payers Payer Name Policy Type Policy Number Effective Date Expirati on Date Source [facility] - OUT OF STATE [id number] 2019 00:00:00 Problems Condition Name Condition Details Condition Category Status Onset Date Resolution Date Last Treatment Date Treating Clinician Comments Source 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 Disease Active 06-19 00:00: 00 [facility] HTN (hypertens ion) HTN (hypertens ion) Disease Active 01-31 00:00: 00 [facility] Chest pain at rest Chest pain at rest Disease Active 01-31 00:00: 00 [facility] No known active problems No known active problems Disease [facility] Allergies, Adverse Reactions, Alerts Allergy Name Allergy Type Status Severity Reaction(s) Onset Date Inactive Date Treating Clinician Comments Source ketorola c DA Active U UNKNOWN 01-09 00:00: 00 [facility] [place] Ketorola c Trometha mine Propensi ty to adverse reaction s Active Anxiety 12-10 00:00: 00 [facility] KETOROLA C TROMETHA MINE DRUG INGREDI Active Anxiety 12-10 00:00: 00 [facility] Social History Social Habit Start Date Stop Date Quantity Comments Source History of tobacco use Chews Tobacco [facility] History SDOH Alcohol Frequency [facility] History SDOH Alcohol Std Drinks [facility] History SDOH Alcohol Binge [facility] Gender [facility] Sexual [facility] History of Social function 2023-10-24 00:00:00 2023-10-24 00:00:00 [facility] Alcoholic beverage intake 2023-10-24 00:00:00 2023-10-24 00:00:00 Current drinker of alcohol (finding) [facility] Alcohol intake 2023-05-25 00:00:00 2023-05-25 00:00:00 Current drinker of alcohol (finding) [facility] Exposure to SARS-CoV-2 (event) 2022-10-04 00:00:00 2022-10-14 20:10:00 Not sure [facility] Tobacco use and exposure 2021-01-09 00:00:00 2021-01-09 00:00:00 User of smokeless tobacco [facility] Alcohol Comment 2021-01-09 00:00:00 2021-01-09 00:00:00 Occasionally [facility] Sex Assigned At 1980 00:00:00 1980 00:00:00 [facility] Smoking Status Start Date Stop Date Source Tobacco smoking consumption unknown [facility] Smokes tobacco daily 2021-01-09 00:00:00 [facility] Medications Ordered Medication Name Filled Medication Name Start Date Stop Date Current Medication? Ordering Clinician Indication Dosage Frequency Signature (SIG) Comments Components Source dexamethaso ne sod phos PF injection 10 mg 06-19 19:15: 00 06-19 19:18 :00 No 10mg 10 mg, Intramuscu lar, ONCE, 1 dose, On Tue06/19/24 at 1315, 1 mL [facility] HYDROcodone -acetaminop hen (NORCO 5) tablet 1 tablet 06-19 18:45: 00 06-19 18:53 :00 No 1{tbl} 1 tablet, Oral, ONCE, 1 dose, On Tue06/19/24 at 1245, ISMAEL [facility] sodium chloride (NS) injection 5 mL 06-19 17:45: 52 Yes 5mL 5 mL, Intravenou s, PRN, Starting on Tue06/19/24 at 1145, Until Discontinu ed, Routine, IV line flushing [facility] cyclobenzap rine 5 mg tablet 06-19 00:00: 00 Yes [id number] 5mg Take 1 tablet by mouth 3 (three) times daily as needed for Muscle Spasms. [facility] methylPREDN ISolone 4 mg tablets 06-19 00:00: 00 Yes [id number] Take by mouth SEE-INSTRU CTIONS. follow package directions [facility] methylPREDN ISolone 4 mg tablets 2023-06 00:00: 00 06-19 00:00 :00 No [id number] Take by mouth SEE-INSTRU CTIONS. follow package directions [facility] traMADoL 50 mg tablet 2023-06 00:00: 00 06-19 00:00 :00 No [id number] 50mg Take 1 tablet by mouth every 6 (six) hours as needed for Pain (scale 4-6). Indication s: acute pain [facility] NaCl 0.9% (NS) bolus infusion 1,000 mL 10-23 09:15: 00 10-23 09:05 :00 No 1000mL at 999 mL/hr, 1,000 mL, IV Infusion, ONCE, 1 dose, On Tue10/24/23 at 0415, ISMAEL [facility] dexAMETHaso ne (DECADRON) tablet 8 mg 2022-06- 03:45: 00 05-26 02:54 :00 No 8mg 8 mg, Oral, ONCE, 1 dose, On Tue05/25/23 at 2145, Routine [facility] methocarbam oL 500 mg tablet 2022-06 2-13 00:00: 00 Yes [id number] 500mg Take 1 tablet by mouth 4 (four) times daily as needed for Pain (scale 7-10). [facility] NaCl 0.9% (NS) bolus infusion 1,000 mL 2022-06 08:15: 00 04-23 09:58 :00 No 1000mL at 999 mL/hr, 1,000 mL, IV Infusion, ONCE, 1 dose, On Tue04/23/23 at 0215, STAT [facility] maalox:diph enhydrAMINE :lidocaine 2 % viscous 1:1:1 ([facility]) oral suspension 15 mL 01-31 08:45: 00 01-31 08:34 :00 No 15mL 15 mL, Oral, ONCE, 1 dose, On Tue01/31/23 at 0345, Routine [facility] famotidine (PEPCID (PF)) injection 20 mg 01-31 08:30: 00 01-31 08:34 :00 No 20mg 20 mg, Slow IV Push, ONCE, 1 dose, On Tue01/31/23 at 0330, ISMAEL [facility] iopamidol (ISOVUE 370-500 mL) injection 100 mL 01-31 08:30: 00 01-31 07:44 :00 No [id number] 100mL 100 mL, Intravenou s, ONCE, 1 dose, On Tue01/31/23 at 0330, Routine [facility] NaCl 0.9% (NS) bolus infusion 1,000 mL 01-31 07:30: 00 01-31 10:58 :00 No 1000mL at 999 mL/hr, 1,000 mL, IV Infusion, ONCE, 1 dose, On Tue01/31/23 at 0230, ISMAEL [facility] morpHINE (4 mg/mL) injection 4 mg 01-31 07:15: 00 01-31 07:03 :00 No 4mg 4 mg, Slow IV Push, ONCE, 1 dose, On Tue01/31/23 at 0215, STAT [facility] haloperidol lactate (HALDOL) injection 5 mg 01-31 07:15: 00 01-31 07:03 :00 No 5mg 5 mg, Intravenou s, ONCE, 1 dose, On Tue01/31/23 at 0215, STAT [facility] nitroglycer in (NITROSTAT) sublingual tablet 0.4 mg 01-31 06:47: 30 Yes .4mg 0.4 mg, Sublingual , Q5MIN PRN, 3 doses, Starting on Tue01/31/23 at 0147, Until Discontinu ed, ISMAEL, Chest pain [facility] ondansetron (ZOFRAN (PF)) injection 4 mg 01-31 06:45: 00 01-31 06:47 :00 No 4mg 4 mg, Slow IV Push, ONCE, 1 dose, On Tue01/31/23 at 0145, ISMAEL [facility] ondansetron (ZOFRAN (PF)) injection 4 mg 01-31 06:15: 00 01-31 06:06 :00 No 4mg 4 mg, Slow IV Push, ONCE, 1 dose, On Tue01/31/23 at 0115, ISMAEL [facility] morpHINE (4 mg/mL) injection 4 mg 01-31 06:15: 00 01-31 06:05 :00 No 4mg 4 mg, Slow IV Push, ONCE, 1 dose, On Tue01/31/23 at 0115, STAT [facility] aspirin tablet 325 mg 01-31 06:13: 00 01-31 06:18 :00 No 325mg 325 mg, Oral, ONCE, 1 dose, On Tue01/31/23 at 0115, ISMAEL [facility] dexamethaso ne (DECADRON PHOSPHATE) injection 10 mg 5-05 02:45: 00 10-15 03:25 :00 No 10mg 10 mg, Intramuscu lar, ONCE, 1 dose, On Daisha 10/14/22 at 2145, Routine [facility] HYDROcodone -acetaminop hen (NORCO) 10-325 mg tablet 1 tablet 10-15 02:30: 00 10-15 03:19 :00 No 1{tbl} 1 tablet, Oral, ONCE, 1 dose, On Daisha 10/14/22 at 2130, Routine [facility] naproxen (NAPROSYN) tablet 500 mg 10-15 02:30: 00 10-15 03:20 :00 No 500mg 500 mg, Oral, ONCE, 1 dose, On Daisha 10/14/22 at 2130, Routine [facility] lisinopril 2.5 mg tablet 10-14 21:57: 27 10-14 00:00 :00 No 5mg Take 5 mg by mouth daily. [facility] aspirin chewable tablet 324 mg 2021-06 14:00: 00 Yes 324mg 324 mg, Oral, DAILY, First dose on 03/27/22 at 0900, Until Discontinu ed, Routine [facility] FENTanyl PF (SUBLIMAZE (PF)) injection 50 mcg 2021-06 09:30: 00 03-27 08:39 :00 No 50ug 50 mcg, Slow IV Push, ONCE, 1 dose, On 03/27/22 at 0430, Routine [facility] ondansetron (ZOFRAN (PF)) injection 4 mg 2021-06 08:30: 00 03-27 08:37 :00 No 4mg 4 mg, Slow IV Push, ONCE, 1 dose, On 03/27/22 at 0330, ISMAEL [facility] traMADoL (ULTRAM) 50 mg tablet 03-08 00:00: 00 10-14 00:00 :00 No [id number] 50mg Take 1 tablet by mouth every 6 (six) hours as needed for Pain (scale 7-10). Indication s: acute pain [facility] lisinopril 2.5 mg tablet 01-09 10:23: 21 Yes 5mg Take 5 mg by mouth daily. [facility] methylPREDN ISolone (MEDROL, ELLA,) 4 mg tablets 01-09 00:00: 00 10-14 00:00 :00 No [id number] 84mg Take 21 tablets by mouth SEE-INSTRU CTIONS. follow package directions [facility] omeprazole 40 mg capsule 12-27 00:00: 00 10-14 00:00 :00 No 40mg Take 40 mg by mouth daily. [facility] amLODIPine 5 mg tablet 12-27 00:00: 00 10-14 00:00 :00 No 1{tbl} Take 1 tablet by mouth daily. [facility] ondansetron (ZOFRAN ODT) 4 mg disintegrat ing tablet 02-10 00:00: 00 10-14 00:00 :00 No [id number] 4mg Take 1 tablet by mouth every 8 (eight) hours as needed for Nausea and Vomiting (N/V). [facility] acetaminoph en-codeine (TYLENOL-CO DEINE #3) 300-30 mg tablet 11-19 00:00: 00 10-14 00:00 :00 No [id number] 1{tbl} Take 1 tablet by mouth every 6 (six) hours as needed for Pain (scale 7-10). [facility] ibuprofen 800 mg tablet 11-19 00:00: 10-14 00:00 :00 No [id number] 800mg Take 1 tablet by mouth every 8 (eight) hours as needed for Pain (scale 4-6). [facility] traMADOL 50 mg tablet 12-04 00:00: 00 10-14 00:00 :00 No 50mg Take 1 tablet by mouth every 6 (six) hours as needed (pain). [facility] Immunizations Ordered Immunization Name Filled Immunization Name Date Status Comments Source TDAP (ADACEL) VACCINE 2019-11-20 00:00:00 Completed [facility] TDAP (ADACEL) VACCINE 2019-11-20 00:00:00 Completed [facility] TDAP (ADACEL) VACCINE 2019-11-20 00:00:00 Completed [facility] TDAP (ADACEL) VACCINE 2019-11-20 00:00:00 Completed [facility] TDAP (ADACEL) VACCINE 2019-11-20 00:00:00 Completed [facility] TDAP (ADACEL) VACCINE 2019-11-20 00:00:00 Completed [facility] TDAP (ADACEL) VACCINE Unknown Completed [facility] TDAP (ADACEL) VACCINE Unknown Completed [facility] TDAP (ADACEL) VACCINE Unknown Completed [facility] TDAP (ADACEL) VACCINE Unknown Completed [facility] Vital Signs Vital Name Observation Time Observation Value Comments S ource Systolic blood pressure 2024-06-19 19:00:00 133 mm[Hg] [facility] Diastolic blood pressure 2024-06-19 19:00:00 90 mm[Hg] [facility] Heart rate 2024-06-19 19:00:00 76 /min [facility] Body temperature 2024-06-19 19:00:00 37 Digna [facility] Respiratory rate 2024-06-19 19:00:00 20 /min [facility] Oxygen saturation in Arterial blood by Pulse oximetry 2024-06-19 19:00:00 98 /min [facility] Body height 2024-06-19 16:52:00 177.8 cm [facility] Body weight 2024-06-19 16:52:00 93.895 kg [facility] BMI 2024-06-19 16:52:00 29.70 kg/m2 [facility] Systolic blood pressure 2023-10-24 10:08:00 125 mm[Hg] [facility] Diastolic blood pressure 2023-10-24 10:08:00 97 mm[Hg] [facility] Heart rate 2023-10-24 10:08:00 104 /min [facility] Body temperature 2023-10-24 10:08:00 36.89 Digna [facility] Respiratory rate 2023-10-24 10:08:00 21 /min [facility] Oxygen saturation in Arterial blood by Pulse oximetry 2023-10-24 10:08:00 95 /min [facility] Body height 2023-10-24 08:24:00 182.9 cm [facility] Body weight 2023-10-24 08:24:00 92.987 kg [facility] BMI 2023-10-24 08:24:00 27.80 kg/m2 [facility] Systolic blood pressure 2023-05-26 04:06:00 152 mm[Hg] [facility] Diastolic blood pressure 2023-05-26 04:06:00 91 mm[Hg] [facility] Heart rate 2023-05-26 04:06:00 75 /min [facility] Body temperature 2023-05-26 04:06:00 37 Digna [facility] Respiratory rate 2023-05-26 04:06:00 18 /min [facility] Oxygen saturation in Arterial blood by Pulse oximetry 2023-05-26 04:06:00 96 /min [facility] Body height 2023-05-26 00:54:00 177.8 cm [facility] Body weight 2023-05-26 00:54:00 93.895 kg [facility] BMI 2023-05-26 00:54:00 29.70 kg/m2 [facility] Systolic blood pressure 2023-04-23 11:00:00 119 mm[Hg] [facility] Diastolic blood pressure 2023-04-23 11:00:00 75 mm[Hg] [facility] Heart rate 2023-04-23 11:00:00 75 /min [facility] Respiratory rate 2023-04-23 11:00:00 16 /min [facility] Oxygen saturation in Arterial blood by Pulse oximetry 2023-04-23 11:00:00 95 /min [facility] Body temperature 2023-04-23 07:03:00 36.61 Digna [facility] Body height 2023-04-23 07:03:00 177.8 cm [facility] Body weight 2023-04-23 07:03:00 93.895 kg [facility] BMI 2023-04-23 07:03:00 29.70 kg/m2 [facility] Systolic blood pressure 2023-01-31 10:00:00 118 mm[Hg] [facility] Diastolic blood pressure 2023-01-31 10:00:00 72 mm[Hg] [facility] Heart rate 2023-01-31 10:00:00 78 /min [facility] Respiratory rate 2023-01-31 10:00:00 18 /min [facility] Oxygen saturation in Arterial blood by Pulse oximetry 2023-01-31 10:00:00 97 /min [facility] Body temperature 2023-01-31 05:58:00 36.83 Digna [facility] Body height 2023-01-31 05:58:00 177.8 cm [facility] Body weight 2023-01-31 05:58:00 92.987 kg [facility] BMI 2023-01-31 05:58:00 29.41 kg/m2 [facility] Systolic blood pressure 2022-10-15 03:49:57 144 mm[Hg] [facility] Diastolic blood pressure 2022-10-15 03:49:57 78 mm[Hg] [facility] Heart rate 2022-10-15 01:05:00 71 /min [facility] Body temperature 2022-10-15 01:05:00 37.28 Digna [facility] Respiratory rate 2022-10-15 01:05:00 15 /min [facility] Body height 2022-10-15 01:05:00 177.8 cm [facility] Body weight 2022-10-15 01:05:00 93.895 kg [facility] BMI 2022-10-15 01:05:00 29.70 kg/m2 [facility] Oxygen saturation in Arterial blood by Pulse oximetry 2022-10-15 01:05:00 95 /min [facility] Heart rate 2022-03-27 11:30:00 69 /min [facility] Respiratory rate 2022-03-27 11:30:00 13 /min [facility] Oxygen saturation in Arterial blood by Pulse oximetry 2022-03-27 11:30:00 94 /min [facility] Systolic blood pressure 2022-03-27 11:00:00 95 mm[Hg] [facility] Diastolic blood pressure 2022-03-27 11:00:00 57 mm[Hg] [facility] Body temperature 2022-03-27 08:17:00 35.83 Digna [facility] Body height 2022-03-27 08:17:00 177.8 cm [facility] Body weight 2022-03-27 08:17:00 93.895 kg [facility] BMI 2022-03-27 08:17:00 29.70 kg/m2 [facility] Systolic blood pressure 2021-01-09 15:20:00 113 mm[Hg] [facility] Diastolic blood pressure 2021-01-09 15:20:00 73 mm[Hg] [facility] Heart rate 2021-01-09 15:20:00 78 /min [facility] Procedures Procedure Date / Time Performed Performing Clinician Source LIPASE 2024-06-19 17:56:00 Lexy Galloway [facility] COMP. METABOLIC PANEL ([id number]) 2024-06-19 17:56:00 Lexy Galloway [facility] CBC WITH DIFF 2024-06-19 17:56:00 Lexy Galloway [facility] URINALYSIS 2024-06-19 17:56:00 Lexy Galloway [facility] EKG-12 LEAD 2023-10-24 10:10:18 [facility] 2023-10-24 09:08:00 [facility] URINE DRUG (IMMUNOASSAY) - COMPREHENSIVE DRUG SCREEN W/O REFLEX 2023-10-24 09:08:00 Dyan Lopez [facility] LACTIC ACID WHOLE BLOOD 2023-10-24 08:32:00 Dyan Lopez [facility] MAGNESIUM 2023-10-24 08:29:00 [facility] TROPONIN I 2023-10-24 08:29:00 Dyan Lopez [facility] COMP. METABOLIC PANEL ([id number]) 2023-10-24 08:29:00 Dyan Lopez [facility] ETHANOL 2023-10-24 08:29:00 [facility] WITH DIFF 2023-10-24 08:29:00 [facility]yan [facility] URINALYSIS 2023-05-26 02:13:00 Héctor Cooper [facility] ASSIGNMENT OF BENEFITS 2023-05-26 01:51:24 Docto r Unassigned, [place] [facility] CT LUMBAR SPINE WO CONTRAST 2023-05-26 01:33:00 Héctor Cooper [facility] CONSENT/REFUSAL FOR DIAGNOSIS AND TREATMENT 2023-05-26 00:21:36 Doctor Unassigned, [place] [facility] TROPONIN I 2023-04-23 10:37:[address] [facility] EKG-12 LEAD 2023-04-23 08:10:[address] [facility] XR CHEST 1 VW 2023-04-23 07:35:43 Edward Hankins [facility] TROPONIN I 2023-04-23 07:16:[address] [facility] BASIC METABOLIC PANEL (NA, K, CL, CO2, GLUCOSE, BUN, CREATININE, CA) 2023-04-23 07:16:00 Edward Hankins [facility] ETHANOL 2023-04-23 07:16:[address] [facility] CBC WITH DIFF 2023-04-23 07:16:00 Edward Hankins [facility] D-DIMER 2023-04-23 07:16:00 Edward Hankins [facility] N-TERMINAL PRO-BNP 2023-04-23 07:16:00 Edward Hankins [facility] TROPONIN I 2023-01-31 09:19:00 Sridevi Segal [facility] CT CHEST PULMONARY ANGIOGRAM 2023-01-31 07:40:00 Sridevi Segal [facility] URINALYSIS 2023-01-31 06:32:00 Sridevi Segal [facility] URINE DRUG (IMMUNOASSAY) - COMPREHENSIVE DRUG SCREEN W/O REFLEX 2023-01-31 06:32:00 Sridevi Segal [facility] CREATINE KINASE 2023-01-31 06:07:00 Sridevi Segal [facility] LIPASE 2023-01-31 06:07:00 Sridevi Segal [facility] MAGNESIUM 2023-01-31 06:07:00 Sridevi Segal [facility] TROPONIN I 2023-01-31 06:07:00 Sridevi Segal [facility] COMP. METABOLIC PANEL ([id number]) 2023-01-31 06:07:00 Sridevi Segal [facility] ETHANOL 2023-01-31 06:07:00 Sridevi Segal [facility] CBC WITH DIFF 2023-01-31 06:07:00 [facility] N-TERMINAL PRO-BNP 2023-01-31 06:07:00 Aditi Segal [facility] NOTICE OF PRIVACY PRACTICES 2023-01-31 05:49:42 Doctor Unassigned, [place] [facility] CONSENT/REFUSAL FOR DIAGNOSIS AND TREATMENT 2023-01-31 05:48:10 Doctor Unassigned, [place] [facility] XR HEEL 2+ VW RIGHT 2022-10-15 02:05:44 Hola Goodson [facility] CONSENT/REFUSAL FOR DIAGNOSIS AND TREATMENT 2022-10-15 01:05:31 Doctor Unassigned, [place] [facility] EKG-12 LEAD 2022-03-27 11:35:36 Oseas Michelle [facility] LIPASE 2022-03-27 09:57:00 Oseas Michelle [facility] TROPONIN I 2022-03-27 09:57:00 Oseas Michelle [facility] XR CHEST 1 VW 2022-03-27 08:58:00 Oseas Michelle [facility] TROPONIN I 2022-03-27 08:25:00 Oseas Michelle [facility] COMP. METABOLIC PANEL ([id number]) 2022-03-27 08:25:00 Oseas Michelle [facility] CBC WITH DIFF 2022-03-27 08:25:00 Oseas Michelle [facility] URINALYSIS 2022-03-27 08:25:00 Oseas Michelle [facility] CONSENT/REFUSAL FOR DIAGNOSIS AND TREATMENT 2022-03-27 07:58:19 Doctor Unassigned, [place] [facility] Encounters Start Date/Time End Date/Time Encounter Type Admission Type Attending Clinicians Care Facility Care Department Encounter ID Source 2022-10-18 15:54:41 Outpatient [facility] [id number] [facility] 2022-01-09 05:53:00 Inpatient EM Marianne Gopal [facility] [id number] [facility] 13:49:19 Outpatient CARRIE RIVAS [facility] [id number] [facility] 2021-04-14 01:24:14 Emergency [facility] [id number] [facility] 2024-06-19 10:53:00 2024-06-19 13:50:00 Emergency X LEXY GALLOWAY [facility] ERT [id number] [facility] 2024-06-19 10:53:00 2024-06-19 13:50:00 Emergency Lexy Galloway [facility] AT [facility] [id number] [facility] 2024-04-05 21:29:00 2024-04-05 22:45:00 Emergency X RAYA CONNORS RAYA CONNORS [facility] ERT [id number] [facility] 2023-10-24 03:26:00 2023-10-24 05:35:00 Emergency X JOHN DYAN [facility] ERT [id number] [facility] 2023-10-24 03:26:00 2023-10-24 05:35:00 Emergency Dyan Lopez [facility] 1..840.114 350.1.13.10 4.2.7.2.686 [id number] 084 [id number] [facility] 2023-05-25 18:56:00 2023-05-25 22:12:00 Emergency SRIDEVI KENYON [facility] ERT [id number] [facility] 2023-05-25 18:56:00 2023-05-25 22:12:00 Emergency Héctor Cooper Lynda [facility] 1..840.114 350.1.13.10 4.2.7.2.686 [id number] 084 [id number] [facility] 2023-04-23 01:11:00 2023-04-23 06:01:00 Emergency X FELIX MEYERS [facility] ERT [id number] [facility] 2023-04-23 01:11:00 2023-04-23 06:01:00 Emergency Edward Hankins Brent J [facility] 1.2.840.114 350.1.13.10 4.2.7.2.686 [id number] 084 [id number] [facility] 2023-01-31 00:55:00 2023-01-31 06:22:00 Emergency SRIDEVI KENYON [facility] ERT [id number] [facility] 2023-01-31 00:55:00 2023-01-31 06:22:00 Emergency Sridevi Segal [facility] 1.2.840.114 350.1.13.10 4.2.7.2.686 [id number] 084 [id number] [facility] 2022-10-14 20:15:00 2022-10-14 22:51:00 Emergency X HOLA GOODSON [facility] ERT [id number] [facility] 2022-10-14 20:15:00 2022-10-14 22:51:00 Emergency Hola Goodson G [facility] 1.2.840.114 350.1.13.10 4.2.7.2.686 [id number] 084 [id number] [facility] 2022-03-27 03:04:00 2022-03-27 06:50:00 Emergency X OSEAS MICHELLE [facility] ERT [id number] [facility] 2022-03-27 03:04:00 2022-03-27 06:50:00 Emergency Oseas Michelle Jewesl [facility] 1.2.840.114 350.1.13.10 4.2.7.2.686 [id number] 084 [id number] [facility] 2022-03-27 00:00:00 2022-03-27 00:00:00 Orders Only Doctor Unassigned, [place] [facility] 1.2.840.114 350.1.13.10 4.2.7.2.686 [id number] 009 [id number] [facility] 2022-03-27 00:00:00 2022-03-27 00:00:00 Patient Secure Msg Doctor Unassigned, [place] [facility] 1.2.840.114 350.1.13.10 4.2.7.2.686 [id number] [id number] [facility] 2022-01-10 11:39:00 2022-01-11 14:41:00 Inpatient EM Gopal Lopes [facility] [id number] [facility] are [place] 2022-01-10 11:39:00 2022-01-11 14:41:00 [facility]patient [facility] [id number] 89 [facility] are [facility] 2021-07-24 00:00:00 2021-07-24 00:00:00 Telephone Carrie Rivas [facility] [address] 1.2.840.114 350.1.13.58 9.2.7.2.686 [id number] [facility] 2021-03-08 01:09:00 2021-03-08 03:04:00 Emergency Oseas Michelle [facility] 1.2.840.114 350.1.13.10 4.2.7.2.686 [id number] 084 [id number] [facility] 2021-01-09 10:29:25 2021-01-09 23:59:00 Hospital Encounter Rosas Ch[facility] 1.2.840.114 350.1.13.10 4.2.7.2.686 [id number] [facility] 2021-01-09 10:16:46 2021-01-09 10:52:49 Office Visit Rosas Chandra [facility] 1.2.840.114 350.1.13.10 4.2.7.2.686 [id number] [facility] 2021-01-09 10:15:00 2021-01-09 10:52:49 Outpatient SILVINO LINDSEY [facility] [id number] [facility] 2020-11-22 22:49:00 2020-11-23 06:18:00 Emergency Dyan Lopez [facility] 1.2.840.114 350.1.13.10 4.2.7.2.686 [id number] 084 [id number] [facility] 2020-11-22 22:49:00 2020-11-22 22:49:00 Emergency X DYAN LOPEZ [facility] ERT [id number] [facility] 2020-11-18 18:09:00 2020-11-18 18:21:00 Emergency Chelo Higgins [facility] 1.2.840.114 350.1.13.10 4.2.7.2.686 [id number] 084 [id number] [facility] 2020-11-04 22:01:00 2020-11-04 23:47:00 Emergency X [facility] ERT [id number] [facility] 2020-11-04 22:01:00 2020-11-04 23:47:00 Emergency [facility] 1.2.840.114 350.1.13.10 4.2.7.2.686 [id number] 084 [id number] [facility] 2020-02-11 00:51:00 2020-02-11 02:35:00 Emergency Segundo Marin [facility] 1.2.840.114 350.1.13.10 4.2.7.2.686 [id number] 084 [id number] [facility] 2020-02-11 00:51:00 2020-02-11 00:51:00 Emergency X SEGUNDO MARIN [facility] ERT [id number] [facility] 2019-11-20 19:36:41 2019-11-20 22:05:00 Emergency X SEGUNDO MARIN [facility] ERT [id number] [facility] Results Test Description Test Time Test Comments Results Result Co mments Source [facility] [id number] 18:37:24* Test Item Value Reference Range Interpretation Comme nts LIPASE (test code = 4723031374) 61 U/L 0-220 Lab Interpretation (test cod e = 92596-5) Normal [facility] with [id number] 18:18:19* Test Item Value Reference Range Interpretation Comme nts WBC (test code = 6690-2) 6.33 4.20-10.70 RBC (test code = 789-8) 4.92 4.26-5.52 HGB (test code = 718-7) 15.1 g/dL 12.2-16.4 HCT (test code = 4544-3) 44.8 % 38.4-49.3 MCV (test code = 787-2) 91.1 fL 81.7-95.6 MCH (test code = 785-6) 30.7 pg 26.1-32.7 MCHC (test code = 786-4) 33.7 g/dL 31.2-35.0 RDW-SD (test code = 31743-0) 41.0 fL 38.5-51.6 RDW-CV (test code = 788-0) 12.4 % 12.1-15.4 PLT (test code = 777-3) 192 150-328 MPV (test code = 65297-8) 10.5 fL 9.8-13.0 NRBC/100 WBC (test code = 9933454031) 0.0 0.0-10.0 NRBC x10^3 (test code = 5371391904) See_Comment [Automated me ssage] The system which generated this result transmitted reference range: 10*3/?L. The reference range was not used to interpret this result as normal/abnormal. GRAN MAT (NEUT) % (test code = 770-8) 58.9 % IMM GRAN % (test code = 8014464024) 0.20 % LYMPH % (test code = 736-9) 33.0 % MONO % (test code = 5905-5) 6.0 % EOS % (test code = 713-8) 1.4 % BASO % (test code = 706-2) 0.5 % GRAN MAT x10^3(ANC) (test code = 7087306445) 3.73 10*3/uL 1.99-6.95 IMM GRAN x10^3 (test code = 3377163928) 0.00-0.06 LYMPH x10^3 (test code = 731-0) 2.09 10*3/uL 1.09-3.23 MONO x10^3 (test code = 742-7) 0.38 10*3/uL 0.36-1.02 EOS x10^3 (test code = 711-2) 0.09 10*3/uL 0.06-0.53 BASO x10^3 (test code = 704-7) 0.03 10*3/uL 0.01-0.09 [facility] Hospital[facility] [id number] 09:31:31* Test Item Value Reference Range Interpretation Comme nts TROPONIN I (test code = 9620808656) 0.011 ng/mL <=0.034 GUY (test code = GUY) Reference (Normal) Range (defined by the 99th percentile reference [...] to patient's use of biotin. Lab Interpretation (test code = 70289-6) Normal [facility] HospitalETHANOL2024-05-13 09:20:47* Test Item Value Reference Range Interpretation Comme nts ALCOHOL (test code = 6974394219) 154 mg/dL GUY (test code = GUY) <10 Xsfwfenh88-743 Toxic>100 Depression of [place] [facility]>400 Fatalities Reported [facility] HospitalMagnesium2024-05-13 09:20:12* Test Item Value Reference Range Interpretation Comme nts MAGNESIUM (test code = 0139428464) 1.9 mg/dL 1.7-2.4 Lab Interpretation (test cod e = 36456-5) Normal [facility] Hospital[facility]. METABOLIC PANEL (12252)2023-10-24 09:20:11* Test Item Value Reference Range Interpretation Comme nts NA (test code = 8352091066) 141 mmol/L 135-145 K (test code = 7379971802) 3.5 mmol/L 3.5-5.0 CL (test code = 8072802468) 107 mmol/L 98-108 CO2 TOTAL (test code = 4504835545) 25 mmol/L 23-31 AGAP (test code = 0870047413) 9 2-16 BUN (test code = 2973396366) 11 mg/dL 7-23 GLUCOSE (test code = 5540871818) 106 mg/dL 70-110 CREATININE (test code = 2160-0) 0.99 mg/dL 0.60-1.25 TOTAL BILI (test code = 4115675349) 0.4 mg/dL 0.1-1.1 CALCIUM (test code = 4384569655) 8.7 mg/dL 8.6-10.6 T PROTEIN (test code = 7308993491) 7.1 g/dL 6.3-8.2 ALBUMIN (test code = 5656359387) 4.3 g/dL 3.5-5.0 ALK PHOS (test code = 3059309253) 75 U/L 34-122 ALTv (test code = 1742-6) 50 U/L 5-50 AST(SGOT) (test code = 8580740456) 36 U/L 13-40 eGFR (test code = 85521-4) 96.9 mL/min/1.73m2 CKD-EPI eGFR (20 21). Assuming creatinine has been stable day-to-day for at least three months, the eGFR indicates Category G1 (>= 90 mL/min/1.73 m2) [facility] WITH [id number] 09:02:49* Test Item Value Reference Range Interpretation Comme nts WBC (test code = 6690-2) 5.91 4.20-10.70 RBC (test code = 789-8) 4.63 4.26-5.52 HGB (test code = 718-7) 14.5 g/dL 12.2-16.4 HCT (test code = 4544-3) 41.2 % 38.4-49.3 MCV (test code = 787-2) 89.0 fL 81.7-95.6 MCH (test code = 785-6) 31.3 pg 26.1-32.7 MCHC (test code = 786-4) 35.2 g/dL 31.2-35.0 H RDW-SD (test code = 91972-1) 40.5 fL 38.5-51.6 RDW-CV (test code = 788-0) 12.4 % 12.1-15.4 PLT (test code = 777-3) 207 150-328 MPV (test code = 08213-8) 10.2 fL 9.8-13.0 NRBC/100 WBC (test code = 0677844026) 0.0 0.0-10.0 NRBC x10^3 (test code = 6072865342) See_Comment [Automated messa ge] The system which generated this result transmitted reference range: 10*3/?L. The reference range was not used to interpret this result as normal/abnormal. GRAN MAT (NEUT) % (test code = 770-8) 55.6 % IMM GRAN % (test code = 3776131450) 0.50 % LYMPH % (test code = 736-9) 37.7 % MONO % (test code = 5905-5) 5.1 % EOS % (test code = 713-8) 0.8 % BASO % (test code = 706-2) 0.3 % GRAN MAT x10^3(ANC) (test code = 0729171338) 3.28 10*3/uL 1.99-6.95 IMM GRAN x10^3 (test code = 8381716568) 0.03 10*3/uL 0.00-0.06 LYMPH x10^3 (test code = 731-0) 2.23 10*3/uL 1.09-3.23 MONO x10^3 (test code = 742-7) 0.30 10*3/uL 0.36-1.02 L EOS x10^3 (test code = 711-2) 0.05 10*3/uL 0.06-0.53 L BASO x10^3 (test code = 704-7) 0.01-0.09 Lab Interpretation (test code = 01609-0) [facility]normal [facility] Branch[facility] Whole [id number] 08:38:48* Test Item Value Reference Range Interpretation Comme nts LACTIC ACID (test code = 1538567863) 1.52 mmol/L 0.50-2.20 Lab Interpretation (test cod e = 23014-3) Normal [facility] [id number] 10:44:03* Test Item Value Reference Range Interpretation Comme nts TROPONIN I (test code = 4306885208) 0.006 ng/mL <=0.034 GUY (test code = GUY) Reference (Normal) Range (defined by the 99th percentile reference [...] to patient's use of biotin. Lab Interpretation (test code = 11424-8) Normal [facility] Hospital[facility]IPASE2022-10-15 11:27:19* Test Item Value Reference Range Interpretation Comme nts LIPASE (test code = 2687916850) 36 U/L 0-220 Lab Interpretation (test cod e = 98390-3) Normal [facility] [id number] 11:06:12* Test Item Value Reference Range Interpretation Comments TROPONIN I (test code = 4367501634) 0.003 ng/mL See_Comment [Automated message] The system which generated this result transmitted reference range: <=0.034. The reference range was not used to interpret this result as normal/abnormal. GUY (test code = GUY) Reference (Normal) Range (defined by the 99th percentile reference [...] to patient's use of biotin. Lab Interpretation (test code = 22808-6) Normal [facility] [id number] 09:12:39* Test Item Value Reference Range Interpretation Comments TROPONIN I (test code = 4887097918) 0.005 ng/mL See_Comment [Automated message] The system which generated this result transmitted reference range: <=0.034. The reference range was not used to interpret this result as normal/abnormal. GUY (test code = GUY) Reference (Normal) Range (defined by the 99th percentile reference [...] to patient's use of biotin. Lab Interpretation (test code = 71256-8) Normal [facility]. METABOLIC PANEL (68807)2022-03-27 09:01:17* Test Item Value Reference Range Interpretation Comme nts NA (test code = 1666528710) 147 mmol/L 135-145 H K (test code = 9794051002) 3.9 mmol/L 3.5-5 CL (test code = 6880423281) 107 mmol/L 98-108 CO2 TOTAL (test code = 9944028058) 24 mmol/L 23-31 AGAP (test code = 5632759986) 2-16 BUN (test code = 3107608912) 7 mg/dL 7-23 GLUCOSE (test code = 3433148305) 105 mg/dL 70-110 CREATININE (test code = 2839945988) 0.92 mg/dL 0.6-1.25 TOTAL BILI (test code = 2567547227) 0.6 mg/dL 0.1-1.1 CALCIUM (test code = 6408153084) 10.4 mg/dL 8.6-10.6 T PROTEIN (test code = 6475604640) 8.1 g/dL 6.3-8.2 ALBUMIN (test code = 0182788401) 5.1 g/dL 3.5-5 H ALK PHOS (test code = 5740414138) 74 U/L 34-122 ALTv (test code = 1742-6) 50 U/L 5-50 AST(SGOT) (test code = 9768862699) 33 U/L 13-40 eGFR (test code = 6774291016) mL/min/1.73m2 GUY (test code = GUY) Association of [...] or abnormalities in imaging tests). Lab Interpretation (test code = 33638-5) Abnormal [facility] WITH [id number] 08:50:16* Test Item Value Reference Range Interpretation Comme nts WBC (test code = 6690-2) See_Comment [Automated [employer]] The system which generated this result transmitted reference range: 4.20 - 10.70 10*3/?L. The reference range was not used to interpret this result as normal/abnormal. RBC (test code = 789-8) See_Comment [Automated messa ge] The system which generated this result transmitted reference range: 4.26 - 5.52 10*6/?L. The reference range was not used to interpret this result as normal/abnormal. HGB (test code = 718-7) 16.2 g/dL 12.2-16.4 HCT (test code = 4544-3) 45.8 % 38.4-49.3 MCV (test code = 787-2) 86.9 fL 81.7-95.6 MCH (test code = 785-6) 30.7 pg 26.1-32.7 MCHC (test code = 786-4) 35.4 g/dL 31.2-35 H RDW-SD (test code = 90181-7) 39.8 fL 38.5-51.6 RDW-CV (test code = 788-0) 12.6 % 12.1-15.4 PLT (test code = 777-3) See_Comment [Automated [employer]] The system which generated this result transmitted reference range: 150 - 328 10*3/?L. The reference range was not used to interpret this result as normal/abnormal. MPV (test code = 04361-8) 10.0 fL 9.8-13 NRBC/100 WBC (test code = 9411666699) See_Comment [Automated [employer] ssage] The system which generated this result transmitted reference range: 0.0 - 10.0 /100 WBCs. The reference range was not used to interpret this result as normal/abnormal. NRBC x10^3 (test code = 3527057367) See_Comment [Automated [employer]] The system which generated this result transmitted reference range: 10*3/?L. The reference range was not used to interpret this result as normal/abnormal. GRAN MAT (NEUT) % (test code = 770-8) 53.1 % IMM GRAN % (test code = 6492400559) 0.40 % LYMPH % (test code = 736-9) 40.0 % MONO % (test code = 5905-5) 5.0 % EOS % (test code = 713-8) 1.0 % BASO % (test code = 706-2) 0.5 % GRAN MAT x10^3(ANC) (test code = 9115537599) 4.06 10*3/uL 1.99-6.95 IMM GRAN x10^3 (test code = 6589300926) 0.03 10*3/uL 0-0.06 LYMPH x10^3 (test code = 731-0) 3.06 10*3/uL 1.09-3.23 MONO x10^3 (test code = 742-7) 0.38 10*3/uL 0.36-1.02 EOS x10^3 (test code = 711-2) 0.08 10*3/uL 0.06-0.53 BASO x10^3 (test code = 704-7) 0.04 10*3/uL 0.01-0.09 Lab Interpretation (test code = 97858-7) Abnormal [facility] METABOLIC [id number] 09:02:00* Test Item Value Reference Range Interpretation Comme nts SODIUM (test code = NA) 144 mmol/L 135-145 N POTASSIUM (test code = K) 4.0 mmol/L 3.5-5.1 N CHLORIDE (test code = CL) 110 mmol/L 98-107 H CARBON DIOXIDE (test code = CO2) 30 mmol/L 21-32 N ANION GAP (test code = GAP) 8.0 2.0-16.0 N GLUCOSE (test code = GLU) 123 mg/dL 65-99 H BLOOD UREA NITROGEN (test code = BUN) 11 mg/dL 4-23 N GLOMERULAR FILTRATION RATE (test code = GFR) >=60 max estimate ml/min The estimated glomerular filtration rate is computed usingpatient race, age (>18), sex, and serum creatinine. If anyof the needed data elements are missing the Laboratory cannot compute an estimation of the glomerular filtration rate. CREATININE (test code = CREAT) 1.1 mg/dL 0.6-1.5 N BUN/CREATININE RATIO (test code = BUN/CREA) 10.0 12.0-20.0 L CALCIUM (test code = CA) 8.5 mg/dL 8.5-10.1 N CBC W/AUTO [id number] 08:37:00* Test Item Value Reference Range Interpretation Comme nts WHITE BLOOD CELL (test code = WBC) 4.3 10 3/uL 4.5-11.0 L RED BLOOD CELL (test code = RBC) 4.00 10 6/uL 4.30-5.90 L HEMOGLOBIN (test code = HGB) 12.1 g/dL 14.0-18.0 L HEMATOCRIT (test code = HCT) 36.1 % 40.0-55.0 L MEAN CELL VOLUME (test code = MCV) 90 fL 81-102 N MEAN CELL HGB (test code = MCH) 30.3 pg 26.0-34.0 N MEAN CELL HGB CONCENTRATION (test code = MCHC) 33.5 g/dL 31.0-37.0 N RED CELL DISTRIBUTION WIDTH (test code = RDW) 12.4 % 11.6-14.4 N PLATELET COUNT (test code = PLT) 191 10 3/uL 150-400 N MEAN PLATELET VOLUME (test code = MPV) 10.1 fL 9.0-12.6 N NEUTROPHIL % (test code = NT%) 53.6 % 33.0-76.0 N IMMATURE GRANULOCYTE % (test code = IG%) 0.2 % 0.0-1.0 N LYMPHOCYTE % (test code = LY%) 33.0 % 14.0-56.4 N MONOCYTE % (test code = MO%) 10.7 % 0.0-12.9 N EOSINOPHIL % (test code = EO%) 2.3 % 0.0-7.0 N BASOPHIL % (test code = BA%) 0.2 % 0-2.0 N NUCLEATED RBC % (test code = NRBC%) 0.0 % 0-0.2 N NEUTROPHIL # (test code = NT#) 2.30 10 3/uL 1.5-7.0 N IMMATURE GRANULOCYTE # (test code = IG#) 0.010 x10 3/uL 0.000-0.100 N LYMPHOCYTE # (test code = LY#) 1.42 10 3/uL 1.50-4.00 L MONOCYTE # (test code = MO#) 0.46 10 3/uL 0.20-0.80 N EOSINOPHIL # (test code = EO#) 0.10 10 3/uL 0.0-0.5 N BASOPHIL # (test code = BA#) 0.01 10 3/uL 0.0-0.1 N NUCLEATED RBC # (test code = NRBC#) 0.000 10 3/uL 0.000-0.012 N BASIC METABOLIC [id number] 07:29:00* Test Item Value Reference Range Interpretation Comme nts SODIUM (test code = NA) 139 mmol/L 135-145 N POTASSIUM (test code = K) 3.7 mmol/L 3.5-5.1 N CHLORIDE (test code = CL) 106 mmol/L 98-107 N CARBON DIOXIDE (test code = CO2) 27 mmol/L 21-32 N ANION GAP (test code = GAP) 9.7 2.0-16.0 N GLUCOSE (test code = GLU) 81 mg/dL 65-99 N BLOOD UREA NITROGEN (test code = BUN) 10 mg/dL 4-23 N GLOMERULAR FILTRATION RATE (test code = GFR) >=60 max estimate ml/min The estimated glomerular filtration rate is computed usingpatient race, age (>18), sex, and serum creatinine. If anyof the needed data elements are missing the Laboratory cannot compute an estimation of the glomerular filtration rate. CREATININE (test code = CREAT) 1.0 mg/dL 0.6-1.5 N BUN/CREATININE RATIO (test code = BUN/CREA) 10.0 12.0-20.0 L CALCIUM (test code = CA) 8.7 mg/dL 8.5-10.1 N [id number] 07:29:00* Test Item Value Reference Range Interpretation Comme nts PHOSPHOROUS (test code = PHOS) 3.5 mg/dL 2.5-4.9 N [id number] 07:29:00* Test Item Value Reference Range Interpretation Comme nts MAGNESIUM (test code = MAG) 2.1 mg/dL 1.8-2.4 N CBC W/AUTO [id number] 07:10:00* Test Item Value Reference Range Interpretation Comme nts WHITE BLOOD CELL (test code = WBC) 4.3 10 3/uL 4.5-11.0 L RED BLOOD CELL (test code = RBC) 4.19 10 6/uL 4.30-5.90 L HEMOGLOBIN (test code = HGB) 12.7 g/dL 14.0-18.0 L HEMATOCRIT (test code = HCT) 37.6 % 40.0-55.0 L MEAN CELL VOLUME (test code = MCV) 90 fL 81-102 N MEAN CELL HGB (test code = MCH) 30.3 pg 26.0-34.0 N MEAN CELL HGB CONCENTRATION (test code = MCHC) 33.8 g/dL 31.0-37.0 N RED CELL DISTRIBUTION WIDTH (test code = RDW) 12.6 % 11.6-14.4 N PLATELET COUNT (test code = PLT) 163 10 3/uL 150-400 N MEAN PLATELET VOLUME (test code = MPV) 9.9 fL 9.0-12.6 N NEUTROPHIL % (test code = NT%) 55.7 % 33.0-76.0 N IMMATURE GRANULOCYTE % (test code = IG%) 0.2 % 0.0-1.0 N LYMPHOCYTE % (test code = LY%) 29.3 % 14.0-56.4 N MONOCYTE % (test code = MO%) 11.7 % 0.0-12.9 N EOSINOPHIL % (test code = EO%) 2.6 % 0.0-7.0 N BASOPHIL % (test code = BA%) 0.5 % 0-2.0 N NUCLEATED RBC % (test code = NRBC%) 0.0 % 0-0.2 N NEUTROPHIL # (test code = NT#) 2.38 10 3/uL 1.5-7.0 N IMMATURE GRANULOCYTE # (test code = IG#) 0.010 x10 3/uL 0.000-0.100 N LYMPHOCYTE # (test code = LY#) 1.25 10 3/uL 1.50-4.00 L MONOCYTE # (test code = MO#) 0.50 10 3/uL 0.20-0.80 N EOSINOPHIL # (test code = EO#) 0.11 10 3/uL 0.0-0.5 N BASOPHIL # (test code = BA#) 0.02 10 3/uL 0.0-0.1 N NUCLEATED RBC # (test code = NRBC#) 0.000 10 3/uL 0.000-0.012 N - CT ABD PELVIS W/[id number] 20:21:00 [facility] : 1980 Sex: MPatient Name: MAURICIO BLISS Unit No: [id number] EXAMS: CPT CODE: [id number] CT ABD PELVIS W/CONT 48594GOVE: - CT ABD PELVIS W/CONT HISTORY: Abdominal pain. TECHNIQUE: Axial tomograms through the abdomen and pelvis were obtained after intravenous contrast. Coronal and sagittal reformatted images are provided. This exam was performed according to our departmental dose-optimization program, which inclu lorena automated exposure control, adjustment of the mA and/or kV according to patient size and/or useof iterative reconstruction technique. COMPARISON: None available time of interpretation. FINDINGS:The visualized lung bases are clear. There is [...] are present in spine. IMPRESSION: Proximal colitis. Electronically Signedby Eduardo Candelaria MD on 01/09/2022 at 2020 Reported and signed by: Eduardo Candelaria MD CC: Self Referred; Gopal Lopes MD; Deborah HERMAN Technologist: Gerber Mon CTDI: DLP: 799.3 Trscr Dt/Tm: 01/09/2022 (2020) by:[email or web address] Electronic Signature Date/Time: 01/09/2022 (2020)Orig Print D/T: S: 01/09/2022 (2023) Name: MAURICIO BLISS [facility] Phys: Deborah Brothers[address] : 1980 Age: 41 Sex: [place] [id number] Loc: NC.5201 1 Exam Date: 01/09/2022 Status: ADM IN PH: FAX: PAGE 1 Signed Report- US ABDOMEN [id number] 12:26:00 [facility] : 1980 Sex: MPatient Name: MAURICIO BLISS Unit No: [id number] EXAMS: CPT CODE: [id number] US ABDOMEN LTD 79184 GALLBLADDER/LIVER ULTRASOUND TECHNIQUE: Ultrasound of the right [...] of normal caliber with common duct measuring 0.7cm. No definite choledocholithiasis. Pancreas is partially obscured [...] Deborah HERMAN Technologist: Kandice Tran Probe: Trscr Dt/Tm: 01/09/2022 (1226) by:[email or web address] Electronic Signature Date/Time: 01/09/2022 (1226)Orig Print D/T: S: 01/09/2022 (9517) [facility] Deborah Jimenez [address] : 1980 Age: 41 Sex: [place] [id number] Loc: NC.5201 1 Exam Date: 01/09/2022 Status: ADM IN PH: FAX: PAGE 1 Signed ReportLIPID PROFILE (CORONARY RISK)2022-01-09 10:55:00* Test Item Value Reference Range Interpretation Comme nts TRIGLYCERIDES (test code = TRIG) 110 mg/dL 0-149 N CHOLESTEROL (test code = CHOL) 128 mg/dL 0-200 N CHOLESTEROL/HDL RATIO (test code = CHOLHDL) 4 1-6 N HDL CHOLESTEROL (test code = HDL) 30 mg/dL 40-60 L LIPOPROTEIN LDL (test code = LDLC) 82 mg/dL 0-100 N LIVER FUNCTION [id number] 10:55:00* Test Item Value Reference Range Interpretation Comme nts TOTAL PROTEIN (test code = PROT) 6.4 g/dL 6.4-8.2 N ALBUMIN (test code = ALB) 3.1 g/dL 3.4-5.0 L GLOBULIN (test code = GLOB) 3.3 g/dL 2.3-3.5 N BILIRUBIN TOTAL (test code = BILT) 0.4 mg/dL 0.2-1.2 N Use of this a ssay is not recommended for patients undergoingtreatment with Eltrombopag due to the potential for falselyelevated results. BILIRUBIN DIRECT (test code = BILD) 0.1 mg/dL 0.0-0.3 N BILIRUBIN INDIRECT (test code = BILIND) 0.3 mg/dL 0.0-0.8 N SGOT/AST (test code = AST) 22 U/L 15-37 N SGPT/ALT (test code = ALT) 43 U/L 6-50 N ALKALINE PHOSPHATASE (test code = ALKP) 65 U/L 45-117 N [id number] 10:55:00* Test Item Value Reference Range Interpretation Comme nts PHOSPHOROUS (test code = PHOS) 3.0 mg/dL 2.5-4.9 N [id number] 10:55:00* Test Item Value Reference Range Interpretation Comme nts LIPASE (test code = LIP) 28 U/L 73-393 L [id number] 10:55:00* Test Item Value Reference Range Interpretation Comme nts MAGNESIUM (test code = MAG) 1.9 mg/dL 1.8-2.4 N HGBA1C - GLYCOSYLATED [id number] 10:55:00* Test Item Value Reference Range Interpretation Comme nts GLYCOSYLATED HEMOGLOBIN (HA1 C) (test code = GLYHGB) 5.4 % 4.5-5.9 N BASIC METABOLIC [id number] 10:55:00* Test Item Value Reference Range Interpretation Comme nts SODIUM (test code = NA) 139 mmol/L 135-145 N POTASSIUM (test code = K) 3.5 mmol/L 3.5-5.1 N CHLORIDE (test code = CL) 106 mmol/L 98-107 N CARBON DIOXIDE (test code = CO2) 26 mmol/L 21-32 N ANION GAP (test code = GAP) 10.5 2.0-16.0 N GLUCOSE (test code = GLU) 90 mg/dL 65-99 N BLOOD UREA NITROGEN (test code = BUN) 11 mg/dL 4-23 N GLOMERULAR FILTRATION RATE (test code = GFR) >=60 max estimate ml/min The estimated glomerular filtration rate is computed usingpatient race, age (>18), sex, and serum creatinine. If anyof the needed data elements are missing the Laboratory cannot compute an estimation of the glomerular filtration rate. CREATININE (test code = CREAT) 1.0 mg/dL 0.6-1.5 N BUN/CREATININE RATIO (test code = BUN/CREA) 11.0 12.0-20.0 L CALCIUM (test code = CA) 8.6 mg/dL 8.5-10.1 N LACTIC [id number] 10:20:00* Test Item Value Reference Range Interpretation Comme nts LACTIC ACID (test code = LACT) 0.6 mmol/L 0.4-2.0 N CBC W/AUTO [id number] 09:44:00* Test Item Value Reference Range Interpretation Comme nts WHITE BLOOD CELL (test code = WBC) 5.4 10 3/uL 4.5-11.0 N RED BLOOD CELL (test code = RBC) 4.10 10 6/uL 4.30-5.90 L HEMOGLOBIN (test code = HGB) 12.5 g/dL 14.0-18.0 L HEMATOCRIT (test code = HCT) 37.0 % 40.0-55.0 L MEAN CELL VOLUME (test code = MCV) 90 fL 81-102 N MEAN CELL HGB (test code = MCH) 30.5 pg 26.0-34.0 N MEAN CELL HGB CONCENTRATION (test code = MCHC) 33.8 g/dL 31.0-37.0 N RED CELL DISTRIBUTION WIDTH (test code = RDW) 12.5 % 11.6-14.4 N PLATELET COUNT (test code = PLT) 154 10 3/uL 150-400 N MEAN PLATELET VOLUME (test code = MPV) 9.9 fL 9.0-12.6 N NEUTROPHIL % (test code = NT%) 61.0 % 33.0-76.0 N IMMATURE GRANULOCYTE % (test code = IG%) 0.6 % 0.0-1.0 N LYMPHOCYTE % (test code = LY%) 27.1 % 14.0-56.4 N MONOCYTE % (test code = MO%) 10.0 % 0.0-12.9 N EOSINOPHIL % (test code = EO%) 1.1 % 0.0-7.0 N BASOPHIL % (test code = BA%) 0.2 % 0-2.0 N NUCLEATED RBC % (test code = NRBC%) 0.0 % 0-0.2 N NEUTROPHIL # (test code = NT#) 3.28 10 3/uL 1.5-7.0 N IMMATURE GRANULOCYTE # (test code = IG#) 0.030 x10 3/uL 0.000-0.100 N LYMPHOCYTE # (test code = LY#) 1.46 10 3/uL 1.50-4.00 L MONOCYTE # (test code = MO#) 0.54 10 3/uL 0.20-0.80 N EOSINOPHIL # (test code = EO#) 0.06 10 3/uL 0.0-0.5 N BASOPHIL # (test code = BA#) 0.01 10 3/uL 0.0-0.1 N NUCLEATED RBC # (test code = NRBC#) 0.000 10 3/uL 0.000-0.012 N COVID 19 INHOUSE [id number] 07:18:00* Test Item Value Reference Range Interpretation Comme nts COVID 19 INHOUSE AG (test code = [id number]) NEGATIVE Negative Negative results do not preclude 2019-nCoV infection andshould not be used as the sole basis for treatment or otherpatient management decisions. Negative results must becombined with clinical observations, patient history, andepidemiological information. Notes Date/Time Note Provider Source 2024-06-19 13:49:56 Pt given printed and verbal discharge instructions regarding lumbar pain with radiation down right leg, encouraged hydration, 1 Prescriptions sent. Pt verbalized understanding of instructions, pt awake alert oriented, resp reg unlabored, skin w/d, color appropriate for race, moves all ext well,pt encouraged to follow up with pcp Advised to seek medical attention for new/prolonged/worsening of symptoms, Symptoms improved. No adverse reaction to meds given in ER noted upon discharge PIV d'cd, dressing to site, catheter in tact. Awake, alert oriented, resp reg unlabored, skin w/d, pt leaving amb with steady gait, in no apparent distress, ANDO Childers RN [facility] 2024-06-19 10:51:52 Bilateral low back pain x2 weeks. Denies injury. Pain radiates down hips. ANDO Lucero RN [facility] 2023-10-24 05:20:47 Pt given printed and verbal discharge instructions regarding alcohol intoxication, new onset seizures. Pt verbalized understanding of instructions, pt awake alert oriented, resp reg unlabored, skin w/d, color appropriate for race, moves all ext well,pt encouraged to follow up with pcp. Advised to seek medical attention for new/prolonged/worsening of symptoms. Awake, alert oriented, resp reg unlabored, skin w/d, pt leaving amb with steady gait, in no apparent distress. [facility] 2023-10-24 04:19:58 Pt is still confused, A&Ox1, only oriented to person. Continues to ask where he is and how he got here, and continues to attempt to get out of bed. There is a strong smell of alcohol when pt is speaking. T [facility] 2023-10-24 03:18:09 Pt brought in by [facility] after being called out to pt having seizures. EMS reports that while on scene pt had 2 episodes within 5 min of what appeared to them to be seizures, neck stiffened, arms and legs began shaking. Following the episodes pt was A&Ox1, only knew his name. Pt was given 2 mg of Ativan IV and 300mls of NS, no episodes following the Ativan. 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 He does not have any history of seizures. Upon EMS arrival they report he had to episodes that were somewhat seizure-like that both self resolved. He was given 2 mg of IV Ativan prior to arrival and has had no further episodes. He does report a history of high blood pressure and takes medications for this. No history of diabetes. He complains of pain to the left side of his chest wall. He denies any injury or trauma. No cough or URI symptoms. No medications for symptoms. Here for evaluation. Past Medical History/Immunizations: Past Medical History: Diagnosis Date HTN (hypertension) Tetanus received in last 5 years: Unknown Allergies: Allergies Allergen Reactions Toradol [Ketorolac Tromethamine] Anxiety Past Social History: Tobacco Use Every Day; Types: Cigarettes Smokeless Tobacco: Current user of smokeless tobacco; Types: Chew, Snuff. Alcohol Use Yes. Comments: Occasionally Drug Use Never. Past Surgical History: Past Surgical History: Procedure Laterality Date APPENDECTOMY CHOLECYSTECTOMY Review of Systems: Review of Systems Unable to perform ROS: Other Physical Exam: ED Triage Vitals [10/24/23 0324] Weight 93 kg (205 lb) Actual or estimated Estimated by patient/family report Height 1.829 m (6') BP (!) 131/101 Pulse 120 Resp 24 Temp 37 ?C (98.6 ?F) Temp source Oral SpO2 95 % Measured on Room air Physical Exam Vitals and nursing note reviewed. Constitutional: Appearance: Normal appearance. He is normal weight. HENT: Head: Normocephalic and atraumatic. Mouth/Throat: Mouth: Mucous membranes are dry. Eyes: Extraocular Movements: Extraocular movements intact. Pupils: Pupils are equal, round, and reactive to light. Cardiovascular: Rate and Rhythm: Regular rhythm. Tachycardia present. Pulses: Normal pulses. Pulmonary: Effort: Pulmonary effort is normal. No respiratory distress. Breath sounds: No wheezing. Abdominal: General: There is no distension. Tenderness: There is no abdominal tenderness. Musculoskeletal: General: Normal range of motion. Cervical back: Normal range of motion and neck supple. Skin: General: Skin is warm and dry. Neurological: General: No focal deficit present. Mental Status: He is alert. Comments: Speech is clear. No facial asymmetry. Handgrip right equals left. Muscle strength is 5/5 to upper extremities and lower extremities bilaterally. Radiology: XR CHEST 1 VW Preliminary Result EXAM: XR CHEST 1 VW COMPARISON: HISTORY: chest pain IMPRESSION FINDINGS/IMPRESSION: Lungs are mildly hypoexpanded. No pleural effusion or pneumothorax. Streaky medial basilar opacities likely represent atelectasis/aspiration change. The cardiac silhouette appears enlarged accounting for technique. No focal osseous lesions or acute osseous findings are detected. Preliminary Report Dictated by Resident: Denisha Gutierrez Lab Results: Lab Results CBC WITH DIFF - Abnormal Result Value Ref Range WBC 5.91 4.20 - 10.70 10*3/?L RBC 4.63 4.26 - 5.52 10*6/?L HGB 14.5 12.2 - 16.4 g/dL HCT 41.2 38.4 - 49.3 % MCV 89.0 81.7 - 95.6 fL MCH 31.3 26.1 - 32.7 pg MCHC 35.2 (*) 31.2 - 35.0 g/dL RDW-SD 40.5 38.5 - 51.6 fL RDW-CV 12.4 12.1 - 15.4 % PLT 207 150 - 328 10*3/?L MPV 10.2 9.8 - 13.0 fL NRBC/100 WBC 0.0 0.0 - 10.0 /100 WBCs NRBC x10 3 <0.01 10*3/?L GRAN MAT (NEUT) % 55.6 % IMM GRAN % 0.50 % LYMPH % 37.7 % MONO % 5.1 % EOS % 0.8 % BASO % 0.3 % GRAN MAT x10 3 (ANC) 3.28 1.99 - 6.95 10*3/uL IMM GRAN x10 3 0.03 0.00 - 0.06 10*3/uL LYMPH x10 3 2.23 1.09 - 3.23 10*3/uL MONO x10 3 0.30 (*) 0.36 - 1.02 10*3/uL EOS x10 3 0.05 (*) 0.06 - 0.53 10*3/uL BASO x10 3 <0.03 0.01 - 0.09 10*3/uL TROPONIN I - Normal TROPONIN I 0.011 <=0.034 ng/mL LACTIC ACID WHOLE BLOOD - Normal LACTIC ACID 1.52 0.50 - 2.20 mmol/L MAGNESIUM - Normal MAGNESIUM 1.9 1.7 - 2.4 mg/dL URINE DRUG (IMMUNOASSAY) - COMPREHENSIVE DRUG SCREEN W/O REFLEX - Normal AMPHET Negative Negative DYLAN U Negative Negative BENZO U Negative Negative Cocaine Metabolite Negative Negative METHADONE Negative Negative OPIATES Negative Negative PCP Negative Negative THC Negative Negative COMP. METABOLIC PANEL (93986) NA 141 135 - 145 mmol/L K 3.5 3.5 - 5.0 mmol/L CL 107 98 - 108 mmol/L CO2 TOTAL 25 23 - 31 mmol/L AGAP 9 2 - 16 BUN 11 7 - 23 mg/dL GLUCOSE 106 70 - 110 mg/dL CREATININE 0.99 0.60 - 1.25 mg/dL TOTAL BILI 0.4 0.1 - 1.1 mg/dL CALCIUM 8.7 8.6 - 10.6 mg/dL T PROTEIN 7.1 6.3 - 8.2 g/dL ALBUMIN 4.3 3.5 - 5.0 g/dL ALK PHOS 75 34 - 122 U/L ALTv 50 5 - 50 U/L AST(SGOT) 36 13 - 40 U/L eGFR 96.9 mL/min/1.73m2 ETHANOL ALCOHOL 154 mg/dL URINALYSIS EKG: If EKG completed, see Procedure Note. Orders and Treatments: Orders Placed This Encounter Procedures XR CHEST 1 VW CBC WITH DIFF COMP. METABOLIC PANEL (24517) TROPONIN I Lactic Acid Whole Blood Lactic Acid Whole Blood Magnesium ETHANOL URINALYSIS URINE DRUG (IMMUNOASSAY) - COMPREHENSIVE DRUG SCREEN W/O REFLEX Orders Placed This Encounter Medications NaCl 0.9% (NS) bolus infusion 1,000 mL First Provider Eval: ED Events Date/Time Event User Comments 10/24/23319 Medical Screening Begins DYAN LOPEZ DO -- 10/24/23319 First Provider Evaluation DYAN LOPEZ DO -- ED COURSE Diagnosis/Impression as of 10/24/23 0510 Seizure Tachycardia Alcoholic intoxication without complication Procedures: EKG-12 Lead ROUTINE ONCE Date/Time: 10/24/2023 3:23 AM Performed by: Dyan Lopez DO Authorized by: Dyan Lopez DO ECG interpreted by ED Physician in the absence of a baggage agent supervisor: yes Interpretation: Interpretation: abnormal Rate: ECG rate: 119 ECG rate assessment: tachycardic Rhythm: Rhythm: sinus tachycardia Ectopy: Ectopy: none QRS: QRS axis: Normal QRS intervals: Normal QRS conduction: normal ST segments: ST segments: Normal T waves: T waves: normal Q waves: Abnormal Q-waves: not present MDM: Medical Decision Making The patient presents from home with EMS for evaluation for seizure. He denies any history of epilepsy. Upon EMS arrival he was noted to have 2 additional episodes that may have appeared to be seizures. He was then given 2 mg IV Ativan by EMS and has had no further episodes since. He does have a history of high blood pressure takes medications for this. He complains of pain to the left side of his chest wall that is worse with breathing as well as movement of his arm. He denies any injury or trauma. No cough or URI symptoms. No fevers or chills. The patient is tachycardic upon arrival to the ER. He is afebrile. His lungs are clear bilaterally. His abdomen is soft and nontender. He has no facial asymmetry. Handgrip right equals left. Muscle strength is 5/5 to upper extremities and lower extremities bilaterally. His EKG shows a sinus tachycardia but no STEMI Will monitor the patient here in the ER for additional seizure activity. Will check laboratory studies including lactic acid level as well as a chest x-ray. Final disposition pending. 0508 - the patient is doing well here in the [facility]. Laboratory studies show a normal lactic acid level, which makes it unlikely he had several seizures today. His alcohol level is also high showing he is intoxicated. CXR shows no cardiopulmonary issues. He is more awake and acting appropriate. He remains stable here in the [facility] and is ok for dc home with pcp f/u. Problems Addressed: Alcoholic intoxication without complication: acute illness or injury Seizure: acute illness or injury Tachycardia: acute illness or injury Amount and/or Complexity of Data Reviewed Independent Historian: EMS Labs: ordered. Decision-making details documented in ED Course. Radiology: ordered and independent interpretation performed. Decision-making details documented in ED Course. ECG/medicine tests: ordered and independent interpretation performed. Decision-making details documented in ED Course. Risk Prescription drug management. Flowsheet Documentation: Scoring Tools: No data recorded Disposition/Condition: ED Disposition ED Disposition Disch - Home Condition Stable Comment -- Discharge Medications: Patient's Medications START taking these medications No medications on file CONTINUE taking these medications which have NOT CHANGED METHOCARBAMOL 500 MG TABLET Take 1 tablet by mouth 4 (four) times daily as needed for Pain (scale 7-10). START taking Modified Medications as Prescribed No medications on file STOP taking these medications No medications on file Follow-up: Electronically signed by: Dyan Lopez DO 10/24/23 0510 [facility] 2023-01-31 06:20:58 Formatting of this n ote might be different from the original. Pt given printed and verbal discharge instructions regarding Chest pain, encouraged hydration, Discussed ibuprofen and to take with food to avoid GI distress. Pt verbalized understanding of instructions, pt awake alert oriented, resp reg unlabored, skin w/d, color appropriate for race, moves all ext well,pt encouraged to follow up with pcp and or cardiology Advised to seek medical attention for new/prolonged/worsening of symptoms, Symptoms improved No adverse reaction to meds given in ER noted upon discharge PIV d'cd, dressing to site, catheter in tact. Awake, alert oriented, resp reg unlabored, skin w/d, pt leaving amb with steady gait, in no apparent distress, Christine Rivera RN [facility] 2023-01-31 01:27:41 Formatting of this n ote might be different from the original. Pt reports a pain in his chest. Pain is intermediate and last approximately 1 minute long. Pt oxygen saturation dropped down to 89% during episode and resume to 95% after episode passed. Tila Brooks RN [facility] 2023-01-31 00:54:49 Formatting of this n ote might be different from the original. Patient to ED with . Per , patient is having seizure and chest pain an hour ago. Per , patient took a couple of beers last night. Elton Yun RN [facility] 2023-01-31 00:48:00 Formatting of this n ote is different from the original. 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 Per , patient drank 6 beers last night. She states that he has had left-sided chest pain previously and when he gets the pain "he has these seizures". She describes him shaking and "foaming at the mouth", without change in mental status. The patient describes sharp left-sided chest pain that radiates down his arm to the left elbow and is 6-7/10. He had no medicine prior to arrival but, per , he is supposed to have nitroglycerin but is out of it. He reports nausea and one episode of vomiting but no diarrhea, abdominal pain, shortness of breath, dizziness, vision changes. The patient has had similar pain in the past and, per , he went to [facility] but they were unable to complete his catheterization due to a rapid heartbeat. He then went home with a Holter monitor, which he did not wear. Review of Systems: Review of Systems Constitutional: Negative for fever. SEE HPI for other pertinent positives & negatives. HENT: Negative for congestion, sinus pressure and sore throat. Respiratory: Negative for cough, chest tightness and shortness of breath. Cardiovascular: Positive for chest pain. Negative for palpitations and leg swelling. Gastrointestinal: Positive for nausea and vomiting. Negative for abdominal pain and diarrhea. Genitourinary: Negative for dysuria and hematuria. Musculoskeletal: Negative for arthralgias, back pain and myalgias. Skin: Negative for rash and wound. Neurological: Positive for seizures. Negative for dizziness, weakness and headaches. Past Medical History/Immunizations: Past Medical History: Diagnosis Date HTN (hypertension) Tetanus received in last 5 years: Yes Problem List: There is no problem list on file for this patient. Allergies: Allergies Allergen Reactions Toradol [Ketorolac Tromethamine] Anxiety Past Social History: Tobacco Use Every Day; Types: Cigarettes Smokeless Tobacco: Current user of smokeless tobacco; Types: Chew, Snuff. Alcohol Use Yes. Comments: Occasionally Drug Use Never. Past Surgical History: Past Surgical History: Procedure Laterality Date APPENDECTOMY CHOLECYSTECTOMY Physical Exam: ED Triage Vitals [01/31/23 0058] Weight 93 kg (205 lb) Actual or estimated Estimated by patient/family report Height 1.778 m (5' 10") BP (!) 160/106 Pulse 103 Resp 16 Temp 36.8 ?C (98.3 ?F) Temp source Oral SpO2 93 % Measured on Room air Physical Exam Vitals and nursing note reviewed. Constitutional: General: He is awake. He is in acute distress (Patient is unable to sit still which he reports is due to the chest pain. He is continually changing positions, even lying down upside down in the bed.). Appearance: Normal appearance. He is well-developed and overweight. He is not toxic-appearing or diaphoretic. HENT: Head: Normocephalic and atraumatic. Right Ear: External ear normal. Left Ear: External ear normal. Nose: Nose normal. No rhinorrhea. Mouth/Throat: Mouth: Mucous membranes are moist. Tongue: No lesions. Pharynx: Oropharynx is clear. Eyes: General: No scleral icterus. Extraocular Movements: Extraocular movements intact. Cardiovascular: Rate and Rhythm: Normal rate and regular rhythm. Heart sounds: No murmur heard. No gallop. Pulmonary: Effort: Pulmonary effort is normal. No accessory muscle usage, respiratory distress or retractions. Breath sounds: Normal breath sounds. No decreased breath sounds, wheezing, rhonchi or rales. Chest: Chest wall: Tenderness (On the left side of the chest that does not completely reproduce the pain of chief complaint) present. Abdominal: General: There is no distension. Palpations: Abdomen is soft. Abdomen is not rigid. Tenderness: There is no abdominal tenderness. There is no guarding or rebound. Genitourinary: Comments: Deferred Musculoskeletal: General: No tenderness or deformity. Normal range of motion. Cervical back: Neck supple. No muscular tenderness. Right lower leg: No tenderness. No edema. Left lower leg: No tenderness. No edema. Comments: General Back: normal inspection, painless range of motion Skin: General: Skin is warm and dry. Findings: No erythema or rash. Neurological: General: No focal deficit present. Mental Status: He is alert and oriented to person, place, and time. Psychiatric: Attention and Perception: He is attentive. Mood and Affect: Affect normal. Mood is anxious. Speech: Speech normal. Behavior: Behavior is uncooperative and agitated. Cognition and Memory: Cognition and memory normal. Radiology: (Reviewed by me) Hospital Encounter on 01/31/23 CT CHEST PULMONARY ANGIOGRAM Narrative Ordering physician: SRIDEVI SEGAL Indication: Chest pain, short of breath Comparison: Chest radiograph dated 03/27/2022 Technique: CTA of the chest was performed following the administration of intravenous contrast material. Three-dimensional reformats were generated following completion of the exam. CT scan was performed according to ALARA (as low as reasonably achievable) policy. Findings: The visualized thyroid gland is within normal limits. There is no thoracic aortic aneurysm or dissection. The heart is moderately enlarged without significant pericardial effusion. No filling defect is appreciated in the pulmonary arteries to the level of the proximal segmental arteries. No pathologically enlarged mediastinal or hilar lymph nodes are identified. No acute process is identified in the upper abdomen. There is mild dependent atelectasis in the lungs bilaterally.. Bone windows through the chest demonstrate no osseous destructive lesion. Impression Impression: No CTA evidence for pulmonary embolus to the level of the proximal segmental arteries. Imaging of the distal segmental and subsegmental arteries is limited by suboptimal opacification. Mild dependent atelectasis in the lungs bilaterally without other acute pulmonary process. Moderate cardiomegaly without pericardial effusion. RL: [id number] AFC: [id number] Lab Results (24h): (Reviewed by me) Recent Results (from the past 24 hour(s)) CBC WITH DIFF Collection Time: 01/31/23 1:07 AM Result Value Ref Range WBC 7.38 4.20 - 10.70 10*3/?L RBC 4.60 4.26 - 5.52 10*6/?L HGB 14.4 12.2 - 16.4 g/dL HCT 40.7 38.4 - 49.3 % MCV 88.5 81.7 - 95.6 fL MCH 31.3 26.1 - 32.7 pg MCHC 35.4 (H) 31.2 - 35.0 g/dL RDW-SD 40.5 38.5 - 51.6 fL RDW-CV 12.5 12.1 - 15.4 % PLT 214 150 - 328 10*3/?L MPV 10.0 9.8 - 13.0 fL NRBC/100 WBC 0.0 0.0 - 10.0 /100 WBCs NRBC x10^3 <0.01 10*3/?L GRAN MAT (NEUT) % 52.8 % IMM GRAN % 0.50 % LYMPH % 40.9 % MONO % 4.2 % EOS % 1.2 % BASO % 0.4 % GRAN MAT x10^3(ANC) 3.89 1.99 - 6.95 10*3/uL IMM GRAN x10^3 0.04 0.00 - 0.06 10*3/uL LYMPH x10^3 3.02 1.09 - 3.23 10*3/uL MONO x10^3 0.31 (L) 0.36 - 1.02 10*3/uL EOS x10^3 0.09 0.06 - 0.53 10*3/uL BASO x10^3 0.03 0.01 - 0.09 10*3/uL COMP. METABOLIC PANEL (01878) Collection Time: 01/31/23 1:07 AM Result Value Ref Range NA 145 135 - 145 mmol/L K 3.5 3.5 - 5.0 mmol/L CL 107 98 - 108 mmol/L CO2 TOTAL 24 23 - 31 mmol/L AGAP 14 2 - 16 BUN 9 7 - 23 mg/dL GLUCOSE 108 70 - 110 mg/dL CREATININE 0.86 0.60 - 1.25 mg/dL TOTAL BILI 0.4 0.1 - 1.1 mg/dL CALCIUM 9.6 8.6 - 10.6 mg/dL T PROTEIN 7.8 6.3 - 8.2 g/dL ALBUMIN 4.5 3.5 - 5.0 g/dL ALK PHOS 72 34 - 122 U/L ALTv 61 (H) 5 - 50 U/L AST(SGOT) 35 13 - 40 U/L eGFR 97.5 mL/min/1.73m2 LIPASE Collection Time: 01/31/23 1:07 AM Result Value Ref Range LIPASE 49 0 - 220 U/L TROPONIN I Collection Time: 01/31/23 1:07 AM Result Value Ref Range TROPONIN I 0.006 <=0.034 ng/mL N-TERMINAL PRO-BNP Collection Time: 01/31/23 1:07 AM Result Value Ref Range NT-proBNP <20 <=125 pg/mL MAGNESIUM Collection Time: 01/31/23 1:07 AM Result Value Ref Range MAGNESIUM 2.2 1.7 - 2.4 mg/dL ETHANOL Collection Time: 01/31/23 1:07 AM Result Value Ref Range ALCOHOL 214 mg/dL CREATINE KINASE Collection Time: 01/31/23 1:07 AM Result Value Ref Range CK 102 33 - 194 U/L URINALYSIS Collection Time: 01/31/23 1:32 AM Result Value Ref Range APPEARANCE Clear Clear COLOR Colorless (A) Yellow PH 6.0 4.8 - 8.0 SP GRAVITY 1.002 (L) 1.003 - 1.030 GLU U QUAL Normal Normal BLOOD Negative Negative KETONES Negative Negative PROTEIN Negative Negative UROBILIN Normal Normal BILIRUBIN Negative Negative NITRITE Negative Negative LEUK MENG Negative Negative RBC/HPF 0 0 - 3 HPF WBC/HPF <1 0 - 5 HPF BACTERIA Negative Negative URINE DRUG (IMMUNOASSAY) - COMPREHENSIVE DRUG SCREEN W/O REFLEX Collection Time: 01/31/23 1:32 AM Result Value Ref Range AMPHET Negative Negative DYLAN U Negative Negative BENZO U Negative Negative Cocaine Metabolite Negative Negative METHADONE Negative Negative OPIATES Presumptive Positive (A) Negative PCP Negative Negative THC Negative Negative EKG: (interpreted by me) Sinus rhythm with PACs, IRBBB, normal axis, inverted Ts inferiorly, no ST changes Rate: 88 Compared to EKG from 03/27/2022, this EKG is no longer shows tachycardia or ectopy but the T wave changes and bundle branch block appear new. Orders and Treatments: Orders Placed This Encounter Procedures CT CHEST PULMONARY ANGIOGRAM CBC WITH DIFF COMP. METABOLIC PANEL (71365) LIPASE TROPONIN I N-TERMINAL PRO-BNP MAGNESIUM ETHANOL URINALYSIS URINE DRUG (IMMUNOASSAY) - COMPREHENSIVE DRUG SCREEN W/O REFLEX CREATINE KINASE TROPONIN I Orders Placed This Encounter Medications morpHINE (4 mg/mL) injection 4 mg ondansetron (ZOFRAN (PF)) injection 4 mg DISCONTD: aspirin tablet 325 mg aspirin tablet 325 mg ondansetron (ZOFRAN (PF)) injection 4 mg NaCl 0.9% (NS) bolus infusion 1,000 mL nitroglycerin (NITROSTAT) sublingual tablet 0.4 mg haloperidol lactate (HALDOL) injection 5 mg morpHINE (4 mg/mL) injection 4 mg iopamidol (ISOVUE 370-500 mL) injection 100 mL DISCONTD: alum-mag hydroxide-simeth (MAALOX PLUS / MAG-AL PLUS) 200-200-20 mg/5 mL suspension 30 mL famotidine (PEPCID (PF)) injection 20 mg maalox:diphenhydrAMINE:lidocain e 2 % viscous 1:1:1 (FIRST-MOUTHWASH BLM) oral suspension 15 mL ED COURSE ED Course as of 01/31/23 0550 TueJan 31, 2023 0547 Patient remains pain-free. He wants to go home. This does not appear to have been a significant cardiac event, nor does it appear to have been a seizure. Patient to follow-up with PCP and/or cardiology this week. Return precautions given. [LS] 0546 TROPONIN I Unchanged [LS] 0411 Patient states he is now chest pain-free. Results discussed with patient, , and mother. As patient arrived very soon after the chest pain started, will check a repeat troponin now and, if normal, will DC home. Recommend patient follow-up with a baggage agent supervisor and his mother states that she will give him the name of hers. The patient is now able to clarify what happened at [facility] (see HPI). He states that they were unable to reproduce the abnormal rhythm that was seen at [facility] and so they were not able to do planned ablation. [LS] 0350 CT CHEST PULMONARY ANGIOGRAM Impression: No CTA evidence for pulmonary embolus to the level of the proximal segmental arteries. Imaging of the distal segmental and subsegmental arteries is limited by suboptimal opacification. Mild dependent atelectasis in the lungs bilaterally without other acute pulmonary process. Moderate cardiomegaly without pericardial effusion. [LS] 0329 Patient requesting medication for heartburn. States that he takes omeprazole at home. Will give Pepcid and GI cocktail. [LS] 0259 URINE DRUG (IMMUNOASSAY) - COMPREHENSIVE DRUG SCREEN W/O REFLEX(!) (+) opiates likely due to morphine given in ED [LS] 0259 N-TERMINAL PRO-BNP unremarkable [LS] 0258 TROPONIN I within normal limits [LS] 0258 URINALYSIS(!) unremarkable [LS] 0203 TROPONIN I within normal limits [LS] 0146 Refusing further pain med, despite yelling out in pain [LS] 0145 COMP. METABOLIC PANEL (71683)(!) unremarkable [LS] 0145 MAGNESIUM within normal limits [LS] 0145 LIPASE within normal limits [LS] 0145 CREATINE KINASE within normal limits, which is not consistent with a significant seizure just prior to arrival [LS] 0145 CBC WITH DIFF(!) unremarkable [LS] 0145 ETHANOL =214 [LS] ED Course User Index [LS] Sridevi Segal MD Diagnosis/Impression as of 01/31/23 0550 Chest pain at rest Seizure - unsure if was true seizure Hypertension, unspecified type Diagnosis/Impression: ICD-10-CM 1. Chest pain at rest R07.9 2. Seizure R56.9 Disposition/Condition: ED Disposition None Discharge Medications: Patient's Medications No medications on file Follow-up: MDM: Medical Decision Making Differential Diagnosis for this patient's chest pain includes angina, acute [place], CHF, pericardial effusion/pericarditis, pneumonia, pulmonary embolism, acute exacerbation of lung disease, rib fx or other trauma, GI problem, anxiety. Labs, monitor, chest x-ray, aspirin, morphine, Zofran, IV fluids, seizure precautions. See ED course Problems Addressed: Chest pain at rest: complicated acute illness or injury Hypertension, unspecified type: chronic illness or injury Seizure: undiagnosed new problem with uncertain prognosis Amount and/or Complexity of Data Reviewed Independent Historian: spouse External Data Reviewed: labs, radiology, ECG and notes. Labs: ordered. Decision-making details documented in ED Course. Radiology: ordered. Decision-making details documented in ED Course. ECG/medicine tests: ordered and independent interpretation performed. Details: See above Risk OTC drugs. Prescription drug management. Parenteral controlled substances. Decision regarding hospitalization. History, physical exam findings, results of visit, differential diagnosis, medication regimens and plan of future care have been considered. Additional MDM may be found in the ED course. Differential diagnosis considered and final disposition made based on information gathered during evaluation and may not be completely ruled out. Vital signs were rechecked before final disposition and determined to be stable. Portions of this note were completed using [employer]. Occasional phonetic or grammatical errors may escape proofreading. Electronically signed by: Sridevi Segal M.D., [facility] [employer] Clinical Professor of Emergency Medicine 01/31/2023 12:50 AM Sridevi Segal MD 01/31/23 0602 [facility] 2022-01-11 09:48:00 [facility] ([facility]) Med Order Sheet REPORT #: [id number] REPORT STATUS: Signed DATE: 01/11/22 TIME: 947 PATIENT: MAURICIO BLISS UNIT #: [id number] ROOM #: NC.5201 BED: 1 : 80 AGE: 41 SEX: M ATTEND: Gopal Lopes MD ADM AUTHOR: Deborah Retana ATT ENTION *EDITS and/or ADDENDA must be made in Patient Keeper for this note. * * Edits and ammendments created in [facility] are not visible * * in Patient Keeper or the legal medical record (HPF). * Discharge Medication Reconciliation DISCHARGE MEDICATION LIST amLODIPine Tab (Norvasc Tab) Dose: 5 MG PO DAILY - TAKE 1 TABLET BY MOUTH EVERY DAY; #30 - SIG Obtained From DrFirst TAKE 1 TABLET BY MOUTH EVERY DAY; #30 - SIG Obtained From DrFirst TAKE 1 TABLET BY MOUTH EVERY DAY; #30 - SIG Obtained From DrFirst omeprazole capsule,delayed release Dose: 40 MG PO BID Dicyclomine Cap (Bentyl Cap) Dose: 10MG PO TID PRN abdominal cramps/pain, Disp: 20 capsule, Refills: 0 New: Ondansetron ODT Tab (Zofran ODT Tab) Dose: 4 MG PO Q6H PRN nausea/vomiting, Disp: 20 tablet, Refills: 0 Hosp: Ciprofloxacin Tab (Cipro Tab) Dose: 500 MG PO Q12H for colitis, Disp: 16 tablet, Refills: 0 Hosp: metroNIDAZOLE Tab (Flagyl Tab) Dose: 500 MG PO Q8H for colitis, Disp: 24 tablet, Refills: 0 STOPPED HOSPITAL MEDICATIONS Dc'd: Acetaminophen Tab (Tylenol Tab) 650MG PO Q4H PRN pain 1-3/temp > 100.5/headacheDc'd: Acetaminophen/Codeine #3 Tab (Tylenol #3 Tab) 1TAB PO Q4H PRN pain scale 4-6Dc'd: guaiFENesin Oral Liquid (Robitussin Sugar-Free Oral Liq) 200MG PO Q4H PRN coughDc'd: hydrALAZINE Inj (Apresoline Inj) 10MG IV Q6H PRN sbp>160Dc'd: Melatonin Tab 3MG PO BEDTIME PRN insomniaDc'd: morphine Inj (morphine Inj) 2MG IV Q4H PRN pain scale 7-10Dc'd: Piperacillin/Tazo Inj (Zosyn Inj) 3.375GM IV Q8Hin NS (Sodium Chloride 0.9%) 100ML Dc'd: Polyethylene Glycol Powder (Miralax Powder) 1PKT PO DAILY PRN constipation at 0948 ATT ENTION *EDITS and/or ADDENDA must be made in Patient Keeper for this note. * * Edits and ammendments created in [employer] are not visible * * in Patient Keeper or the legal medical record ([facility]). * RPT #: [id number] END OF REPORT FORMERLY [facility] 2022-01-11 09:48:00 [facility] ([facility]) Hospitalist D/C Summary REPORT #: [id number] REPORT STATUS: Signed DATE: 01/11/22 TIME: 947 PATIENT: MAURICIO BLISS UNIT #: [id number] ROOM #: NC.[id number] BED: 1 : 80 AGE: 41 SEX: M ATTEND: Gopal Lopes MD [facility] AUTHOR: Deborah Retana ATT ENTION *EDITS and/or ADDENDA must be made in Patient Keeper for this note. * * Edits and ammendments created in [employer] are not visible * * in Patient Keeper or the legal medical record ([facility]). * -- PROBLEMS/PROCEDURES -- ADMISSION DATE: [...] polyps presented as a direct transfer from [facility] ER with c/o diffuse abd pain (greatest in RUQ) x 4 days. Describes the pain as crampy, burning, and sharp with no aggravating factors and temporarily mildly alleviated by IV Morphine. Reports associated nausea, vomiting x 6 episodes (last emesis last night), and diarrhea (last episode yesterday AM). Denies fever, chills, CP, palpitations, SOB, hematochezia, melena, hematemesis, urinary symptoms, or any other complaints. At outside ER, CT Abd/Pelvis w/o contrast showed "Loops of bowel w/o wall thickening or obstruction. Thickening of wall of cecum w/ inflammatory and edematous changes adjacent to cecum. Small lymph nodes also identified. Findings c/w typhlitis. No free air, free fluid, or fluid collection." Labs essentially unremarkable. Admitted for further eval and mgmt with GI and General Surgery consultations placed by ER. HOSPITAL COURSE: Pt was [...] Continue Zosyn --> Transition to Cipro + Flagyl upon DC to complete 10-day course of abx total - Continue Bentyl, PRN analgesics/antiemetics - No acute intervention per General Surgery - Advised outpt f/u with his GI in 1-2 wks to schedule colonoscopy as he lives in [facility] GERD - Continue PPI HTN - Continue home Amlodipine DVT PPx: SCD GI PPx: PPI CODE STATUS: Full Dispo: Home There were no acute events overnight. Pt was seen and examined on day of discharge. States he's feeling better. Abd pain significantly improved compared to initial presentation and currently rates it as 2/10 in severity. Denies any further N/V/D or other complaints. Tolerating soft diet. AFVSS. Pt stable for discharge home today. Cleared by GI and General Surgery. Advised outpt f/u with PCP and his primary GI as noted above. eRx sent for PO abx, Bentyl PRN, and Zofran PRN. Pt expressed understanding and agreed to treatment plan. Answered all questions. Strict ED return precautions given. -- DISCHARGE MEDICATIONS -- ALLERGIES: ketorolac (Unknown [...] Cap (Bentyl Cap) 10MG PO TID PRN abdominal cramps/pain, Disp: 20 capsule, Refills: 0 metroNIDAZOLE Tab (Flagyl Tab) 500 MG PO Q8H for colitis, Disp: 24 tablet, Refills: 0 omeprazole capsule,delayed release 40 MG PO BID Ondansetron ODT Tab (Zofran ODT Tab) 4 MG PO Q6H PRN nausea/vomiting, Disp: 20 tablet, Refills: 0 -- DISCHARGE INSTRUCTIONS -- PK DISCHARGE ORDERS: DC Order - No eC 2019. Details: Details: Order number: [id number] Category: PKDC - PK Discharge Orders Order status: Transmitted Details: Discharge order: Yes Discharge to: Home/Self Care Diet: Cardiac Activity: As Tolerated PCP: Your PCP PCP follow up timeframe: In 1-2 weeks Additional instructions: 1. Complete antibiotics until finished. 2. Follow-up outpatient with your peanut grader in 1 to 2 weeks to schedule a colonoscopy. Additional Discharge Routines: PCP Follow-Up Ordered by: Deborah Retana Jan 11, 2022 9:48am Entered by: Deborah Retana Service date: Jan 11, 2022 9:46am Discharge w/Instructions:PKDC - PK Discharge Orders In 1-2 weeks; Your PCP; PCP Follow-Up ADDTIONAL DISCHARGE INSTRUCTIONS: Emergency Instructions: The patient was instructed to present to the nearest Emergency Department or call 911 should their symptoms return or worsen.; -- OBJECTIVE -- VITALS [...] intact judgment and insight. -- DATA -- LABS BASIC [...] - Unable to obtain an accurate home medication list at this time. The patient is in an urgent or emergent medical situation where time is of the essence. To delay treatment would jeopardize the patient's health status on the day of the encounter. -VTE PROPHYLAXIS -GENERAL- Yes TYPE OF VTE mechanical compression device -- ATTESTATION -- TIME SPENT ON PATIENT CARE: - Discharge planning 45 minutes - > 50% of time spent on Counseling/Care Coordination CARE ACTIVITIES / CARE COORDINATION: - I have reviewed the history and repeated the moncada elements - I have seen and examined this patient - I have reviewed the progress in the clinical course since the last examination - I have discussed the patient's condition with other members of the care team Signed in PatientKeeper by Deborah Retana on 01/11/22 at 20:31 Cosigned by TRAVIS RAMACHANDRAN MD on 01/12/22 at 07:10 at 0710 at 0710 ATT ENTION *EDITS and/or ADDENDA must be made in Patient Keeper for this note. * * Edits and ammendments created in [employer] are not visible * * in Patient Keeper or the legal medical record (HPF). * [facility] #: [id number] END OF REPORT [facility] 2022-01-11 09:06:00 [facility] ([facility]) Gastroenterology Prog. Note REPORT #: [id number] REPORT STATUS: Signed DATE: 01/11/22 TIME: 905 PATIENT: MAURICIO BLISS UNIT #: [id number] ROOM #: NC.5201 BED: 1 : 80 AGE: 41 SEX: M ATTEND: Gopal Lopes MD ADM AUTHOR: Mateo Martin MD ATT ENTION *EDITS and/or ADDENDA must be made in Patient Keeper for this note. * * Edits and ammendments created in [email or web address] are not visible * * in Patient Keeper or the legal medical record (HPF). * -- ASSESSMENT AND PLAN -- PROBLEMS: 1: Abdominal pain A/P: Better. He can be discharged home with a total of 10days on antibiotics. 2: Colon polyps A/P: Will need out patient colonoscopy to further evaluate. Patient lives on the other [facility] of the [facility]. He says that he has a GI doctor that he follows regularly. Upon discharge, he will see him in a week or 2 for scheduling a colonoscopy. 3: Diarrhea A/P: Some diarrhea today. Stool testing pending. 4: Colitis A/P: On IV contrast CT shows colitis in the right colon. With a short duration of illness, this is most likely infectious etiology., -- SUBJECTIVE -- HPI: patient is doing [...] IV .Q10H PIPERAC/TAZOBACTAM with/in SODIUM CHLORIDE 100 mL BAG 3.375 GM IV Q8H hydrALAZINE HCL [...] in PatientKeeper by Mateo Martin MD on 01/11/22 at 09:11 at 0911 ATT ENTION *EDITS and/or ADDENDA must be made in Patient Keeper for this note. * * Edits and ammendments created in [facility] are not visible * * in Patient Keeper or the legal medical record (HPF). * [facility] #: [id number] END OF REPORT [facility] 2022-01-10 13:00:00 [facility] ([facility]) Hospitalist Progress Note REPORT #: [id number] REPORT STATUS: Signed DATE: 01/10/22 TIME: 1300 PATIENT: MAURICIO BLISS UNIT #: [id number] ROOM #: NC.5201 BED: 1 : 80 AGE: 41 SEX: M ATTEND: Gopal Lopes MD ADM AUTHOR: Deborah Retana ATT ENTION *EDITS and/or ADDENDA must be made in Patient Keeper for this note. * * Edits and ammendments created in [employer] are not visible * * in Patient [...] Advised outpt f/u with his GI for colonoscopy as he lives in [facility] Diarrhea - resolved - f/u stool studies if able - Monitor for improvement GERD - Continue PPI HTN - Continue home Amlodipine - PRN IV Hydralazine CONSULTANTS: GI General Surgery ADDITIONAL COMMENTS: DVT PPx: SCD GI PPx: PPI CODE STATUS: Full Plan: d/w pt, RN Dispo: Home pending tolerating advanced diet, clinical improvement and clearance by consultants. Possible DC [...] IV .Q10H PIPERAC/TAZOBACTAM with/in SODIUM CHLORIDE 100 mL BAG 3.375 GM IV Q8H hydrALAZINE HCL [...] - Unable to obtain an accurate home medication list at this time. The patient is in an urgent or emergent medical situation where time is of the essence. To delay treatment would jeopardize the patient's health status on the day of the encounter. -VTE PROPHYLAXIS -GENERAL- Yes TYPE OF VTE mechanical compression device -- ATTESTATION -- TIME SPENT ON PATIENT CARE: - Direct 35 minutes - > 50% of time spent on Counseling/Care Coordination CARE ACTIVITIES / CARE COORDINATION: - I have reviewed the history and repeated the moncada elements - I have seen and examined this patient - I have reviewed the progress in the clinical course since the last examination - I have discussed the patient's condition with other members of the care team Signed in PatientKeeper by Deborah Retana on 01/10/22 at 15:14 Cosigned by KATIE PERDUE MD on 01/11/22 at 06:54 at 0654 at 0654 ATT ENTION *EDITS and/or ADDENDA must be made in Patient Keeper for this note. * * Edits and ammendments created in [facility] are not visible * * in Patient Keeper or the legal medical record ([facility]). * RPT #: [id number] END OF REPORT [facility] 2022-01-10 12:39:00 [facility] ([facility]) Gastroenterology Prog. Note REPORT #: [id number] REPORT STATUS: Signed DATE: 01/10/22 TIME: 1239 PATIENT: MAURICIO BLISS UNIT #: [id number] ROOM #: NC.5201 BED: 1 : 80 AGE: 41 SEX: M ATTEND: Gopal Lopes MD ADM AUTHOR: Mateo Martin MD ATT ENTION *EDITS and/or ADDENDA must be made in Patient Keeper for this note. * * Edits and ammendments created in [employer] are not visible * * in Patient Keeper or the legal medical record ([facility]). * -- ASSESSMENT AND PLAN -- PROBLEMS: 1: Abdominal pain A/P: Better. 2: Colon polyps A/P: Will need out patient colonoscopy to further evaluate. [place] part [place] [...] of illness, this is most likely infectious etiology., -- SUBJECTIVE -- HPI: Patient`s pain is better. No other GI issues. Improving in diarrhea also. -REVIEW OF SYSTEMS- GENERAL: Negative for fever, malaise, fatigue. EYES: Negative for blurry vision. No diplopia. EARS/NOSE/THROAT: Negative for sore throat. No otalgia. No rhinorrhea. BREAST: Negative for change in shape, swelling, masses, nipple discharge, pain, skin changes. RESPIRATORY: Negative for dyspnea or wheeze. No cough. CARDIOVASCULAR: Negative for chest pain or palpitations. No extremity swelling. GASTROINTESTINAL: Positive for abdominal pain and N/V/D. GENITOURINARY: Negative for dysuria, frequency, or urgency. No gross hematuria. MUSCULOSKELETAL: Negative for joint stiffness, pain, or arthralgias. SKIN: Negative for rashes. No [...] IV .Q10H PIPERAC/TAZOBACTAM with/in SODIUM CHLORIDE 100 mL BAG 3.375 GM IV Q8H hydrALAZINE HCL [...] in PatientKeeper by Mateo Martin MD on 01/10/22 at 12:42 at 1242 ATT ENTION *EDITS and/or ADDENDA must be made in Patient Keeper for this note. * * Edits and ammendments created in [email or web address] are not visible * * in Patient Keeper or the legal medical record ([facility]). * RPT #: [id number] END OF REPORT [facility] 2022-01-10 11:31:00 [facility] ([facility]) Progress Note REPORT #: [id number] REPORT STATUS: Signed DATE: 01/10/22 TIME: 1131 PATIENT: MAURICIO BLISS UNIT #: [id number] ROOM #: NC.5201 BED: 1 : 80 AGE: 41 SEX: M ATTEND: Gopal Lopes MD ADM AUTHOR: Vishal De La Garza MD ATT ENTION *EDITS and/or ADDENDA must be made in Patient Keeper for this note. * * Edits and ammendments created in [employer] are not visible * * in Patient Keeper or the legal medical record ([facility]). * -- ASSESSMENT AND PLAN -- PROBLEMS: 1: Colitis A/P: Reviewed contrasted CT scan from yesterday that shows right colon up to transverse colon colitis. No perforation or abscess- Per outside CT scan that was noncontrasted [...] cough. CARDIOVASCULAR: Negative for chest pain or palpitations. No extremity swelling. GASTROINTESTINAL: Refer to HPI GENITOURINARY: Negative for dysuria, frequency, or urgency. No gross hematuria. MUSCULOSKELETAL: Negative for joint stiffness, pain, or arthralgias. SKIN: Negative for rashes. No [...] and rest of the abdomen, not diffusely peritoneal MUSCULOSKELETAL: No deformity EXTREMITIES: No clubbing, no cyanosis, no edema. SKIN: Intact without significant lesions, or rashes. PSYCHIATRIC: Alert and oriented to time, person, [...] IV .Q10H PIPERAC/TAZOBACTAM with/in SODIUM CHLORIDE 100 mL BAG 3.375 GM IV Q8H hydrALAZINE HCL [...] MD on 01/10/22 at 11:46 at 1146 ATT ENTION *EDITS and/or ADDENDA must be made in Patient Keeper for this note. * * Edits and ammendments created in [facility] are not visible * * in Patient Keeper or the legal medical record ([facility]). * RPT #: [id number] END OF REPORT [facility] 2022-01-10 09:27:00 [facility] ([facility]) Med Order Sheet REPORT #: [id number] REPORT STATUS: Signed DATE: 01/10/22 TIME: 926 PATIENT: MAURICIO BLISS UNIT #: [id number] ROOM #: NC.5201 BED: 1 : 80 AGE: 41 SEX: M ATTEND: Gopal Lopes MD [facility] AUTHOR: Deborah Retana ATT ENTION *EDITS and/or ADDENDA must be made in Patient Keeper for this note. * * Edits and ammendments created in [facility] are not visible * * in Patient Keeper or the legal medical record ([facility]). * Admission Medication Reconciliation -- CONTINUED / CHANGED HOME MEDICATIONS -- Home: amLODIPine Tab (Norvasc Tab) 5 MG PO DAILY (TAKE 1 TABLET BY MOUTH EVERY DAY; #30 - SIG Obtained From...) Hosp: Existing: amLODIPine Tab (Norvasc Tab) 5MG PO DAILY Home: omeprazole capsule,delayed release 40 MG PO BID Hosp: Existing: Pantoprazole DR Tab (Protonix Tab) 40MG PO DAILY at 0927 ATT ENTION *EDITS and/or ADDENDA must be made in Patient Keeper for this note. * * Edits and ammendments created in [email or web address] are not visible * * in Patient Keeper or the legal medical record (HPF). * [facility] #: [id number] END OF REPORT [facility] 2022-01-09 21:30:00 [facility] ([facility]) Gastroenterology Consult REPORT #: [id number] REPORT STATUS: Signed DATE: 01/09/22 TIME: 2129 PATIENT: MAURICIO BLISS UNIT #: [id number] ROOM #: NC.5201 BED: 1 : 80 AGE: 41 SEX: M ATTEND: Gopal Lopes MD ADM AUTHOR: Mateo Martin MD ATT ENTION *EDITS and/or ADDENDA must be made in Patient Keeper for this note. * * Edits and ammendments created in [employer] are not visible * * in Patient Keeper or the legal medical record ([facility]). * -- ASSESSMENT AND PLAN -- PROBLEMS: 1: Abdominal pain A/P: I do not think this typhlitis. Cecal inflammation positive. Patient has had a bout of infectious GI condition which has resolved. But the the pain in the abdomine is due to ACNES which got aggrevated with the infectious etiology. After the CT with contrast is done if negative any organic pathology, will attempt abdominal nerve block. Request to order CT abdomine and pelvis with IV constrast. 2: Colon polyps A/P: Will need out patient colonoscopy to further evaluate. I have given him my Business card to make an appointment in my office in 2 weeks. Also if the discharge [...] same presented as a direct transfer from [facility] ER with c/o diffuse abd pain (greatest in RUQ) x 4 days. Describes the pain as crampy, burning, and sharp with aggrevation of sitting up posture and bending forward. Reports associated nausea, vomiting x 6 episodes (last emesis last night), and diarrhea (last episode yesterday AM). Denies fever, chills, CP, palpitations, SOB, hematochezia, melena, hematemesis, urinary symptoms, or any other complaints. At outside ER, [...] diplopia. EARS/NOSE/THROAT: Negative for sore throat. No otalgia. No rhinorrhea. BREAST: Negative for change in shape, swelling, masses, nipple discharge, pain, skin changes. RESPIRATORY: Negative for dyspnea or wheeze. No cough. CARDIOVASCULAR: Negative for chest pain or palpitations. No extremity swelling. GASTROINTESTINAL: Positive for abdominal pain and N/V/D. GENITOURINARY: Negative for dysuria, frequency, or urgency. No gross hematuria. MUSCULOSKELETAL: Negative for joint stiffness, pain, or arthralgias. SKIN: Negative for rashes. No [...] IV .Q10H PIPERAC/TAZOBACTAM with/in SODIUM CHLORIDE 100 mL BAG 3.375 GM IV Q8H hydrALAZINE HCL [...] in PatientKeeper by Mateo Martin MD on 01/09/22 at 21:38 at 2138 ATT ENTION *EDITS and/or ADDENDA must be made in Patient Keeper for this note. * * Edits and ammendments created in [facility] are not visible * * in Patient Keeper or the legal medical record (HPF). * RPT #: [id number] END OF REPORT FORMER[facility] 2022-01-09 12:53:00 [facility] ([facility]) General Surg. Consultation REPORT #: [id number] REPORT STATUS: Signed DATE: 01/09/22 TIME: 1253 PATIENT: MAURICIO BLISS UNIT #: [id number] ROOM #: NC.5201 BED: 1 : 80 AGE: 41 SEX: M ATTEND: Gopal Lopes MD ADM AUTHOR: Vishal De La Garza MD ATT ENTION *EDITS and/or ADDENDA must be made in Patient Keeper for this note. * * Edits and ammendments created in [employer] are not visible * * in Patient Keeper or the legal medical record ([facility]). * -- ASSESSMENT AND PLAN -- PROBLEMS: 1: Typhlitis A/P: - Per outside CT scan that was noncontrasted -Recommend repeat contrasted CT scan -Diet as [...] to his back. Pain improves with pain medication and worsens with movement. Patient has had prior cholecystectomy and appendectomy. He presented to an outside facility where he is CT scan showing colitis. Patient denies nausea or vomiting. 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 EYES: Negative for blurry vision. No diplopia. RESPIRATORY: Negative for dyspnea or wheeze. No cough. CARDIOVASCULAR: Negative for chest pain or palpitations. No extremity swelling. GASTROINTESTINAL: Refer to HPI GENITOURINARY: Negative for dysuria, frequency, or urgency. No gross hematuria. MUSCULOSKELETAL: Negative for joint stiffness, pain, or arthralgias. SKIN: Negative for rashes. No [...] and rest of the abdomen, not diffusely peritoneal MUSCULOSKELETAL: No deformity EXTREMITIES: No clubbing, no cyanosis, no edema. SKIN: Intact without significant lesions, or rashes. PSYCHIATRIC: Alert and oriented to time, person, [...] IV .Q10H PIPERAC/TAZOBACTAM with/in SODIUM CHLORIDE 100 mL BAG 3.375 GM IV Q8H hydrALAZINE HCL [...] MD on 01/09/22 at 15:31 at 1531 ATT ENTION *EDITS and/or ADDENDA must be made in Patient Keeper for this note. * * Edits and ammendments created in [facility] are not visible * * in Patient Keeper or the legal medical record (HPF). * [facility] #: [id number] END OF REPORT [facility] 2022-01-09 09:00:00 [facility] ([facility]) Hospitalist Tres Knutson REPORT #: [id number] REPORT STATUS: Signed DATE: 01/09/22 TIME: 0900 PATIENT: MAURICIO BLISS UNIT #: [id number] ROOM #: NC.5201 BED: 1 : 80 AGE: 41 SEX: M ATTEND: Gopal Lopes MD ADM AUTHOR: Deborah Retana ATT ENTION *EDITS and/or ADDENDA must be made in Patient Keeper for this note. * * Edits and ammendments created in [employer] are not visible * * in Patient Keeper or the legal medical record (HPF). * -- CO-SIGNATURE -- COMMENTS: Agree with [...] polyps presented as a direct transfer from [facility] ER with c/o diffuse abd pain (greatest in RUQ) x 4 days. Describes the pain as crampy, burning, and sharp with no aggravating factors and temporarily mildly alleviated by IV Morphine. Reports associated nausea, vomiting x 6 episodes (last emesis last night), and diarrhea (last episode yesterday AM). Denies fever, chills, CP, palpitations, SOB, hematochezia, melena, hematemesis, urinary symptoms, or any other complaints. At outside ER, CT Abd/Pelvis w/o contrast showed "Loops of bowel w/o wall thickening or obstruction. Thickening of wall of cecum w/ inflammatory and edematous changes adjacent to cecum. Small lymph nodes also identified. Findings c/w typhlitis. No free air, free fluid, or fluid collection." Labs essentially unremarkable. Admitted for further eval and mgmt with GI and General Surgery consultations placed by ER. PAST MEDICAL HISTORY: HTN GERD SVT COVID-19 Precancerous colon polyps PAST SURGICAL HISTORY: Cholecystectomy (19 yrs ago) Appendectomy (19 yrs ago) Colonoscopy with 18 precancerous polyps removed (last CSP was 2 yrs ago) Right hand repair FAMILY HISTORY: Father: Colon [place] with APC gene mutation Sister: APC gene mutation (pt has not been tested himself) -SOCIAL HISTORY- -TOBACCO USE- DETAILS/COMMENTS: Former [...] diplopia. EARS/NOSE/THROAT: Negative for sore throat. No otalgia. No rhinorrhea. BREAST: Negative for change in shape, swelling, masses, nipple discharge, pain, skin changes. RESPIRATORY: Negative for dyspnea or wheeze. No cough. CARDIOVASCULAR: Negative for chest pain or palpitations. No extremity swelling. GASTROINTESTINAL: Positive for abdominal pain and N/V/D. GENITOURINARY: Negative for dysuria, frequency, or urgency. No gross hematuria. MUSCULOSKELETAL: Negative for joint stiffness, pain, or arthralgias. SKIN: Negative for rashes. No [...] intact judgment and insight. -- DATA -- LABS LIP [...] - Unable to obtain an accurate home medication list at this time. The patient is in an urgent or emergent medical situation where time is of the essence. To delay treatment would jeopardize the patient's health status on the day of the encounter. -VTE PROPHYLAXIS -GENERAL- Yes TYPE OF VTE mechanical compression device -- ATTESTATION -- TIME SPENT ON PATIENT CARE: - Direct 60 minutes - > 50% of time spent on Counseling/Care Coordination CARE ACTIVITIES / CARE COORDINATION: - I have reviewed the history and repeated the moncada elements - I have seen and examined this patient - I have discussed the patient's condition with other members of the care team Signed in PatientKeeper by Deborah Retana on 01/09/22 at 18:06 Cosigned by JAMIN YBARRA MD on 01/11/22 at 15:22 ATT ENTION *EDITS and/or ADDENDA must be made in Patient Keeper for this note. * * Edits and ammendments created in [employer] are not visible * * in Patient Keeper or the legal medical record (HPF). * [facility] #: [id number] END OF REPORT [facility] 2022-01-09 06:27:00 [facility] ([facility]) EMERGENCY PROVIDER REPORT REPORT#:[id number] REPORT STATUS: Signed DATE:01/09/22 TIME: 626 PATIENT: MAURICIO BLISS UNIT #: [id number] [address] AGE: 41 SEX: M PCP PHYS: No Primary or Family Physician SERVICE AUTHOR: Rell Rousseau MD * ALL edits or amendments must be made on the electronic/computer document * HPI-General Illness General Initial Greet [...] for 3 days. He reports pain in the right side of his abdomen which has been getting worse. He also reports diarrhea, no blood in it. No fever or chills. He denies sick contacts. Denies any history of similar symptoms. He does report a history of colon polyps and says his last colonoscopy was a few years ago. He was seen at an outside ER where lab work was essentially normal, CT scan showed typhlitis, and he was transferred here for higher level of care/GI consultation. Review of Systems ROS Statements All systems rev neg except as marked. Past Medical History - Adult Stated Complaint COLITIS CONS ACCEPTED DR Edi DE LA GARZA Allergies Coded Allergies: ketorolac (From TORADOL) (UNKNOWN 01/09/22) Home Medications Reported Medications Amlodipine (Norvasc) 5 MG PO DAILY Omeprazole Er 40 MG PO BID Smoking status for patients 13 years old or older: Never Smoker Physical Exam Vital Signs Vital [...] Review of Vital Signs Reviewed, Vital signs normal Basic Physical Exam Basic PE GEN: Well appearing/NAD, HEAD: Atraumatic/NC, EYES: PERRL, conj clear, ENT: Membranes moist, NECK: Supple, RESP: No resp distress, CV: Reg rate rhythm, EXT: No gross abnormality, SKIN: No rashes, warm/dry, NEURO: alert oriented, NEURO: gross movement NL, PSYCH: NL thought content Physical Exam Abdomen/GI Abdomen/GI Atraumatic, Soft, No rebound, R sided abd ttp with guarding Interpretation Diagnostics Lab Results Interpretation Results Laboratory Tests: 01/09 647 Serology SARS-CoV-2 Ag (Rapid) (Negative) NEGATIVE Re-Evaluation MDM Free Text MDM Notes Free Text MDM Notes GI consultation accepted by . Admission accepted by the overnight [facility] SOFTWARE QUALITY MANAGER. ED Course Medication(s) Ordered Medication(s) Ordered: Central Nervous System Agents Sig/Scar Start time Last Medication Dose Route Stop Time Status Admin Morphine Sulfate 4 MG X1ED STA 01/09 0620 DC 01/09 IV 01/09 0621 0630 Gastrointestinal Drugs Sig/Scar Start time Last Medication Dose Route Stop Time Status Admin Ondansetron HCl 4 MG X1ED STA 01/09 0620 DC 01/09 IV 01/09 06 0629 Patient Discharge Departure Vital Signs/Condition Vital [...] Delivery Room air 01/09 0651 Pulse 76 / 0651 Resp 18 01/09 0651 Temp 37.2 01/09 0552 All vital signs available at the time of this entry have been reviewed. Clinical Impression Clinical Impression Primary Impression: Typhlitis Disposition Decision Admit Admit Physician Name Gopal Lopes MD )( Admission Accepts Yes )( Accepted Time 06 )( Accepted Date 01/09/22 at 1411 RPT #:[id number] END OF REPORT [facility]
[2024-08-25] MEDS ORDERED: LEVETIRACETAM 500 MG/5 ML VIAL IV ONE (23:16)
[2024-08-25] MEDS ORDERED: NA CHLORIDE 0.9% 100 ML ONE (23:16)
[2024-08-25 23:34] LABS: Absolute Basophils 0.1 K/uL (0-0.5); Absolute Lymphocytes (CBC) 3.8 K/uL (0.7-4.9); Absolute Monocytes 0.4 K/uL (0.1-1.3); Absolute Neutrophil 4.7 K/uL (1.8-8.0); Basophils % 0.9 % (0-1.3); Eosinophils % 0.5 % (0-4.4); Hemoglobin 15.5 g/dL (13.6-17.9); Lymphocytes % 42.3 % (15.3-44.8); MCH 30.7 pg (27.0-35.0); MCHC 34.4 g/dL (32.0-36.0); MCV 89.2 fL (80-100); MPV 8.1 fL (7.6-11.3); Monocytes % 4.3 % (3.3-12.3); Nucleated Red Blood Cells % 0.1 % (0-0); Platelets 233 thou/uL (152-406); RBC Red Blood Cell Count 5.05 M/uL (4.33-5.43); Red Cell Distribution Width 13.3 % (12.1-15.2)
[2024-08-25 23:45] LABS: Barbiturates NEGATIVE (NEGATIVE); Benzodiazepines NEGATIVE (NEGATIVE); Cocaine NEGATIVE (NEGATIVE); METHAMPHETAM NEGATIVE (NEGATIVE); Methadone NEGATIVE (NEGATIVE); Opiates NEGATIVE (NEGATIVE); Phencyclidine NEGATIVE (NEGATIVE); Specific Gravity < 1.005 (1.005-1.030); Sqamous Epithelial None Seen /HPF (None Seen); THC Cannibis NEGATIVE (NEGATIVE); Urine Bacteria None Seen /HPF (<20); Urine Bilirubin NEGATIVE (Negative); Urine Blood Negative (Negative); Urine Clarity Clear (Clear); Urine Color Colorless (Yellow); Urine Culture Reflex Order NOT NEEDED; Urine Glucose NEGATIVE (Negative); Urine Ketones NEGATIVE (Negative); Urine Micro Reflex YN NO BILL MICROSCOPIC; Urine Nitrite NEGATIVE (Negative); Urine Protein NEGATIVE (Negative); Urine RBC <5 /HPF (None Seen); Urine Urobilinogen Normal (Normal); Urine WBC None Seen /HPF (<5)
[2024-08-25] MEDS ORDERED: DIAZEPAM 10 MG/2 ML INJ SYRINGE ONE (23:48)
[2024-08-25 23:55] LABS: Anion Gap 9.5 mEq/L (5.0-15.0); Potassium 3.5 mEq/L (3.5-5.1); Troponin High Sensitivity 6.1 pg/mL (<58.9)
[2024-08-26] MEDS ORDERED: FAMOTIDINE 20 MG/2 ML VIAL IV ONE (01:37)
--- NOTE | 2024-08-26 01:50 | RAD REPORT ---
EXAM DESCRIPTION: CT HEAD WITHOUT IV CONTRAST CLINICAL HISTORY: Mental status change. COMPARISON: CT Head and cervical spine without IV contrast 05/25/2021 TECHNIQUE: Contiguous axial images of the brain were obtained without the administration of intravenous contrast . This exam was performed according to our departmental dose-optimization program, which includes automated exposure control, adjustment of the mA and/or kV according to patient size and/or use of it erative reconstruction technique. FINDINGS: There is no acute intracranial hemorrhage or mass effect. Ventricular system is within normal limits. There is adequate hernández-white matter differentiation. There is no skull fracture. The visualized paranasal sinuses and mastoid air cells are within normal limits. IMPRESSION: No acute intracranial abnormalities. Electronically signed by: Yoni Prasad MD 08/26/2024 12:31 AM CDT Due to temporary technical issues with the PACS/[employer] reporting system, reports are being caryn d by the in-house radiologist without review as a courtesy to ensure prompt reporting the interpreting radiologist is fully responsible for the content of the report. Transcribed Date/Time: 08/26/2024 1:49 AM
--- NOTE | 2024-08-26 03:02 | ER ---
Nurse's Notes [facility] Name: Sergo Bliss Sr Age: 44 yrs Sex: Male : 1980 Arrival Date: 08/25/2024 Time: 22:39 Bed 4 Private MD: Diagnosis: Alcohol Intoxication;Bozena Presentation: 08/25 22:58 Chief complaint: Patient's son or daughter states: he has been drinking heavily today bm8 and mixing drinks and like 5 mins ago he started convulsing. Coronavirus screen: At this time, the client does not indicate any symptoms associated with coronavirus-19. Ebola Screen: Patient negative for fever greater than or equal to 101.5 degrees Fahrenheit, and additional compatible Ebola Virus Disease symptoms Patient denies exposure to infectious person. Patient denies travel to an Ebola-affected area in the 21 days before illness onset. No symptoms or risks identified at this time. Initial Sepsis Screen: Does the patient meet any 2 criteria? No. Patient's initial sepsis screen is negative. Does the patient have a suspected source of infection? No. Patient's initial sepsis screen is negative. Risk Assessment: Do you want to hurt yourself or someone else? Patient reports no desire to harm self or others. Onset of symptoms was August 25, 2024 at 22:00. 22:58 Method Of Arrival: Wheelchair bm8 22:58 Acuity: LAMAR 2 bm8 Triage Assessment: 23:00 General: Appears in no apparent distress. comfortable, Behavior is drowsy. Pain: Denies bm8 pain. EENT: No deficits noted. No signs and/or symptoms were reported regarding the EENT system. Neuro: Level of Consciousness is confused, post ictal, Oriented to person. Cardiovascular: Reports chest pain, Heart tones S1 S2 present Capillary refill < 3 seconds in bilateral fingers Patient's skin is warm and dry. Respiratory: Airway is patent Respiratory effort is even, unlabored, Respiratory pattern is regular, symmetrical, Breath sounds are clear bilaterally. GI: No signs and/or symptoms were reported involving the gastrointestinal system. : No signs and/or symptoms were reported regarding the genitourinary system. Derm: No signs and/or symptoms reported regarding the dermatologic system. Musculoskeletal: No signs and/or symptoms reported regarding the musculoskeletal system. Historical: - Allergies: 23:00 Toradol; bm8 - Home Meds: 23:00 amlodipine 5 mg tab 1 tab once daily [Active]; lisinopril 5 mg Oral tab 1 tab once bm8 daily [Active]; omeprazole 40 mg Oral cpDR 1 cap 2 times per day [Active]; - PMHx: 23:00 Atrial fibrillation; GERD; Hypertension; bm8 - PSHx: 23:00 Cholecystectomy; right hand; bm8 - Immunization history:: Adult Immunizations up to date. - Infectious Disease History:: Denies. - Social history:: Smoking status: Patient reports the use of cigarette tobacco products, Patient uses alcohol, Patient/guardian denies using street drugs. Screenin:02 [facility] ED Fall Risk Assessment (Adult) History of falling in the last 3 months, bm8 including since admission No falls in past 3 months (0 pts) Confusion or Disorientation Yes (5 pts) Intoxicated or Sedated Yes (3 pts) Impaired Gait Yes (1 pt) Mobility Assist Device Used Yes (1 pt) Altered Elimination No (0 pt) Score/Fall Risk Level 3 or more points = High Risk Oriented to surroundings, Maintained a safe environment, Educated pt \T\ family on fall prevention, incl call for assistance when getting out of bed, Assessed \T\ reinforced patient's understanding of fall precautions, Hourly rounding (assess needs \T\ fall precautionary measures) done, Used ambulatory aids as needed (educated on \T\ assisted with), Used gait belt as appropriate. Abuse screen: Denies threats or abuse. Nutritional screening: No deficits noted. Tuberculosis screening: No symptoms or risk factors identified. Assessment: 23:02 Reassessment: see triage assessment. bm8 08/26 01:02 Reassessment: Patient appears in no apparent distress at this time. No changes from bm8 previously documented assessment. Patient and/or family updated on plan of care and expected duration. Pain level reassessed. pt is yelling that he wants to go home but continues coughing during speech. Neuro: Level of Consciousness is awake, confused, Oriented to person, place, situation, Appropriate for age. 02:22 Reassessment: Patient appears in no apparent distress at this time. Patient and/or bm8 family updated on plan of care and expected duration. Pain level reassessed. Patient is alert, oriented x 3, equal unlabored respirations, skin warm/dry/pink. Patient denies pain at this time. Vital Signs: 08/25 22:58 BP 147 / 98; Pulse 92; Resp 18; Temp 97.5; Pulse Ox 97% ; Weight 102 kg; Height 5 ft. bm8 10 in. ; Pain 0/10; 23:02 BP 128 / 94; Pulse 97; Resp 18; Temp 97.5; Pulse Ox 97% ; Pain 0/10; bm8 08/26 01:02 BP 137 / 94; Pulse 126; Resp 20; Temp 97.5; Pulse Ox 96% ; Pain 0/10; bm8 02:22 BP 124 / 84; Pulse 77; Resp 14; Temp 97.5; Pulse Ox 97% ; Pain 0/10; bm8 08/25 22:58 Body Mass Index 32.27 (102.00 kg, 177.8 cm) bm8 08/25 22:58 Pain Scale: Adult bm8 23:02 Pain Scale: Adult bm8 08/26 01:02 Pain Scale: Adult bm8 02:22 Pain Scale: Adult bm8 Steuben Coma Score: 08/25 23:00 Eye Response: to pain(2). Motor Response: localizes pain(5). Verbal Response: bm8 confused(4). Total: 11. 23:02 Eye Response: to voice(3). Motor Response: obeys commands(6). Verbal Response: bm8 confused(4). Total: 13. 08/26 01:02 Eye Response: to voice(3). Motor Response: obeys commands(6). Verbal Response: bm8 confused(4). Total: 13. 02:22 Eye Response: spontaneous(4). Motor Response: obeys commands(6). Verbal Response: bm8 oriented(5). Total: 15. ED Course: 08/25 22:41 Patient arrived in ED. jj6 22:44 Client placed on continuous cardiac and pulse oximetry monitoring. NIBP monitoring dd2 applied. 22:44 Inserted saline lock: 20 gauge in right antecubital area, using aseptic technique. dd2 Blood collected. Flushed with 10 mL NS. 22:58 Deion Chandra, RN is Primary Nurse. bm8 23:00 Triage completed. bm8 23:00 Arm band placed on left wrist. EKG completed in triage. Results shown to MD. bm8 23:02 Patient has correct armband on for positive identification. Bed in low position. Call bm8 light in reach. Side rails up X2. Adult w/ patient. Seizure precautions initiated. Client placed on continuous cardiac and pulse oximetry monitoring. NIBP monitoring applied. supervisor cured meats on. Pulse ox on. NIBP on. Door closed. Noise minimized. Warm blanket given. Pillow given. Verbal reassurance given. Head of bed elevated. 23:02 No provider procedures requiring assistance completed. Initial lab(s) drawn, by hi, bm8 sent to lab. Urine collected: clean catch specimen, clear, EKG done, by ED staff, reviewed by Ole Klein MD. Patient maintains SpO2 saturation greater than 95% on room air. 23:08 Ole Klein MD is Attending Physician. ec2 23:18 Urine W/Microscopic (UAM) Sent. dd2 23:18 Urine Drug Screen Sent. dd2 23:18 Basic Metabolic Panel Sent. dd2 23:18 CBC with Diff Sent. dd2 23:18 Troponin HS Sent. dd2 23:41 XRAY Chest (1 view) In Process Unspecified. EDMS 23:46 Head Brain Wo Cont In Process Unspecified. EDMS 08/26 03:05 Provided Education on: post er care. bm8 03:05 IV discontinued, intact, bleeding controlled, No redness/swelling at site. Pressure bm8 dressing applied. Administered Medications: 08/25 23:21 Drug: Keppra IV 1000 mg IV at calculated rate once Route: IV; Rate: calculated rate; bm8 Site: right antecubital; 08/26 01:04 Follow up: Response: No adverse reaction; IV Status: Completed infusion bm8 08/25 23:55 Drug: Diazepam IVP 10 mg IVP once Route: IVP; Site: right antecubital; bm8 08/26 01:04 Follow up: Response: No adverse reaction bm8 01:39 Drug: Famotidine IVP 20 mg IVP once; dilute with 10 mL 0.9% NaCl; give over 2 minutes bm8 Route: IVP; Site: right antecubital; 02:23 Follow up: Response: No adverse reaction bm8 Medication: 08/25 23:02 VIS not applicable for this client. bm8 Outcome: 08/26 03:01 Discharge ordered by . ec2 03:05 Discharged to home ambulatory, with family, bm8 03:05 Condition: stable 03:05 Discharge instructions given to patient, family, Instructed on discharge instructions, follow up and referral plans. no drinking with medication, no driving heavy equipment, medication usage, Demonstrated understanding of instructions, follow-up care, medications, 03:06 Patient left the ED. bm8 Signatures: Dispatcher [employer] EDGuerline Mello [id number] Ole Klein MD MD ec2 Deion Chandra RN RN bm8 AVIVA MARISCAL RN RN dd2
--- NOTE | 2024-08-26 03:02 | EDPHYS ---
Physician Documentation [facility] Name: Sergo Bliss Sr Age: 44 yrs Sex: Male : 1980 Arrival Date: 08/25/2024 Time: 22:39 Bed 4 Private MD: ED Physician Ole Klein HPI: 08/25 23:22 This 44 yrs old Male presents to ER via Wheelchair with complaints of Seizure.ec2 23:22 Patient arrives today for evaluation of "seizure ". Patient is having some jerking ec2 episodes and family were concerned about seizures. No history of seizures, had significant alcohol tonight. No falls injuries or trauma reported.. Historical: - Allergies: 23:00 Toradol; bm8 - Home Meds: 23:00 amlodipine 5 mg tab 1 tab once daily [Active]; lisinopril 5 mg Oral tab 1 tab once bm8 daily [Active]; omeprazole 40 mg Oral cpDR 1 cap 2 times per day [Active]; - PMHx: 23:00 Atrial fibrillation; GERD; Hypertension; bm8 - PSHx: 23:00 Cholecystectomy; right hand; bm8 - Immunization history:: Adult Immunizations up to date. - Infectious Disease History:: Denies. - Social history:: Smoking status: Patient reports the use of cigarette tobacco products, Patient uses alcohol, Patient/guardian denies using street drugs. ROS: 23:23 Constitutional: as per hpi ec2 Exam: 23:23 Constitutional: GEN: NAD Head: atraumatic Eyes: EOMI Ears: External ears are ec2 normal. CV: regular rate LUNGS: no respiratory distress ABD: non-distended SKIN: no evidence of rashes MSK: no evidence of trauma. Neuro: Cranial nerves II through XII intact, strength intact all 4 extremities, no focal neurodeficit appreciated. Vital Signs: 22:58 BP 147 / 98; Pulse 92; Resp 18; Temp 97.5; Pulse Ox 97% ; Weight 102 kg; Height 5 ft. bm8 10 in. ; Pain 0/10; 23:02 BP 128 / 94; Pulse 97; Resp 18; Temp 97.5; Pulse Ox 97% ; Pain 0/10; bm8 08/26 01:02 BP 137 / 94; Pulse 126; Resp 20; Temp 97.5; Pulse Ox 96% ; Pain 0/10; bm8 02:22 BP 124 / 84; Pulse 77; Resp 14; Temp 97.5; Pulse Ox 97% ; Pain 0/10; bm8 08/25 22:58 Body Mass Index 32.27 (102.00 kg, 177.8 cm) bm8 08/25 22:58 Pain Scale: Adult bm8 23:02 Pain Scale: Adult bm8 08/26 01:02 Pain Scale: Adult bm8 02:22 Pain Scale: Adult bm8 Anthony Coma Score: 08/25 23:00 Eye Response: to pain(2). Motor Response: localizes pain(5). Verbal Response: bm8 confused(4). Total: 11. 23:02 Eye Response: to voice(3). Motor Response: obeys commands(6). Verbal Response: bm8 confused(4). Total: 13. 08/26 01:02 Eye Response: to voice(3). Motor Response: obeys commands(6). Verbal Response: bm8 confused(4). Total: 13. 02:22 Eye Response: spontaneous(4). Motor Response: obeys commands(6). Verbal Response: bm8 oriented(5). Total: 15. MDM: 08/25 23:10 ED course: EKG independently reviewed and interpreted by me, shows sinus tachycardia, ec2 rate 113, no acute ST segment elevations, intervals are nonactionable.. 23:11 Medical Screening Exam initiated ec2 23:23 Data reviewed: vital signs, nurses notes. ED course: Patient arrives today for ec2 evaluation of jerks. Examination is unrevealing. Will obtain lab work, CT imaging. DDx include electrolyte disturbances, arrhythmia, doubt intracranial brain bleed, doubt seizure given appearance. During these episodes patient is having whole body jerks where he is lucid without any rhythmic pattern. 23:56 ED course: Metabolic profile reassuring. Urine is noninfectious, alcohol level elevated ec2 to 46. CBC reassuring, troponin within normal ranges, UDS is negative.. 08/26 00:53 ED course: On reassessment patient with no additional jerks. Patient resting ec2 comfortably, will have patient metabolize medications and substances and reassess.. 03:01 ED course: Patient ambulatory, will be d/c to home w/ family. return precautions given. ec2 03/15 23:06 Order name: Basic Metabolic Panel; Complete Time: 23:56 [facility] 08/25 23:06 Order name: CBC with Diff; Complete Time: 23:56 [facility] 08/25 23:06 Order name: Troponin HS; Complete Time: 23:56 [facility] 08/25 23:06 Order name: Urine Drug Screen; Complete Time: 23:56 [facility] 08/25 23:06 Order name: Urine W/Microscopic (UAM); Complete Time: 23:56 [facility] 08/25 23:12 Order name: ETOH Level; Complete Time: 23:56 dd2 08/25 23:06 Order name: XRAY Chest (1 view) [facility] 08/25 23:46 Order name: Head Brain Wo Cont EDMS 08/25 23:06 Order name: EKG; Complete Time: 23:07 [facility] 08/25 23:06 Order name: Cardiac monitoring; Complete Time: 23:06 [facility] 08/25 23:06 Order name: EKG - Nurse/Tech; Complete Time: 23:06 [facility] 08/25 23:06 Order name: IV Saline Lock; Complete Time: 23:06 [facility] 08/25 23:06 Order name: Labs collected and sent; Complete Time: 23:06 [facility] 08/25 23:06 Order name: O2 Per Protocol; Complete Time: 23:06 [facility] 08/25 23:06 Order name: O2 Sat Monitoring; Complete Time: 23:06 [facility] Administered Medications: 08/25 23:21 Drug: Keppra IV 1000 mg IV at calculated rate once Route: IV; Rate: calculated rate; 8 Site: right antecubital; 08/26 01:04 Follow up: Response: No adverse reaction; IV Status: Completed infusion 8 08/25 23:55 Drug: Diazepam IVP 10 mg IVP once Route: IVP; Site: right antecubital; 8 08/26 01:04 Follow up: Response: No adverse reaction 8 01:39 Drug: Famotidine IVP 20 mg IVP once; dilute with 10 mL 0.9% NaCl; give over 2 minutes bm8 Route: IVP; Site: right antecubital; 02:23 Follow up: Response: No adverse reaction 8 Disposition Summary: 08/26/24 03:01 Discharge Ordered Notes: Location: Home ec2 Condition: Stable ec2 Diagnosis - Alcohol Intoxication ec2 - Jerks ec2 Followup: ec2 - With: Private Physician - When: - Reason: Re-evaluation by your physician Discharge Instructions: - Discharge Summary Sheet ec2 - Muscle Cramps and Spasms, [id number] ec2 Forms: - Medication Reconciliation Form ec2 - Antibiotic Education ec2 - Prescription Opioid Use ec2 - Patient Portal Instructions ec2 - Leadership Thank You Letter ec2 Signatures: Dispatcher [employer] EDMS Ole Klein MD MD ec2 Deion Chandra, RN RN bm8 Corrections: (The following items were deleted from the chart) 08/25 23:07 23:07 BASIC METABOLIC PANEL+C.LAB.BRZ ordered. EDMS EDMS 23:07 23:07 CBC+H.LAB.BRZ ordered. EDMS EDMS 23:07 23:07 Troponin High Sensitivity+C.LAB.BRZ ordered. EDMS EDMS 23:07 23:07 URINE DRUG SCREEN+UC.LAB.BRZ ordered. EDMS EDMS 23:07 23:07 Urinalysis W/Microscopic+U.LAB.BRZ ordered. EDMS EDMS 23:12 23:12 ETHANOL+C.LAB.BRZ ordered. EDMS EDMS 23:46 23:06 Head Brain W/ Wo Con+CT.RAD.BRZ ordered. EDMS EDMS 23:46 23:29 Head Brain Wo Cont+CT.RAD.BRZ ordered. EDMS EDMS
[2024-08-26 03:13] VITALS: TEMP 97.5
[2024-08-26 03:18] VITALS: BP 124/84; O2SAT 97
--- NOTE | 2024-08-26 06:43 | RAD REPORT ---
TIME OF STUDY: 08/25/2024 11:06 PM CDT REASON FOR EXAM: CHEST PAIN COMPARISON: January 08, 2023 FINDINGS: AP view of the chest was obtained, chest 1 view. Lungs: Normal lung volume. No mass, or consolidation. Normal pulmonary vascularity.. Pleura: No pneumothorax. There is no pleural effusion. Heart and Mediastinum: Cardiac silhouette is enlarged and stable. Bones: No acute bony abnormality.. IMPRESSION: 1. No acute cardiopulmonary process. Electronically signed by: Dante Julien MD 08/26/2024 12:24 AM CDT RP Due to temporary technical issues with the PACS/[employer] reporting system, reports are being caryn d by the in-house radiologist without review as a courtesy to ensure prompt reporting. The interpreting radiologist is fully responsible for the content of the report. Transcribed Date/Time: 08/26/2024 6:43 AM
== END 2024-08-26 03:06 | disposition home or self-care (01) ==
LOC: ER 22:39
DX: R25.8 Other abnormal involuntary movements (principal); F10.129 Alcohol abuse with intoxication, unspecified
CPT/HCPCS: 36415; 70450; 71045; 80048; 80307; 81001; 82077; 84484; 85025; 93005; 96365; 96366; 96375; 99285; J1953; J3360

== ENCOUNTER 2024-10-31 19:49 | Emergency (ER) | payer SELFPAY ==
--- OUTSIDE RECORDS SUMMARY | 2024-10-31 19:53 | XMS REPORT | Continuity of Care Document ---
Author Name Unknown Address [address] [facility]. [address] [place] [address] [facility] Address [address] [facility]. [address] [place] [address] Care Team Providers Care Seismograph Observer Name Role Phone PCP, PATIENT DOES NOT HAVE A Primary Care Physic karolyn Unavailable Gopal Lopes Attending Clinician Unavailable CARRIE RIVAS Attending Clinician Unavailable RAYA CONNORS Attending Clinician Unavailable RAYA CONNORS Attending Clinician Unavailable LEXY GALLOWAY Attending Clinician Unavailable Lexy Galloway NP Attending Clinician [phone] DYAN LOPEZ Attending Clinician Unavailab Dyan Wolf DO Attending Clinician [phone] ALEXA SEGAL Attending Clinician Unavailab Héctor Mejia Attending Clinician [phone] Alexa Segal MD Attending Clinician [phone] FELIX MEYERS Attending Clinician Unavailable Jude Yung Attending Clinician [phone] Felix Meyers MD Attending Clinician + NANCY GOODSON Attending Clinician Unavailable Nancy Goodson NP Attending Clinician + OSEAS MICHELLE Attending Clinician Unavailable Oseas Michelle MD Attending Clinician + Doctor Unassigned, [place] Attending Clinician U guanaco Chadnra MD, Rosas [place] Attending Clinician [phone] Silvino Zuluaga Attending Clinician + SILVINO GALVAN Attending Clinician Unavailable Chelo Schmitz Attending Clinician +[phone] Segundo Shaffer Attending Clinician +[phone] SEGUNDO MARIN Attending Clinician Unavailable Gopal Lopes Admitting Clinician Unavailable RAYA CONNORS Admitting Clinician Unavailable DYAN LOPEZ Admitting Clinician Unavailab HÉCTOR Sarkar Admitting Clinician Unavailable JUDE HANKINS Admitting Clinician Unavailable ALEXA SEGAL Admitting Clinician Unavailab NANCY Krishnan Admitting Clinician Unavailable OSEAS MICHELLE Admitting Clinician Unavailable SEGUNDO MARIN Admitting Clinician Unavailable Payers Payer Name Policy Type Policy Number Effective Date Expirati on Date Source [facility] [id number] 2019 00:00:00 Problems Condition Name Condition Details Condition Category Status Onset Date Resolution Date Last Treatment Date Treating Clinician Comments Source 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 Disease Active 06-19 00:00: 00 [facility] HTN (hypertens ion) HTN (hypertens ion) Disease Active 01-31 00:00: 00 [facility] Chest pain at rest Chest pain at rest Disease Active 01-31 00:00: 00 [facility] No known active problems No known active problems Disease [facility] Allergies, Adverse Reactions, Alerts Allergy Name Allergy Type Status Severity Reaction(s) Onset Date Inactive Date Treating Clinician Comments Source ketorola c DA Active U UNKNOWN 01-09 00:00: 00 [facility] [place] Ketorola c Trometha mine Propensi ty to adverse reaction s Active Anxiety 12-10 00:00: 00 [facility] KETOROLA C TROMETHA MINE DRUG INGREDI Active Anxiety 12-10 00:00: 00 [facility] Social History Social Habit Start Date Stop Date Quantity Comments Source History of tobacco use Chews Tobacco [facility] History SDOH Alcohol Frequency [facility] History SDOH Alcohol Std Drinks [facility] History SDOH Alcohol Binge [facility] History of Social function 2023-10-24 00:00:00 2023-10-24 00:00:00 [facility] Alcoholic beverage intake 2023-10-24 00:00:00 2023-10-24 00:00:00 Current drinker of alcohol (finding) [facility] Alcohol intake 2023-05-25 00:00:00 2023-05-25 00:00:00 Current drinker of alcohol (finding) [facility] Exposure to SARS-CoV-2 (event) 2022-10-04 00:00:00 2022-10-14 20:10:00 Not sure [facility] Tobacco use and exposure 2021-01-09 00:00:00 2021-01-09 00:00:00 User of smokeless tobacco [facility] Alcohol Comment 2021-01-09 00:00:00 2021-01-09 00:00:00 Occasionally [facility] Sex Assigned At 1980 00:00:00 1980 00:00:00 [facility] Smoking Status Start Date Stop Date Source Tobacco smoking consumption unknown [facility] Smokes tobacco daily 2021-01-09 00:00:00 [facility] Medications Ordered Medication Name Filled Medication Name Start Date Stop Date Current Medication? Ordering Clinician Indication Dosage Frequency Signature (SIG) Comments Components Source clindamycin (CLEOCIN HCL) capsule 300 mg 10-30 03:45: 00 10-30 04:10 :00 No 300mg 300 mg, Oral, Once, 1 dose, On Tue10/29/24 at 2245, ISMAEL, Reason for Anti-Infec tive: Documented Infection, Documented Infection Site: Skin / Soft Tissue, Duration of therapy: Once (ED), Restricted use approved by: ED PROVIDER [facility] mupirocin 2 % ointment 10-29 00:00: 00 Yes [id number] Apply to area(s) 3 (three) times daily. [facility] clindamycin 300 mg capsule 10-29 00:00: 00 11-09 04:59 :00 Yes [id number] 300mg Take 1 capsule by mouth 4 (four) times daily for 10 days. [facility] dexamethaso ne sod phos PF injection 10 mg 06-19 19:15: 00 06-19 19:18 :00 No 10mg 10 mg, Intramuscu lar, ONCE, 1 dose, On Tue06/19/24 at 1315, 1 mL [facility] HYDROcodone -acetaminop hen (NORCO 5) tablet 1 tablet 06-19 18:45: 00 06-19 18:53 :00 No 1{tbl} 1 tablet, Oral, ONCE, 1 dose, On Tue06/19/24 at 1245, ISMAEL [facility] sodium chloride (NS) injection 5 mL 06-19 17:45: 52 Yes 5mL 5 mL, Intravenou s, PRN, Starting on Tue06/19/24 at 1145, Until Discontinu ed, Routine, IV line flushing [facility] cyclobenzap rine 5 mg tablet 06-19 00:00: 00 Yes [id number] 5mg Take 1 tablet by mouth 3 (three) times daily as needed for Muscle Spasms. [facility] methylPREDN ISolone 4 mg tablets 06-19 00:00: 00 Yes [id number] Take by mouth SEE-INSTRU CTIONS. follow package directions [facility] methylPREDN ISolone 4 mg tablets 2023-06 0 00:00: 00 06-19 00:00 :00 No [id number] Take by mouth SEE-INSTRU CTIONS. follow package directions [facility] traMADoL 50 mg tablet 2023-06 0-24 00:00: 00 06-19 00:00 :00 No [id number] 50mg Take 1 tablet by mouth every 6 (six) hours as needed for Pain (scale 4-6). Indication s: acute pain [facility] NaCl 0.9% (NS) bolus infusion 1,000 mL 10-23 09:15: 00 10-23 09:05 :00 No 1000mL at 999 mL/hr, 1,000 mL, IV Infusion, ONCE, 1 dose, On Tue10/24/23 at 0415, ISMAEL [facility] dexAMETHaso ne (DECADRON) tablet 8 mg 2022-06 03:45: 00 05-26 02:54 :00 No 8mg 8 mg, Oral, ONCE, 1 dose, On Tue05/25/23 at 2145, Routine [facility] methocarbam oL 500 mg tablet 2022-06 00:00: 00 Yes [id number] 500mg Take 1 tablet by mouth 4 (four) times daily as needed for Pain (scale 7-10). [facility] NaCl 0.9% (NS) bolus infusion 1,000 mL 2022-06 08:15: 00 04-23 09:58 :00 No 1000mL at 999 mL/hr, 1,000 mL, IV Infusion, ONCE, 1 dose, On Tue04/23/23 at 0215, STAT [facility] maalox:diph enhydrAMINE :lidocaine 2 % viscous 1:1:1 ([facility]) oral suspension 15 mL 01-31 08:45: 00 01-31 08:34 :00 No 15mL 15 mL, Oral, ONCE, 1 dose, On Tue01/31/23 at 0345, Routine [facility] famotidine (PEPCID (PF)) injection 20 mg 01-31 08:30: 00 01-31 08:34 :00 No 20mg 20 mg, Slow IV Push, ONCE, 1 dose, On Tue01/31/23 at 0330, ISMAEL [facility] iopamidol (ISOVUE 370-500 mL) injection 100 mL 01-31 08:30: 00 01-31 07:44 :00 No [id number] 100mL 100 mL, Intravenou s, ONCE, 1 dose, On Tue01/31/23 at 0330, Routine [facility] NaCl 0.9% (NS) bolus infusion 1,000 mL 01-31 07:30: 00 01-31 10:58 :00 No 1000mL at 999 mL/hr, 1,000 mL, IV Infusion, ONCE, 1 dose, On Tue01/31/23 at 0230, ISMAEL [facility] morpHINE (4 mg/mL) injection 4 mg 01-31 07:15: 00 01-31 07:03 :00 No 4mg 4 mg, Slow IV Push, ONCE, 1 dose, On Tue01/31/23 at 0215, STAT [facility] haloperidol lactate (HALDOL) injection 5 mg 01-31 07:15: 00 01-31 07:03 :00 No 5mg 5 mg, Intravenou s, ONCE, 1 dose, On Tue01/31/23 at 0215, STAT [facility] nitroglycer in (NITROSTAT) sublingual tablet 0.4 mg 01-31 06:47: 30 Yes .4mg 0.4 mg, Sublingual , Q5MIN PRN, 3 doses, Starting on Tue01/31/23 at 0147, Until Discontinu ed, ISMAEL, Chest pain [facility] ondansetron (ZOFRAN (PF)) injection 4 mg 01-31 06:45: 00 01-31 06:47 :00 No 4mg 4 mg, Slow IV Push, ONCE, 1 dose, On Tue01/31/23 at 0145, ISMAEL [facility] ondansetron (ZOFRAN (PF)) injection 4 mg 01-31 06:15: 00 01-31 06:06 :00 No 4mg 4 mg, Slow IV Push, ONCE, 1 dose, On Tue01/31/23 at 0115, ISMAEL [facility] morpHINE (4 mg/mL) injection 4 mg 01-31 06:15: 00 01-31 06:05 :00 No 4mg 4 mg, Slow IV Push, ONCE, 1 dose, On Tue01/31/23 at 0115, STAT [facility] aspirin tablet 325 mg 01-31 06:13: 00 01-31 06:18 :00 No 325mg 325 mg, Oral, ONCE, 1 dose, On Tue01/31/23 at 0115, ISMAEL [facility] dexamethaso ne (DECADRON PHOSPHATE) injection 10 mg 10-15 02:45: 00 10-15 03:25 :00 No 10mg 10 mg, Intramuscu lar, ONCE, 1 dose, On Daisha 10/14/22 at 2145, Routine [facility] HYDROcodone -acetaminop hen (NORCO) 10-325 mg tablet 1 tablet 10-15 02:30: 00 10-15 03:19 :00 No 1{tbl} 1 tablet, Oral, ONCE, 1 dose, On Daisha 10/14/22 at 2130, Routine [facility] naproxen (NAPROSYN) tablet 500 mg 10-15 02:30: 00 10-15 03:20 :00 No 500mg 500 mg, Oral, ONCE, 1 dose, On Daisha 10/14/22 at 2130, Routine [facility] lisinopril 2.5 mg tablet 10-14 21:57: 27 10-14 00:00 :00 No 5mg Take 5 mg by mouth daily. [facility] aspirin chewable tablet 324 mg 2021-06 14:00: 00 Yes 324mg 324 mg, Oral, DAILY, First dose on 03/27/22 at 0900, Until Discontinu ed, Routine [facility] FENTanyl PF (SUBLIMAZE (PF)) injection 50 mcg 2021-06 09:30: 00 03-27 08:39 :00 No 50ug 50 mcg, Slow IV Push, ONCE, 1 dose, On 03/27/22 at 0430, Routine [facility] ondansetron (ZOFRAN (PF)) injection 4 mg 2021-06 08:30: 00 03-27 08:37 :00 No 4mg 4 mg, Slow IV Push, ONCE, 1 dose, On 03/27/22 at 0330, ISMAEL [facility] traMADoL (ULTRAM) 50 mg tablet 03-08 00:00: 00 10-14 00:00 :00 No [id number] 50mg Take 1 tablet by mouth every 6 (six) hours as needed for Pain (scale 7-10). Indication s: acute pain [facility] lisinopril 2.5 mg tablet 01-09 10:23: 21 Yes 5mg Take 5 mg by mouth daily. [facility] methylPREDN ISolone (MEDROL, ELLA,) 4 mg tablets 01-09 00:00: 00 10-14 00:00 :00 No [id number] 84mg Take 21 tablets by mouth SEE-INSTRU CTIONS. follow package directions [facility] omeprazole 40 mg capsule 12-27 00:00: 00 10-14 00:00 :00 No 40mg Take 40 mg by mouth daily. [facility] amLODIPine 5 mg tablet 12-27 00:00: 00 10-14 00:00 :00 No 1{tbl} Take 1 tablet by mouth daily. [facility] ondansetron (ZOFRAN ODT) 4 mg disintegrat ing tablet 8 00:00: 00 10-14 00:00 :00 No [id number] 4mg Take 1 tablet by mouth every 8 (eight) hours as needed for Nausea and Vomiting (N/V). [facility] acetaminoph en-codeine (TYLENOL-CO DEINE #3) 300-30 mg tablet 2020-0 6-09 00:00: 00 10-14 00:00 :00 No [id number] 1{tbl} Take 1 tablet by mouth every 6 (six) hours as needed for Pain (scale 7-10). [facility] ibuprofen 800 mg tablet 11-19 00:00: 00 10-14 00:00 :00 No [id number] 800mg Take 1 tablet by mouth every 8 (eight) hours as needed for Pain (scale 4-6). [facility] traMADOL 50 mg tablet 12-04 00:00: 00 10-14 00:00 :00 No 50mg Take 1 tablet by mouth every 6 (six) hours as needed (pain). [facility] Immunizations Ordered Immunization Name Filled Immunization Name Date Status Comments Source TDAP (ADACEL) VACCINE 2019-11-20 00:00:00 Completed [facility] TDAP (ADACEL) VACCINE 2019-11-20 00:00:00 Completed [facility] TDAP (ADACEL) VACCINE 2019-11-20 00:00:00 Completed [facility] TDAP (ADACEL) VACCINE 2019-11-20 00:00:00 Completed [facility] TDAP (ADACEL) VACCINE 2019-11-20 00:00:00 Completed [facility] TDAP (ADACEL) VACCINE 2019-11-20 00:00:00 Completed [facility] TDAP (ADACEL) VACCINE Unknown Completed [facility] TDAP (ADACEL) VACCINE Unknown Completed [facility] TDAP (ADACEL) VACCINE Unknown Completed [facility] TDAP (ADACEL) VACCINE Unknown Completed [facility] Vital Signs Vital Name Observation Time Observation Value Comments S kimi Systolic blood pressure 2024-10-30 04:17:00 159 mm[Hg] [facility] Diastolic blood pressure 2024-10-30 04:17:00 100 mm[Hg] [facility] Heart rate 2024-10-30 04:17:00 83 /min [facility] Body temperature 2024-10-30 04:17:00 36.89 Digna [facility] Respiratory rate 2024-10-30 04:17:00 18 /min [facility] Oxygen saturation in Arterial blood by Pulse oximetry 2024-10-30 04:17:00 96 /min [facility] Body height 2024-10-30 02:34:00 177.8 cm [facility] Body weight 2024-10-30 02:34:00 99.791 kg [facility] BMI 2024-10-30 02:34:00 31.57 kg/m2 [facility] Systolic blood pressure 2024-06-19 19:00:00 133 mm[Hg] [facility] Diastolic blood pressure 2024-06-19 19:00:00 90 mm[Hg] [facility] Heart rate 2024-06-19 19:00:00 76 /min [facility] Body temperature 2024-06-19 19:00:00 37 Digna [facility] Respiratory rate 2024-06-19 19:00:00 20 /min [facility] Oxygen saturation in Arterial blood by Pulse oximetry 2024-06-19 19:00:00 98 /min [facility] Body height 2024-06-19 16:52:00 177.8 cm [facility] Body weight 2024-06-19 16:52:00 93.895 kg [facility] BMI 2024-06-19 16:52:00 29.70 kg/m2 [facility] Systolic blood pressure 2023-10-24 10:08:00 125 mm[Hg] [facility] Diastolic blood pressure 2023-10-24 10:08:00 97 mm[Hg] [facility] Heart rate 2023-10-24 10:08:00 104 /min [facility] Body temperature 2023-10-24 10:08:00 36.89 Digna [facility] Respiratory rate 2023-10-24 10:08:00 21 /min [facility] Oxygen saturation in Arterial blood by Pulse oximetry 2023-10-24 10:08:00 95 /min [facility] Body height 2023-10-24 08:24:00 182.9 cm [facility] Body weight 2023-10-24 08:24:00 92.987 kg [facility] BMI 2023-10-24 08:24:00 27.80 kg/m2 [facility] Systolic blood pressure 2023-05-26 04:06:00 152 mm[Hg] [facility] Diastolic blood pressure 2023-05-26 04:06:00 91 mm[Hg] [facility] Heart rate 2023-05-26 04:06:00 75 /min [facility] Body temperature 2023-05-26 04:06:00 37 Digna [facility] Respiratory rate 2023-05-26 04:06:00 18 /min [facility] Oxygen saturation in Arterial blood by Pulse oximetry 2023-05-26 04:06:00 96 /min [facility] Body height 2023-05-26 00:54:00 177.8 cm [facility] Body weight 2023-05-26 00:54:00 93.895 kg [facility] BMI 2023-05-26 00:54:00 29.70 kg/m2 [facility] Systolic blood pressure 2023-04-23 11:00:00 119 mm[Hg] [facility] Diastolic blood pressure 2023-04-23 11:00:00 75 mm[Hg] [facility] Heart rate 2023-04-23 11:00:00 75 /min [facility] Res[facility] rate 2023-04-23 11:00:00 16 /min [facility] Oxygen saturation in Arterial blood by Pulse oximetry 2023-04-23 11:00:00 95 /min [facility] Body temperature 2023-04-23 07:03:00 36.61 Digna [facility] Body height 2023-04-23 07:03:00 177.8 cm [facility] Body weight 2023-04-23 07:03:00 93.895 kg [facility] BMI 2023-04-23 07:03:00 29.70 kg/m2 [facility] Systolic blood pressure 2023-01-31 10:00:00 118 mm[Hg] [facility] Diastolic blood pressure 2023-01-31 10:00:00 72 mm[Hg] [facility] Heart rate 2023-01-31 10:00:00 78 /min [facility] Respiratory rate 2023-01-31 10:00:00 18 /min [facility] Oxygen saturation in Arterial blood by Pulse oximetry 2023-01-31 10:00:00 97 /min [facility] Body temperature 2023-01-31 05:58:00 36.83 Digna [facility] Body height 2023-01-31 05:58:00 177.8 cm [facility] Body weight 2023-01-31 05:58:00 92.987 kg [facility] BMI 2023-01-31 05:58:00 29.41 kg/m2 [facility] Systolic blood pressure 2022-10-15 03:49:57 144 mm[Hg] [facility] Diastolic blood pressure 2022-10-15 03:49:57 78 mm[Hg] [facility] Heart rate 2022-10-15 01:05:00 71 /min [facility] Body temperature 2022-10-15 01:05:00 37.28 Digna [facility] Respiratory rate 2022-10-15 01:05:00 15 /min [facility] Body height 2022-10-15 01:05:00 177.8 cm [facility] Body weight 2022-10-15 01:05:00 93.895 kg [facility] BMI 2022-10-15 01:05:00 29.70 kg/m2 [facility] Oxygen saturation in Arterial blood by Pulse oximetry 2022-10-15 01:05:00 95 /min [facility] Heart rate 2022-03-27 11:30:00 69 /min [facility] Respiratory rate 2022-03-27 11:30:00 13 /min [facility] Oxygen saturation in Arterial blood by Pulse oximetry 2022-03-27 11:30:00 94 /min [facility] Systolic blood pressure 2022-03-27 11:00:00 95 mm[Hg] [facility] Diastolic blood pressure 2022-03-27 11:00:00 57 mm[Hg] [facility] Body temperature 2022-03-27 08:17:00 35.83 Digna [facility] Body height 2022-03-27 08:17:00 177.8 cm [facility] Body weight 2022-03-27 08:17:00 93.895 kg [facility] BMI 2022-03-27 08:17:00 29.70 kg/m2 [facility] Systolic blood pressure 2021-01-09 15:20:00 113 mm[Hg] [facility] Diastolic blood pressure 2021-01-09 15:20:00 73 mm[Hg] [facility] Heart rate 2021-01-09 15:20:00 78 /min [facility] Procedures Procedure Date / Time Performed Performing Clinician Source LIPASE 2024-06-19 17:56:00 Lexy Galloway [facility] COMP. METABOLIC PANEL ([id number]) 2024-06-19 17:56:00 Lexy Galloway [facility] CBC WITH DIFF 2024-06-19 17:56:00 Max Lexy [facility] URINALYSIS 2024-06-19 17:56:00 Max [facility] EKG-12 LEAD 2023-10-24 10:10:18 [facility]23-10-24 09:08:00 [facility] URINE [facility] (IMMUNOASSAY) - COMPREHENSIVE DRUG SCREEN W/O REFLEX 2023-10-24 09:08:00 Dyan Lopez [facility] LACTIC ACID WHOLE BLOOD 2023-10-24 08:32:00 Dyan Lopez [facility] MAGNESIUM 2023-10-24 08:29:00 [facility] TROPONIN I 2023-10-24 08:29:00 Dyan Lopez Un [facility] COMP. METABOLIC PANEL ([id number]) 2023-10-24 08:29:00 Dyan Lopez [facility] ETHANOL 2023-10-24 08:29:00 Dyan Lopez Un [facility] CBC WITH DIFF 2023-10-24 08:29:00 [facility] 2023-05-26 02:13:00 Héctor Cooper [facility] ASSIGNMENT OF BENEFITS 2023-05-26 01:51:24 Docto r Unassigned, [place] [facility] CT LUMBAR SPINE WO CONTRAST 2023-05-26 01:33:00 Héctor Cooper [facility] CONSENT/REFUSAL FOR DIAGNOSIS AND TREATMENT 2023-05-26 00:21:36 Doctor Unassigned, [place] [facility] TROPONIN I 2023-04-23 10:37:00 Felix Meyers [facility] EKG-12 LEAD 2023-04-23 08:10:15 Jude Hankins [facility] XR CHEST 1 VW 2023-04-23 07:35:43 [facility] TROPONIN I 2023-04-23 07:16:00 Nhi [facility] BASIC METABOLIC PANEL (NA, K, CL, CO2, GLUCOSE, BUN, CREATININE, CA) 2023-04-23 07:16:00 Jude Hankins [facility] ETHANOL 2023-04-23 07:16:00 Felix Meyers [facility] CBC WITH DIFF 2023-04-23 07:16:00 Jude aHnkins [facility] D-DIMER 2023-04-23 07:16:00 Nhi [facility] N-TERMINAL PRO-BNP 2023-04-23 07:16:00 Jude Hankins [facility] TROPONIN I 2023-01-31 09:19:00 Alexa Segal Un [facility] CT CHEST PULMONARY ANGIOGRAM 2023-01-31 07:40:00 Alexa Segal [facility] URINALYSIS 2023-01-31 06:32:00 Alexa Segal Un [facility] URINE DRUG (IMMUNOASSAY) - COMPREHENSIVE DRUG SCREEN W/O REFLEX 2023-01-31 06:32:00 Alexa Segal [facility] CREATINE KINASE 2023-01-31 06:07:00 Alexa Segal [facility] LIPASE 2023-01-31 06:07:00 Alexa Segal Un [facility] MAGNESIUM 2023-01-31 06:07:00 Alexa Segal [facility] TROPONIN I 2023-01-31 06:07:00 Alexa Segal [facility] COMP. METABOLIC PANEL ([id number]) 2023-01-31 06:07:00 Alexa Segal [facility] ETHANOL 2023-01-31 06:07:00 Alexa Segal Un [facility] CBC WITH DIFF 2023-01-31 06:07:00 [facility] N-TERMINAL PRO-BNP 2023-01-31 06:07:00 Aditi Segal [facility] NOTICE OF PRIVACY PRACTICES 2023-01-31 05:49:42 Doctor Unassigned, [place] [facility] CONSENT/REFUSAL FOR DIAGNOSIS AND TREATMENT 2023-01-31 05:48:10 Doctor Unassigned, [place] [facility] XR HEEL 2+ VW RIGHT 2022-10-15 02:05:44 Nancy Goodson [facility] CONSENT/REFUSAL FOR DIAGNOSIS AND TREATMENT 2022-10-15 01:05:31 Doctor Unassigned, [place] [facility] EKG-12 LEAD 2022-03-27 11:35:36 Oseas Michelle [facility] LIPASE 2022-03-27 09:57:00 Oseas Michelle [facility] TROPONIN I 2022-03-27 09:57:00 Oseas Michelle [facility] XR CHEST 1 VW 2022-03-27 08:58:00 [facility] TROPONIN I 2022-03-27 08:25:00 Oseas Michelle [facility] COMP. METABOLIC PANEL ([id number]) 2022-03-27 08:25:00 Oseas Michelle [facility] CBC WITH DIFF 2022-03-27 08:25:00 Oseas [facility] URINALYSIS 2022-03-27 08:25:00 Oseas Michelle [facility] CONSENT/REFUSAL FOR DIAGNOSIS AND TREATMENT 2022-03-27 07:58:19 Doctor Unassigned, [place] [facility] Encounters Start Date/Time End Date/Time Encounter Type Admission Type Attending [facility] Care Facility Care Department Encounter ID Source 2022-10-18 15:54:41 Outpatient [facility] [id number] [facility] [address] [facility] 2022-01-09 05:53:00 Inpatient EM Gpoal Lopes [facility] [id number] [facility] [place] 2021-07-06 13:49:19 Outpatient GREENLiamYOLANDA CARRIE [facility] [id number] [facility] 2021-04-14 01:24:14 Emergency [facility] [id number] [facility] 2024-10-29 21:35:00 2024-10-29 23:21:00 Emergency X RAYA CONNORS DONNELL [facility] ERT [id number] [facility] 2024-06-19 10:53:00 2024-06-19 13:50:00 Emergency X LEXY GALLOWAY [facility] ERT [id number] [facility] [facility] 2024-06-19 10:53:00 2024-06-19 13:50:00 Emergency Lexy Galloway [facility] 1.2.840.114 350.1.13.10 4.2.7.2.686 [id number] [facility] 2024-04-05 21:29:00 2024-04-05 22:45:00 Emergency X ALOK CONNORSRAYA POLK [facility] ERT [id number] [facility] 2023-10-24 03:26:00 2023-10-24 05:35:00 Emergency X DYAN LOPEZ [facility] ERT [id number] [facility] 2023-10-24 03:26:00 2023-10-24 05:35:00 Emergency Dayn Lopez [facility] 1.2.840.114 350.1.13.10 4.2.7.2.686 [id number] [facility] 2023-05-25 18:56:00 2023-05-25 22:12:00 Emergency X ALEXA SEGAL [facility] ERT [id number] [facility] 2023-05-25 18:56:00 2023-05-25 22:12:00 Emergency Héctor Cooper Lynda [facility] 1.2.840.114 350.1.13.10 4.2.7.2.686 [id number] [facility] 2023-04-23 01:11:00 2023-04-23 06:01:00 Emergency X FELIX MEYERS [facility] ERT [id number] [facility] 2023-04-23 01:11:00 2023-04-23 06:01:00 Emergency Nhi Jude PateFelix akers [facility] 1.2.840.114 350.1.13.10 4.2.7.2.686 [id number] [facility] 2023-01-31 00:55:00 2023-01-31 06:22:00 Emergency ALEXA KENYON [facility] ERT [id number] [facility] 2023-01-31 00:55:00 2023-01-31 06:22:00 Emergency Alexa Segal [facility] 1.2.840.114 350.1.13.10 4.2.7.2.686 [id number] [facility] 2022-10-14 20:15:00 2022-10-14 22:51:00 Emergency X NANCY GOODSON [facility] ERT [id number] [facility] 2022-10-14 20:15:00 2022-10-14 22:51:00 Emergency Nancy Goodson G [facility] 1.2.840.114 350.1.13.10 4.2.7.2.686 [id number] [facility] 2022-03-27 03:04:00 2022-03-27 06:50:00 Emergency X OSEAS MICHELLE [facility] ERT [id number] [facility] 2022-03-27 03:04:00 2022-03-27 06:50:00 Emergency Oseas Michelle [facility] 1.2.840.114 350.1.13.10 4.2.7.2.686 [id number] [facility] 2022-03-27 00:00:00 2022-03-27 00:00:00 Orders Only Doctor Unassigned, [place] [facility] 1.2.840.114 350.1.13.10 4.2.7.2.686 [id number] [facility] 2022-03-27 00:00:00 2022-03-27 00:00:00 Patient Secure Msg Doctor Unassigned, [place] [facility] 1.2.840.114 350.1.13.10 4.2.7.2.686 [id number] [facility] 2022-01-10 11:39:00 2022-01-11 14:41:00 Inpatient EM Gopal Lopes [facility] [id number] [facility] are Galindo Florian 2022-01-10 11:39:00 2022-01-11 14:41:00 Inpatient EM Gopal Lopes [facility] [id number] [facility] are [facility] 2021-07-24 00:00:00 2021-07-24 00:00:00 Telephone Carrie Rivas [facility] [address] 1.2.840.114 350.1.13.58 9.2.7.2.[id number] [facility] [address] [facility] 2021-03-08 01:09:00 2021-03-08 03:04:00 Emergency Oseas Michelle [facility] 1.2.840.114 350.1.13.10 4.2.7.2.686 [id number] [facility] 2021-01-09 10:29:25 2021-01-09 23:59:00 Hospital Encounter Rosas Chandra [facility] 1.2.840.114 350.1.13.10 4.2.7.2.686 [id number] [facility] 2021-01-09 10:16:46 2021-01-09 10:52:49 Office Visit Rosas Chandra Brett [facility]GICAL [facility] 1.2.840.114 350.1.13.10 4.2.7.2.686 [id number] [facility] 2021-01-09 10:15:00 2021-01-09 10:52:49 Outpatient R SILVINO GALVAN [facility] [id number] [facility] 2020-11-22 22:49:00 2020-11-23 06:18:00 Emergency Dyan Lopez [facility] 1.2.840.114 350.1.13.10 4.2.7.2.686 [id number] [facility] 2020-11-22 22:49:00 2020-11-22 22:49:00 Emergency X DYAN LOPEZ [facility] ERT [id number] [facility] 2020-11-18 18:09:00 2020-11-18 18:21:00 Emergency Chelo Higgins [facility] 1.2.840.114 350.1.13.10 4.2.7.2.686 [id number] [id number] [facility] 2020-11-04 22:01:00 2020-11-04 23:47:00 Emergency X [facility] ERT [id number] [facility] 2020-11-04 22:01:00 2020-11-04 23:47:00 Emergency [facility] 1.2.840.114 350.1.13.10 4.2.7.2.686 [id number] [facility] 2020-02-11 00:51:00 2020-02-11 02:35:00 Emergency Segundo Marin [facility] 1.2.840.114 350.1.13.10 4.2.7.2.686 [id number] [facility] 2020-02-11 00:51:00 2020-02-11 00:51:00 Emergency SEGUNDO BETANCOURT [facility] ERT [id number] [facility] 2019-11-20 19:36:41 2019-11-20 22:05:00 Emergency X SEGUNDO MARIN [facility] ERT [id number] [facility] Results Test Description Test Time Test Comments Results Result Co mments Source [facility] [id number] 18:37:24* Test Item Value Reference Range Interpretation Comme nts LIPASE (test code = 9958307160) 61 U/L 0-220 Lab Interpretation (test cod e = 29945-0) Normal [facility] with [id number] 18:18:19* Test Item Value Reference Range Interpretation [...] 33.7 g/dL 31.2-35.0 RDW-SD (test code = 53391-4) 41.0 fL 38.5-51.6 RDW-CV (test code = 788-0) 12.4 % 12.1-15.4 PLT (test code = 777-3) 192 150-328 MPV (test code = 09706-9) 10.5 fL 9.8-13.0 NRBC/100 WBC (test code = 2082753158) 0.0 0.0-10.0 NRBC x10^3 (test code = 3196471878) See_Comment [Automated me ssage] The system which generated this result transmitted reference range: 10*3/?L. The reference range was not used to interpret this result as normal/abnormal. GRAN MAT (NEUT) % (test code = 770-8) 58.9 % IMM GRAN % (test code = 0191150815) 0.20 % LYMPH % (test code = 736-9) 33.0 % MONO % (test code = 5905-5) 6.0 % EOS % (test code = 713-8) 1.4 % BASO % (test code = 706-2) 0.5 % GRAN MAT x10^3(ANC) (test code = 6522715134) 3.73 10*3/uL 1.99-6.95 IMM GRAN x10^3 (test code = 7958233992) 0.00-0.06 LYMPH x10^3 (test code = 731-0) 2.09 10*3/uL 1.09-3.23 MONO x10^3 (test code = 742-7) 0.38 10*3/uL 0.36-1.02 EOS x10^3 (test code = 711-2) 0.09 10*3/uL 0.06-0.53 BASO x10^3 (test code = 704-7) 0.03 10*3/uL 0.01-0.09 [facility] [id number] 09:31:31* Test Item Value Reference Range Interpretation Comme nts TROPONIN I (test code = 4710072870) 0.011 ng/mL <=0.034 GUY (test code = [...] of biotin. Lab Interpretation (test code = 70570-5) Normal [facility]OL2024-05-13 09:20:47* Test Item Value Reference Range Interpretation Comme nts ALCOHOL (test code = 3301749190) 154 mg/dL GUY (test code = GUY) <10 Fytpghgl88-501 Toxic>100 Depression of X RAY EQUIPMENT SERVICER>400 Fatalities Reported [facility]2024-05-13 09:20:12* Test Item Value Reference Range Interpretation Comme nts MAGNESIUM (test code = 4679243541) 1.9 mg/dL 1.7-2.4 Lab Interpretation (test cod e = 14733-6) Normal [facility] Center[facility]. METABOLIC PANEL (35159)2023-10-24 09:20:11* Test Item Value Reference Range Interpretation Comme nts NA (test code = 3105460220) 141 mmol/L 135-145 K (test code = 9261714987) 3.5 mmol/L 3.5-5.0 CL (test code = 5815479249) 107 mmol/L 98-108 CO2 TOTAL (test code = 7851595848) 25 mmol/L 23-31 AGAP (test code = 7131658568) 9 2-16 BUN (test code = 0954669853) 11 mg/dL 7-23 GLUCOSE (test code = 3429454506) 106 mg/dL 70-110 CREATININE (test code = 2160-0) 0.99 mg/dL 0.60-1.25 TOTAL BILI (test code = 9621192765) 0.4 mg/dL 0.1-1.1 CALCIUM (test code = 1962422212) 8.7 mg/dL 8.6-10.6 T PROTEIN (test code = 8677432207) 7.1 g/dL 6.3-8.2 ALBUMIN (test code = 5816128032) 4.3 g/dL 3.5-5.0 ALK PHOS (test code = 3881091304) 75 U/L 34-122 ALTv (test code = 1742-6) 50 U/L 5-50 AST(SGOT) (test code = 5198304648) 36 U/L 13-40 eGFR (test code = 39626-9) 96.9 mL/min/1.73m2 CKD-EPI eGFR (20 21). Assuming creatinine has been stable day-to-day for at least three months, the eGFR indicates Category G1 (>= 90 mL/min/1.73 m2) [facility] WITH [id number] 09:02:49* Test Item Value Reference Range Interpretation [...] g/dL 31.2-35.0 H RDW-SD (test code = 67692-8) 40.5 fL 38.5-51.6 RDW-CV (test code = 788-0) 12.4 % 12.1-15.4 PLT (test code = 777-3) 207 150-328 MPV (test code = 58845-2) 10.2 fL 9.8-13.0 NRBC/100 WBC (test code = 1882808023) 0.0 0.0-10.0 NRBC x10^3 (test code = 1090661414) See_Comment [Automated messa ge] The system which generated this result transmitted reference range: 10*3/?L. The reference range was not used to interpret this result as normal/abnormal. GRAN MAT (NEUT) % (test code = 770-8) 55.6 % IMM GRAN % (test code = 4418142738) 0.50 % LYMPH % (test code = 736-9) 37.7 % MONO % (test code = 5905-5) 5.1 % EOS % (test code = 713-8) 0.8 % BASO % (test code = 706-2) 0.3 % GRAN MAT x10^3(ANC) (test code = 6281958870) 3.28 10*3/uL 1.99-6.95 IMM GRAN x10^3 (test code = 2543076529) 0.03 10*3/uL 0.00-0.06 LYMPH x10^3 (test code = 731-0) 2.23 10*3/uL 1.09-3.23 MONO x10^3 (test code = 742-7) 0.30 10*3/uL 0.36-1.02 L EOS x10^3 (test code = 711-2) 0.05 10*3/uL 0.06-0.53 L BASO x10^3 (test code = 704-7) 0.01-0.09 Lab Interpretation (test code = 77259-4) Abnormal [facility] Center[facility] Acid Whole Lxffg3783-65-50 08:38:48* Test Item Value Reference Range Interpretation Comme nts LACTIC ACID (test code = 6662380657) 1.52 mmol/L 0.50-2.20 Lab Interpretation (test cod e = 76886-7) Normal [facility] [id number] 10:44:03* Test Item Value Reference Range Interpretation Comme nts TROPONIN I (test code = 8264943236) 0.006 ng/mL <=0.034 GUY (test code = [...] of biotin. Lab Interpretation (test code = 69397-1) Normal [facility] CenterLIPASE2022-10-15 11:27:19* Test Item Value Reference Range Interpretation Comme nts LIPASE (test code = 3712115114) 36 U/L 0-220 Lab Interpretation (test cod e = 50157-1) [facility] [id number] 11:06:12* Test Item Value Reference Range Interpretation Comments TROPONIN I (test code = 7277907081) 0.003 ng/mL See_Comment [Automated message] The system [...] of biotin. Lab Interpretation (test code = 61099-5) Normal [facility] [place] [id number] 09:12:39* Test Item Value Reference Range Interpretation Comments TROPONIN I (test code = 4442545035) 0.005 ng/mL See_Comment [Automated message] The system [...] of biotin. Lab Interpretation (test code = 52224-6) Normal [facility]. METABOLIC PANEL (90928)2022-03-27 09:01:17* Test Item Value Reference Range Interpretation Comme nts NA (test code = 3160831411) 147 mmol/L 135-145 H K (test code = 8385655241) 3.9 mmol/L 3.5-5 CL (test code = 1115253188) 107 mmol/L 98-108 CO2 TOTAL (test code = 1539808292) 24 mmol/L 23-31 AGAP (test code = 9665578843) 2-16 BUN (test code = 1744271106) 7 mg/dL 7-23 GLUCOSE (test code = 8086672398) 105 mg/dL 70-110 CREATININE (test code = 4581568123) 0.92 mg/dL 0.6-1.25 TOTAL BILI (test code = 6826514714) 0.6 mg/dL 0.1-1.1 CALCIUM (test code = 8380802345) 10.4 mg/dL 8.6-10.6 T PROTEIN (test code = 9763068322) 8.1 g/dL 6.3-8.2 ALBUMIN (test code = 1944442888) 5.1 g/dL 3.5-5 H ALK PHOS (test code = 9228054179) 74 U/L 34-122 ALTv (test code = 1742-6) 50 U/L 5-50 AST(SGOT) (test code = 0982468775) 33 U/L 13-40 eGFR (test code = 1468663621) mL/min/1.73m2 GUY (test code = GUY) Association [...] imaging tests). Lab Interpretation (test code = 24994-0) Abnormal [facility] WITH [id number] 08:50:16* Test Item Value Reference Range Interpretation Comme nts WBC (test code = 6690-2) See_Comment [Logical Apps] The system which generated this result transmitted [...] g/dL 31.2-35 H RDW-SD (test code = 70221-5) 39.8 fL 38.5-51.6 RDW-CV (test code = 788-0) 12.6 % 12.1-15.4 PLT (test code = 777-3) See_Comment [Automated Quad/Graphicsa ge] The system which generated this result transmitted reference range: 150 - 328 10*3/?L. The reference range was not used to interpret this result as normal/abnormal. MPV (test code = 36651-8) 10.0 fL 9.8-13 NRBC/100 WBC (test code = 0500564032) See_Comment [Automated Songfor ssage] The system which generated this result transmitted reference range: 0.0 - 10.0 /100 WBCs. The reference range was not used to interpret this result as normal/abnormal. NRBC x10^3 (test code = 1053300444) See_Comment [Automated Quad/Graphicsa ge] The system which generated this result transmitted reference range: 10*3/?L. The reference range was not used to interpret this result as normal/abnormal. GRAN MAT (NEUT) % (test code = 770-8) 53.1 % IMM GRAN % (test code = 8507789732) 0.40 % LYMPH % (test code = 736-9) 40.0 % MONO % (test code = 5905-5) 5.0 % EOS % (test code = 713-8) 1.0 % BASO % (test code = 706-2) 0.5 % GRAN MAT x10^3(ANC) (test code = 6956820218) 4.06 10*3/uL 1.99-6.95 IMM GRAN x10^3 (test code = 3533860341) 0.03 10*3/uL 0-0.06 LYMPH x10^3 (test code = 731-0) 3.06 10*3/uL 1.09-3.23 MONO x10^3 (test code = 742-7) 0.38 10*3/uL 0.36-1.02 EOS x10^3 (test code = 711-2) 0.08 10*3/uL 0.06-0.53 BASO x10^3 (test code = 704-7) 0.04 10*3/uL 0.01-0.09 Lab Interpretation (test code = 05929-3) Abnormal [facility] METABOLIC [id number] 09:02:00* Test Item Value Reference Range Interpretation [...] CA) 8.5 mg/dL 8.5-10.1 N CBC W/AUTO [id number] 08:37:00* Test Item Value Reference Range Interpretation [...] 0.000 10 3/uL 0.000-0.012 N BASIC METABOLIC [id number] 07:29:00* Test Item Value Reference Range Interpretation [...] code = CA) 8.7 mg/dL 8.5-10.1 N [id number] 07:29:00* Test Item Value Reference Range Interpretation Comme nts PHOSPHOROUS (test code = PHOS) 3.5 mg/dL 2.5-4.9 N [id number] 07:29:00* Test Item Value Reference Range Interpretation Comme nts MAGNESIUM (test code = MAG) 2.1 mg/dL 1.8-2.4 N CBC W/AUTO [id number] 07:10:00* Test Item Value Reference Range Interpretation [...] 3/uL 0.000-0.012 N - CT ABD PELVIS W/[id number] 20:21:00 [facility] : 1980 Sex: MPatient Name: MAURICIO BLISS Unit No: [id number] EXAMS: CPT CODE: [id number] CT ABD PELVIS W/CONT 58768GUFI: - CT ABD PELVIS W/CONT HISTORY: Abdominal [...] by:[email or web address] Electronic Signature Date/Time: 01/09/2022 (2020)Orig Print D/T:S: 01/09/2022 (2023) Name[facility]: Deborah Brothers [address] : 1980 Age: 41 Sex: [place] [id number] Loc: NC.5201 1 Exam Date: 01/09/2022 Status: ADM IN PH: FAX: PAGE 1 Signed Report- US ABDOMEN [id number] 12:26:00 [facility]URIC[facility] BLISS : 1980 Sex: MPatient Name: MAURICIO BLISS Unit No: [id number] EXAMS: CPT CODE: [id number] US ABDOMEN LTD 77594 GALLBLADDER/LIVER ULTRASOUND TECHNIQUE: Ultrasound of the right [...] It measures 12.3 x 5.9 x 6.3 cm.IMPRESSION: 1. No acute findings. 2. Moderate hepatic steatosis 3. Surgically absent gallbladder. at 1226 Reported and signed by: Jerod Olguin MD CC: Self Referred; Gopal Lopes MD; Deborah HERMAN Technologist: Kandice Tran Probe: Trscr Dt/Tm: 01/09/2022 (1226) by:[email or web address] Electronic Signature Date/Time: 01/09/2022 (1226)Orig Print D/T: S: 01/09/2022 (0917) Name: MAURICIO BLISS [facility] [place] Phys: Deborah Brothers [address] : 1980 Age: 41 Sex: [place] [address] Loc: NC.5201 1 Exam Date: 01/09/2022 Status: [...] LDLC) 82 mg/dL 0-100 N LIVER FUNCTION [id number] 10:55:00* Test Item Value Reference Range Interpretation [...] code = ALKP) 65 U/L 45-117 N [id number] 10:55:00* Test Item Value Reference Range Interpretation Comme nts PHOSPHOROUS (test code = PHOS) 3.0 mg/dL 2.5-4.9 N [id number] 10:55:00* Test Item Value Reference Range Interpretation Comme nts LIPASE (test code = LIP) 28 U/L 73-393 L [id number] 10:55:00* Test Item Value Reference Range Interpretation Comme nts MAGNESIUM (test code = MAG) 1.9 mg/dL 1.8-2.4 N HGBA1C - GLYCOSYLATED [id number] 10:55:00* Test Item Value Reference Range Interpretation Comme nts GLYCOSYLATED HEMOGLOBIN (HA1 C) (test code = GLYHGB) 5.4 % 4.5-5.9 N BASIC METABOLIC [id number] 10:55:00* Test Item Value Reference Range Interpretation [...] = CA) 8.6 mg/dL 8.5-10.1 N LACTIC [id number] 10:20:00* Test Item Value Reference Range Interpretation Comme nts LACTIC ACID (test code = LACT) 0.6 mmol/L 0.4-2.0 N CBC W/AUTO [id number] 09:44:00* Test Item Value Reference Range Interpretation [...] 10 3/uL 0.000-0.012 N COVID 19 INHOUSE [id number] 07:18:00* Test Item Value Reference Range Interpretation Comme nts COVID 19 INHOUSE AG (test code = QKFHC12RNNH) NEGATIVE Negative Negative results do not preclude 2019-nCoV infection andshould not be used as the sole basis for treatment or otherpatient management decisions. Negative results must becombined with clinical observations, patient history, andepidemiological information. Notes Date/Time Note Provider Source 2024-10-29 21:32:20 CC: rash x 1 week. Pt reports he works in the [employer] and his socks were damp, then the next day the rash started on his meera feet up to the knee. Danis Blevins RN [facility] 2024-06-19 13:49:56 Pt given printed and verbal [...] with steady gait, in no apparent distress, STANT STATISTICIAN Kristina Childers RN [facility] 2024-06-19 10:51:52 Bilateral low back pain x2 weeks. Denies injury. Pain radiates down hips. STANT STATISTICIAN Romana Lucero RN [facility] 2023-10-24 05:20:47 Pt given printed and verbal [...] with steady gait, in no apparent distress. [facility] 2023-10-24 04:19:58 Pt is still confused, A&Ox1, only oriented to person. Continues to ask where he is and how he got here, and continues to attempt to get out of bed. There is a strong smell of alcohol when pt is speaking. [facility] 2023-10-24 03:18:09 Pt brought in by [facility] after being called out to pt having seizures. EMS reports that while on scene pt had 2 episodes within 5 min of what appeared to them to be seizures, neck stiffened, arms and legs began shaking. Following the episodes pt was A&Ox1, only knew his name. Pt was given 2 mg of Ativan IV and 300mls of NS, no episodes following the Ativan. [facility] Fernanda Lopez RN [facility] 2023-10-24 03:16:00 Associated Order(s): EKG-12 Lead ROUTINE ONCE Pre-Procedure Diagnose(s): Seizure Post-Procedure Diagnose(s): Seizure [facility] Emergency Department Note Patient Name: Mauricio Bliss Date of : 1980 43 year old male Treatment Room: Room/bed info not found Primary Care Physician: Brandon Morris Jr Patient Escorted by: Self [9] [facility] Lee) [43] EMS Treatment Prior to ED Arrival: [facility] treatment: IVF;Other (comment) [facility] treatment comments: Ativan 2 mg Travel and [...] Negative THC Negative Negative COMP. METABOLIC PANEL (35661) NA 141 135 - 145 mmol/L K [...] VW CBC WITH DIFF COMP. METABOLIC PANEL (21191) TROPONIN I Lactic Acid Whole Blood Lactic [...] ED Physician in the absence of a operating theatre technician: yes Interpretation: Interpretation: abnormal Rate: ECG rate: [...] Follow-up: Electronically signed by: Dyan Lopez DO 10/24/23509 [facility] 2023-01-31 06:20:58 Formatting of this n ote [...] in no apparent distress, Christine Rivera RN [facility] 2023-01-31 01:27:41 Formatting of this n ote might be different from the original. Pt reports a pain in his chest. Pain is intermediate and last approximately 1 minute long. Pt oxygen saturation dropped down to 89% during episode and resume to 95% after episode passed. LDOT Tila Brooks RN [facility] 2023-01-31 00:54:49 Formatting of this n ote might be different from the original. Patient to ED with . Per , patient is having seizure and chest pain an hour ago. Per , patient took a couple of beers last night. Elton Yun RN [facility] 2023-01-31 00:48:00 Formatting of this n ote is different from the original. [facility] Emergency Department Note Patient Name: Mauricio Bliss Date of : 1980 42 year old male Treatment Room: Room/bed info not found Primary Care Physician: Brandon Morris Jr Patient Escorted by: Family [5] Mode of Arrival: Personal means [1] EMS Treatment Prior to ED Arrival: [facility] treatment: None Exam Limited by: pt's pain [...] past and, per , he went to [facility] but they were unable to complete [...] CT CHEST PULMONARY ANGIOGRAM Narrative Ordering physician: ALEXA SEGAL Indication: Chest pain, short of breath [...] cardiomegaly without pericardial effusion. RL: 460 AFC: 95093 Lab Results (24h): (Reviewed by me) Recent [...] 0.01 - 0.09 10*3/uL COMP. METABOLIC PANEL (92322) Collection Time: 01/31/23 1:07 AM Result Value [...] ANGIOGRAM CBC WITH DIFF COMP. METABOLIC PANEL (57648) LIPASE TROPONIN I N-TERMINAL PRO-BNP MAGNESIUM ETHANOL [...] DC home. Recommend patient follow-up with a operating theatre technician and his mother states that she will give him the name of hers. The patient is now able to clarify what happened at [facility] (see HPI). He states that they were unable to reproduce the abnormal rhythm that was seen at [facility] and so they were not able to [...] in pain [LS] 0145 COMP. METABOLIC PANEL (66325)(!) unremarkable [LS] 0145 MAGNESIUM within normal limits [LS] 0145 LIPASE within normal limits [LS] 0145 CREATINE KINASE within normal limits, which is not consistent with a significant seizure just prior to arrival [LS] 0145 CBC WITH DIFF(!) unremarkable [LS] 0145 ETHANOL =214 [LS] ED Course User Index [LS] Alexa Segal MD Diagnosis/Impression as of 01/31/23 0550 Chest pain at rest Seizure - unsure if was true seizure Hypertension, unspecified type Diagnosis/Impression: ICD-10-CM 1. Chest pain at rest R07.9 2. Seizure R56.9 Disposition/Condition: ED Disposition None Discharge Medications: Patient's Medications No medications on file Follow-up: MDM: Medical Decision Making Differential Diagnosis for this patient's chest pain includes angina, acute CT, CHF, pericardial effusion/pericarditis, pneumonia, pulmonary embolism, acute [...] and/or Complexity of Data Reviewed Independent Historian: carlota External Data Reviewed: labs, radiology, ECG and [...] Portions of this note were completed using [employer]. Occasional phonetic or grammatical errors may escape proofreading. Electronically signed by: Alexa Segal M.D., [facility] Nuclear Process Engineer Clinical Professor of Emergency Medicine 01/31/2023 12:50 AM Alexa Segal MD 01/31/23 0602 [facility] 2022-01-11 09:48:00 [facility] ([facility]) Med Order Sheet REPORT #: [id number] REPORT STATUS: Signed DATE: 01/11/22 TIME: 947 PATIENT: MAURICIO BLISS UNIT #: [id number] ROOM #: AL.5201 BED: 1 : 80 AGE: 41 SEX: M ATTEND: Gopal Lopes MD ADM AUTHOR: Deborah Retana ATT ENTION *EDITS and/or ADDENDA must be made in Patient Keeper for this note. * * Edits and ammendments created in oDesk are not visible * * in Patient [...] * * Edits and ammendments created in oDesk are not visible * * in Patient Keeper or the legal medical record ([facility]). * [facility] #: [phone] END OF REPORT [facility] 2022-01-11 09:48:00 [facility] ([facility]) Hospitalist D/C Summary REPORT #: [id number] REPORT STATUS: Signed DATE: 01/11/22 TIME: 0948 PATIENT: MAURICIO BLISS UNIT #: [id number] ROOM #: NC.5201 BED: 1 : 80 AGE: 41 SEX: M ATTEND: Gopal Lopes MD ADM AUTHOR: Deborah Retana ATT ENTION *EDITS and/or ADDENDA must be made in Patient Keeper for this note. * * Edits and ammendments created in oDesk are not visible * * in Patient Keeper or the legal medical record (HPF). * -- PROBLEMS/PROCEDURES -- ADMISSION DATE: 01/10/22 [...] polyps presented as a direct transfer from [facility] ER with c/o diffuse abd pain (greatest [...] schedule colonoscopy as he lives in [facility] GERD - Continue PPI HTN - [...] No eCQM 2019. Details: Details: Order number: [id number] Category: PKDC - PK Discharge Orders Order status: Transmitted Details: Discharge order: Yes Discharge to: Home/Self Care Diet: Cardiac Activity: As Tolerated PCP: Your PCP PCP follow up timeframe: In 1-2 weeks Additional instructions: 1. Complete antibiotics until finished. 2. Follow-up outpatient with your outsole flexer in 1 to 2 weeks to schedule [...] Retana on 01/11/22 at 20:31 Cosigned by MEHUL RAMACHANDRAN MD on 01/12/22 at 07:10 at 0710 at 0710 ATT ENTION *EDITS and/or ADDENDA must be made in Patient Keeper for this note. * * Edits and ammendments created in oDesk are not visible * * in Patient Keeper or the legal medical record (HPF). * [facility] #: [id number] END OF REPORT [facility] 2022-01-11 09:06:00 [facility] ([facility]) Gastroenterology Prog. Note REPORT #: [id number] REPORT STATUS: Signed DATE: 01/11/22 TIME: 905 PATIENT: MAURICIO BLISS UNIT #: [id number] ROOM #: NC.5201 BED: 1 : 80 AGE: 41 SEX: M ATTEND: Gopal Lopes MD ADM AUTHOR: Mateo Martin MD ATT ENTION *EDITS and/or ADDENDA must be made in Patient Keeper for this note. * * Edits and ammendments created in oDesk are not visible * * in Patient [...] * * Edits and ammendments created in [facility] are not visible * * in Patient Keeper or the legal medical record ([facility]). * [facility] #: [phone] END OF REPORT [facility] 2022-01-10 13:00:00 [facility] ([facility]) Hospitalist Progress Note REPORT #: [id number] REPORT STATUS: Signed DATE: 01/10/22 TIME: 1300 PATIENT: MAURICIO BLISS UNIT #: [id number] ROOM #: [facility] BED: 1 : 80 AGE: 41 SEX: M ATTEND: Gopal Lopes MD ADM AUTHOR: Deborah Retana ATT ENTION *EDITS and/or ADDENDA must be made in Patient Keeper for this note. * * Edits and ammendments created in oDesk are not visible * * in Patient [...] GI for colonoscopy as he lives in [facility] Diarrhea - resolved - f/u stool [...] * * Edits and ammendments created in oDesk are not visible * * in Patient Keeper or the legal medical record ([facility]). * RPT #: [id number] END OF REPORT [facility] 2022-01-10 12:39:00 [facility] ([facility]) Gastroenterology Prog. Note REPORT #: [id number] REPORT STATUS: Signed DATE: 01/10/22 TIME: 1239 PATIENT: MAURICIO BLISS UNIT #: [id number] ROOM #: NC.5201 BED: 1 : 80 AGE: 41 SEX: M ATTEND: Gopal Lopes MD ADM AUTHOR: Mateo Martin MD ATT ENTION *EDITS and/or ADDENDA must be made in Patient Keeper for this note. * * Edits and ammendments created in oDesk are not visible * * in Patient Keeper or the legal medical record ([facility]). * -- ASSESSMENT AND PLAN -- [...] * * Edits and ammendments created in [facility] are not visible * * in Patient Keeper or the legal medical record (HPF). * RPT #: [id number] END OF REPORT [facility] 2022-01-10 11:31:00 [facility] ([facility]) Progress Note REPORT #: [id number] REPORT STATUS: Signed DATE: 01/10/22 TIME: 1131 PATIENT: MAURICIO BLISS UNIT #: [id number] ROOM #: NC.5201 BED: 1 : 80 AGE: 41 SEX: M ATTEND: Gopal Lopes MD ADM AUTHOR: Vishal De La Garza MD ATT ENTION *EDITS and/or ADDENDA must be made in Patient Keeper for this note. * * Edits and ammendments created in oDesk are not visible * * in Patient [...] Patient Keeper or the legal medical record ([facility]). * RPT #: [id number] END OF REPORT [facility] 2022-01-10 09:27:00 [facility] ([facility]) Med Order Sheet REPORT #: [id number] REPORT STATUS: Signed DATE: 01/10/22 TIME: 926 PATIENT: MAURICIO BLISS UNIT #: [id number] ROOM #: NC.5201 BED: 1 : 80 AGE: 41 SEX: M ATTEND: Gopal Lopes MD [facility] AUTHOR: Deborah Retana ATT ENTION *EDITS and/or ADDENDA must be made in Patient Keeper for this note. * * Edits and ammendments created in [employer] are not visible * * in Patient Keeper or the legal medical record ([facility]). * Admission Medication Reconciliation -- CONTINUED [...] * * Edits and ammendments created in oDesk are not visible * * in Patient Keeper or the legal medical record (HPF). * [facility] #: [id number] END OF REPORT [facility] 2022-01-09 21:30:00 [facility] ([facility]) Gastroenterology Consult REPORT #: [id number] REPORT STATUS: Signed DATE: 01/09/22 TIME: 2129 PATIENT: MAURICIO BLISS UNIT #: [id number] ROOM #: NC.5201 BED: 1 : 80 AGE: 41 SEX: M ATTEND: Gopal Lopes MD ADM AUTHOR: Mateo Martin MD ATT ENTION *EDITS and/or ADDENDA must be made in Patient Keeper for this note. * * Edits and ammendments created in oDesk are not visible * * in Patient [...] same presented as a direct transfer from [facility] ER with c/o diffuse abd pain (greatest [...] * * Edits and ammendments created in [facility] are not visible * * in Patient Keeper or the legal medical record (HPF). * RPT #: [id number] END OF REPORT [facility] 2022-01-09 12:53:00 [facility] ([facility]) General Surg. Consultation REPORT #: [id number] REPORT STATUS: Signed DATE: 01/09/22 TIME: 1252 PATIENT: MAURICIO BLISS UNIT #: [id number] ROOM #: NC.5201 BED: 1 : 80 AGE: 41 SEX: M ATTEND: Gopal Lopes MD ADM AUTHOR: Vishal De La Garza MD ATT ENTION *EDITS and/or ADDENDA must be made in Patient Keeper for this note. * * Edits and ammendments created in oDesk are not visible * * in Patient Keeper or the legal medical record ([facility]). * -- ASSESSMENT AND PLAN -- [...] * * Edits and ammendments created in [facility] are not visible * * in Patient Keeper or the legal medical record (HPF). * RPT #: [id number] END OF REPORT [facility] 2022-01-09 09:00:00 [facility] ([facility]) Hospitalist Tres Knutson REPORT #: [id number] REPORT STATUS: Signed DATE: 01/09/22 TIME: 09 PATIENT: MAURICIO BLISS UNIT #: [id number] ROOM #: NC.5201 BED: 1 : 80 AGE: 41 SEX: M ATTEND: Gopal Lopes MD ADM AUTHOR: Deborah Retana ATT ENTION *EDITS and/or ADDENDA must be made in Patient Keeper for this note. * * Edits and ammendments created in [facility] are not visible * * in Patient [...] polyps presented as a direct transfer from [facility] ER with c/o diffuse abd pain (greatest [...] * * Edits and ammendments created in oDesk are not visible * * in Patient Keeper or the legal medical record (HPF). * [facility] #: [phone] END OF REPORT [facility] 2022-01-09 06:27:00 [facility] ([facility]) EMERGENCY PROVIDER REPORT REPORT#:[id number] REPORT STATUS: Signed DATE:01/09/22 TIME: 626 PATIENT: MAURICIO BLISS UNIT #: [id number] [address] AGE: 41 SEX: M PCP [...] by . 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 ED Course Medication(s) Ordered Medication(s) Ordered: Central Nervous System Agents Sig/Scar Start time Last Medication Dose Route Stop Time Status Admin Morphine Sulfate 4 MG X1ED STA 01/09 0620 DC 01/09 IV 01/09 0621 0630 Gastrointestinal Drugs Sig/Scar Start time Last Medication Dose Route Stop Time Status Admin Ondansetron HCl 4 MG X1ED STA 01/09 0620 DC 01/09 IV 01/09 0621 0629 Patient Discharge Departure [...] )( Admission Accepts Yes )( Accepted Time 630 )( Accepted Date 01/09/22 at 1411 RPT #:[id number] END OF REPORT [facility]
--- NOTE | 2024-10-31 20:41 | EDPHYS ---
Physician Documentation [facility] Name: Sergo Bliss Age: 44 yrs Sex: Male : 1980 Arrival Date: 10/31/2024 Time: 19:49 Bed IW3 Private MD: ED Physician Scott Basurto HPI: 10/31 20:17 This 44 yrs old Male presents to ER via Ambulatory with complaints of Skin Problem - rn legs. 20:19 The patient's rash thought to be caused by an unknown cause. The rash is located on the rn right leg and left leg. Onset: The symptoms/episode began/occurred 1 week(s) ago. The patient has not experienced similar symptoms in the past. The patient has been recently seen by a physician:. Historical: - Allergies: 20:11 Toradol; al5 - Home Meds: 20:11 amlodipine 5 mg tab 1 tab once daily [Active]; lisinopril 5 mg Oral tab 1 tab once al5 daily [Active]; omeprazole 40 mg Oral cpDR 1 cap 2 times per day [Active]; - PMHx: 20:11 Atrial fibrillation; GERD; Hypertension; al5 - PSHx: 20:11 Cholecystectomy; right hand; Appendectomy; al5 - Immunization history:: Adult Immunizations up to date. - Infectious Disease History:: Denies. - Social history:: Smoking status: Patient reports the use of cigarette tobacco products, smokes one-half pack cigarettes per day. - Family history:: not pertinent. - Hospitalizations: : No recent hospitalization is reported. ROS: 20:19 Constitutional: Negative for fever, chills, and weight loss, MS/Extremity: Negative for rn injury and deformity, Skin: +leg rash Exam: 20:19 Constitutional: This is a well developed, well nourished patient who is awake, alert, rn and in no acute distress. MS/ Extremity: Pulses equal, no cyanosis. Neurovascular intact. Full, normal range of motion. Equal circumference. +folliculitis bilateral lower ext Vital Signs: 20:09 BP 134 / 87; Pulse 83; Resp 16; Temp 98.7; Pulse Ox 100% on R/A; Weight 102.06 kg; al5 Height 5 ft. 10 in. ; 20:09 Body Mass Index 32.28 (102.06 kg, 177.8 cm) al5 MDM: 19:57 Medical Screening Exam initiated rn 20:19 Differential diagnosis: cellulitis, folliculitis, dermatitis. Data reviewed: vital rn signs, nurses notes, and as a result, I will discharge patient. 20:39 Counseling: I had a detailed discussion with the patient and/or guardian regarding the rn historical points, exam findings, and any diagnostic results supporting the discharge/admit diagnosis, the need for outpatient follow up, to return to the emergency department if symptoms worsen or persist or if there are any questions or concerns that arise at home. ED course: Patient already seen at [facility] emergency room a few days ago, put on clindamycin, has only had a couple days, reports rash is getting better but was cleared to go back to work tomorrow and does not feel like he can. Will discharge home with continuation of clindamycin as rash is improving and will extend his days off. Return precautions given and understood.. Administered Medications: No medications were administered Disposition Summary: 10/31/24 20:40 Discharge Ordered Notes: Location: Home rn Problem: new rn Symptoms: have improved rn Condition: Stable rn Diagnosis - Folliculitis rn Followup: rn - With: Private Physician - When: As needed - Reason: Recheck today's complaints, Re-evaluation by your physician Discharge Instructions: - Folliculitis rn - Discharge Summary Sheet vk Forms: - Medication Reconciliation Form rn - Antibiotic governor assembler - Prescription Opioid Use rn - Patient Portal Instructions rn - Leadership Thank You Letter rn - Work release form vk Signatures: Scott Basurto MD MD rn Langhorst, Amanda, RN RN al5
--- NOTE | 2024-10-31 20:41 | ER ---
Nurse's Notes [facility] Name: Sergo Bliss Age: 44 yrs Sex: Male : 1980 Arrival Date: 10/31/2024 Time: 19:49 Bed IW3 Private MD: Diagnosis: Folliculitis Presentation: 10/31 20:09 Chief complaint: Patient states: started to notice a rash last , went to [facility] al5 on Tuesday and was sent home with clindamycin and was told it could be staph. states the rash has gotten worse and has gone up both legs and is hot to touch and burning. Coronavirus screen: At this time, the client does not indicate any symptoms associated with coronavirus-19. Ebola Screen: No symptoms or risks identified at this time. Initial Sepsis Screen: Does the patient meet any 2 criteria? No. Patient's initial sepsis screen is negative. Does the patient have a suspected source of infection? No. Patient's initial sepsis screen is negative. Risk Assessment: Do you want to hurt yourself or someone else? Patient reports no desire to harm self or others. Onset of symptoms was October 25, 2024. 20:09 Method Of Arrival: Ambulatory al5 20:09 Acuity: LAMAR 4 al5 Triage Assessment: 20:12 General: Appears in no apparent distress. comfortable, Behavior is calm, cooperative. al5 Pain: Denies pain. EENT: No signs and/or symptoms were reported regarding the EENT system. Neuro: Level of Consciousness is awake, alert, obeys commands, Oriented to person, place, time, situation. Cardiovascular: Capillary refill < 3 seconds Patient's skin is warm and dry. Respiratory: Airway is patent Respiratory effort is even, unlabored, Respiratory pattern is regular, symmetrical. GI: No signs and/or symptoms were reported involving the gastrointestinal system. : No signs and/or symptoms were reported regarding the genitourinary system. Derm: Rash noted that is red, on right leg and left leg. Musculoskeletal: No signs and/or symptoms reported regarding the musculoskeletal system. Historical: - Allergies: 20:11 Toradol; al5 - Home Meds: 20:11 amlodipine 5 mg tab 1 tab once daily [Active]; lisinopril 5 mg Oral tab 1 tab once al5 daily [Active]; omeprazole 40 mg Oral cpDR 1 cap 2 times per day [Active]; - PMHx: 20:11 Atrial fibrillation; GERD; Hypertension; al5 - PSHx: 20:11 Cholecystectomy; right hand; Appendectomy; al5 - Immunization history:: Adult Immunizations up to date. - Infectious Disease History:: Denies. - Social history:: Smoking status: Patient reports the use of cigarette tobacco products, smokes one-half pack cigarettes per day. - Family history:: not pertinent. - Hospitalizations: : No recent hospitalization is reported. Screenin:12 [facility] ED Fall Risk Assessment (Adult) History of falling in the last 3 months, al5 including since admission No falls in past 3 months (0 pts) Confusion or Disorientation No (0 pts) Intoxicated or Sedated No (0 pts) Impaired Gait No (0 pts) Mobility Assist Device Used No (0 pt) Altered Elimination No (0 pt) Score/Fall Risk Level 0 - 2 = Low Risk Oriented to surroundings, Maintained a safe environment, Hourly rounding (assess needs \T\ fall precautionary measures) done. Abuse screen: Denies threats or abuse. Denies injuries from another. Nutritional screening: No deficits noted. Tuberculosis screening: No symptoms or risk factors identified. Assessment: 20:12 Reassessment: see triage assessment. al5 Vital Signs: 20:09 BP 134 / 87; Pulse 83; Resp 16; Temp 98.7; Pulse Ox 100% on R/A; Weight 102.06 kg; al5 Height 5 ft. 10 in. ; 20:09 Body Mass Index 32.28 (102.06 kg, 177.8 cm) al5 ED Course: 19:50 Patient arrived in ED. im 19:57 Scott Basurto MD is Attending Physician. rn 20:11 Triage completed. al5 20:12 Arm band placed on right wrist. Patient placed in the treatment room, in view of staff al5 members, on pulse oximetry. 20:12 Patient has correct armband on for positive identification. Provided Education on: plan al5 of care. 20:12 No provider procedures requiring assistance completed. al5 21:09 Fernanda Ramirez, RN is Primary Nurse. al5 21:09 Patient did not have IV access during this emergency room visit. al5 Administered Medications: No medications were administered Medication: 20:12 VIS not applicable for this client. al5 Outcome: 20:40 Discharge ordered by . rn 21: Discharged to home ambulatory, al5 21: Condition: good 21: Discharge instructions given to patient, Instructed on discharge instructions, follow up and referral plans. Demonstrated understanding of instructions, follow-up care, 21:09 Patient left the ED. al5 Signatures: Scott Basurto MD MD rn Mendoza, Itzel im Langhorst, Amanda, RN RN al
[2024-10-31 21:15] VITALS: BP 134/87; TEMP 98.7; O2SAT 100
== END 2024-10-31 21:09 | disposition home or self-care (01) ==
LOC: ER 19:49
DX: L73.9 Follicular disorder, unspecified (principal)